=== PATIENT | male | born 1950 | race Caucasian/White ===

== ENCOUNTER → 2018-07-11 11:07 | Outpatient (CLI) | payer MEDICARE, OTHER, SELFPAY ==
[2018-07-11 15:27] LABS: Anion Gap 7 (5-15); BUN 27 mg/dL (7-18); BUN/Creat Ratio 29.7 RATIO (10-20); Calcium,Total 8.8 mg/dL (8.5-10.1); Chloride 107 mmol/L (98-107); Cholesterol 130 mg/dL (200); Creatinine, Serum 0.91 mg/dL (0.70-1.30); EST Glomerular Filtration Rate 88 mL/min (>60); Est Glom Filt Rate - Afr Amer 107 mL/min (>60); Glucose 80 mg/dL (74-106); High Density Lipoprotein 52 mg/dL; PSA,Total - Annual Screen 2.74 ng/mL (0.00-4.00); Sodium Level 141 mmol/L (136-145); Triglycerides 83 mg/dL; Very Low Density Lipoprotein 17 mg/dL (5-40)
== END ==
PROVIDERS: Family Provider Family Medicine; PCP Family Medicine; Referring Provider Family Medicine; Visit Provider Family Medicine
DX: I25.10 Atherosclerotic heart disease of native coronary artery without angina pectoris (principal); E78.00 Pure hypercholesterolemia, unspecified; Z12.5 Encounter for screening for malignant neoplasm of prostate
CPT/HCPCS: 36415; 80048; 80061; 84153; G0103

== ENCOUNTER → 2018-11-27 08:30 | Outpatient (CLI) | payer MEDICARE, SELFPAY ==
[2018-11-27 07:56] VITALS: BMI 40.3
--- NOTE | 2018-11-27 08:55 | RAD_ITS ---
STUDY: X-RAY CHEST REASON FOR EXAM: Male, 68 years old. Shortness of breath x1 month TECHNIQUE: PA and lateral views of the chest. COMPARISON: 02/17/2015 FINDINGS: The lungs are clear and expanded. There is no demonstrated pleural abnormality. Normal size heart. Normal mediastinum and hien. Normal visualized pulmonary arteries. Normal visualized aortic arch and descending thoracic aorta. Normal visualized thoracic spine. Normal visualized ribs, clavicles, and shoulders. There is no demonstrated abnormality of the visualized soft tissue structures of the upper abdomen. RAD/Chest PA and Lateral IMPRESSION: Normal x-ray examination of the chest. Electronically Signed: Bakari Jurado MD at 10:09 EDT , Service support ,
[2018-11-27 09:11] LABS: Anion Gap 8 (5-15); BUN 25 mg/dL (7-18); BUN/Creat Ratio 26.7 RATIO (10-20); Calcium,Total 8.6 mg/dL (8.5-10.1); Chloride 109 mmol/L (98-107); Creatinine, Serum 0.94 mg/dL (0.70-1.30); EST Glomerular Filtration Rate 85 mL/min (>60); Est Glom Filt Rate - Afr Amer 103 mL/min (>60); Glucose 102 mg/dL (74-106); Potassium 4.1 mmol/L (3.5-5.1); Sodium Level 144 mmol/L (136-145)
[2018-11-27 09:30] LABS: BNP,B-Type NATRIURETIC PEPTIDE 121.4 pg/mL (0-100)
== END ==
PROVIDERS: Family Provider Family Medicine; PCP Family Medicine; Visit Provider Nurse Practitioner Acute Care
DX: R06.09 Other forms of dyspnea (principal)
CPT/HCPCS: 36415; 71046; 80048; 83880

== ENCOUNTER → 2018-11-29 07:47 | Outpatient (CLI) | payer MEDICARE, SELFPAY ==
[2018-11-27 07:56] VITALS: BMI 40.3
--- NOTE | 2018-11-30 06:54 | PFTCOMP ---
COMPLETE PULMONARY FUNCTION TEST INTERPRETATION Brief HPI: Patient is a 68 year old male, currently under the care of Katie Jacinto, who presents to [facility] for complete pulmonary function tests secondary to diagnosis of dyspnea on exertion. Respiratory therapist reports good effort and reproducible results. Interpretation: Forced expiration spirometry shows a mild large airways obstructive ventilatory defect with an FEV1 of 100% predicted. There is a significant bronchodilator response in FEV1 by strict ATS criteria. Spirograms are of good quality and plateau slowly, indicating slowly emptying areas of the lungs. The respiratory flow volume loop shows decreased expiratory flow rates at high lung volumes consistent with small airways obstruction. Lung volumes by body plethysmography show a normal total lung capacity at 5.44 L, 90% predicted. All other lung volumes are within normal limits. Diffusion capacity by carbon monoxide is normal at 97% predicted. The airway resistance is normal. No previous pulmonary function tests were available for review. Impression: Fully reversible mild large airways obstructive ventilatory defect, diagnostic of asthma.
== END ==
PROVIDERS: Family Provider Family Medicine; PCP Family Medicine; Referring Provider Nurse Practitioner Acute Care; Visit Provider Nurse Practitioner Acute Care
DX: R06.02 Shortness of breath (principal)
CPT/HCPCS: 94060; 94726; 94729

== ENCOUNTER → 2018-11-30 12:16 | Outpatient (CLI) | payer MEDICARE, SELFPAY ==
[2018-11-27 07:56] VITALS: BMI 40.3
[2018-11-30 12:39] VITALS: PULSE 57; PULSE 64; PULSE 78; PULSE 86; PULSE 92; PULSE 93; PULSE 94; PULSE 99; O2SAT 93; O2SAT 95; O2SAT 97; O2SAT 98; O2SAT 99
--- NOTE | 2018-12-01 10:36 | PCM.PSN.6M ---
PSN 6 Minute Walk Test - 6 Minute Walk Test 6 Minute Walk Test: 6 Minute Walk Test PSN:6-Minute Walk Test Start: 11/30/18 12:39 Freq: Status: Active Protocol: RESP.6MINW Document 11/30/18 12:39 AMENA (Rec: 11/30/18 12:41 AMENA [id number]) 6 Minute Walk Test Date Performed 11/30/18 Time Performed 12:30 Height 5 ft 8 in Weight: 117.934 kg Weight in Pounds 260.[address]: Ar Bronson Assistive device used: None Pre-test Oxygen Delivery Method Room Air Pulse Ox (%) 99 Pulse Rate (60-100 beats/min) 57 L Dyspnea Hannah Scale (0-10) 0 Exertion Hannah Scale (6-20) 6 1st minute Oxygen Delivery Method Room Air Pulse Ox (%) 98 Pulse Rate (60-100 beats/min) 78 2nd minute Oxygen Delivery Method Room Air Pulse Ox (%) 98 Pulse Rate (60-100 beats/min) 86 3rd minute Oxygen Delivery Method Room Air Pulse Ox (%) 98 Pulse Rate (60-100 beats/min) 92 4th minute Oxygen Delivery Method Room Air Pulse Ox (%) 97 Pulse Rate (60-100 beats/min) 93 5th minute Oxygen Delivery Method Room Air Pulse Ox (%) 95 Pulse Rate (60-100 beats/min) 94 6th minute Oxygen Delivery Method Room Air Pulse Ox (%) 93 Pulse Rate (60-100 beats/min) 99 Dyspnea Hannah Scale (0-10) 3 Exertion Hannah Scale (6-20) 13 Post-test Oxygen Delivery Method Room Air Pulse Ox (%) 98 Pulse Rate (60-100 beats/min) 64 Full Laps Walked 22 Partial Lap, Number of Tiles Walked 25 Total Distance Walked (ft) 1323 - Interpretation Interpretation: The patient was able to ambulate 1323 feet over the course of 6 minutes on room air with no assistive devices or breaks. Patient did not experience any desaturation or tachycardia during testing. These findings are consistent with a normal exercise oximetry. - Recommendations Recommendations: No supplemental oxygen is indicated at this time.
== END ==
PROVIDERS: Family Provider Family Medicine; PCP Family Medicine; Referring Provider Nurse Practitioner Acute Care; Visit Provider Nurse Practitioner Acute Care
DX: R06.09 Other forms of dyspnea (principal)
CPT/HCPCS: 94618

== ENCOUNTER → 2019-11-13 09:17 | Outpatient (CLI) | payer MEDICARE, SELFPAY ==
[2018-12-18 09:09] VITALS: BMI 39.6
[2019-11-13 10:05] LABS: Absolute Lymphocyte Count 1.19 X10^3/uL (0.83-4.51); Absolute Neutrophil Count 4.3 X10^3/uL (2.0-7.7); Basophil# 0.04 X10^3/uL; Basophil% 0.6 % (0-1); Eosinophil# 0.42 X10^3/uL; Eosinophils% 6.2 % (0-5); Hematocrit 40.6 % (40-54); Hemoglobin 13.7 g/dL (13.0-16.5); Lymphocyte # 1.19 X10^3/ul (4.0); Lymphocyte % 17.7 % (19-41); Mean Corp Hgb Conc 33.7 g/dL (32-36); Mean Corpuscular Volume 91.9 fL (80-94); Monocyte# 0.74 X10^3/uL; NRBC Flagged by Analyzer 0 % (0-5); Neutrophil # 4.31 X10^3/uL (2.7-7.7); Neutrophil % 64.1 % (47-70); Platelet Count 161 K/mm3 (150-450); RBC Distribution Width SD 43.1 fl (35.1-43.9); Red Blood Count 4.42 M/mm3 (4.6-6.2); White Blood Count 6.7 K/mm3 (4.4-11.0)
[2019-11-13 10:34] LABS: ALB/GLOB Ratio 1.2 RATIO (0.9-2.4); AST(SGOT) 19 U/L (15-37); Alanine Aminotransfer ALT/SGPT 15 U/L (16-61); Albumin, Serum 3.8 g/dL (3.2-5.0); Alkaline Phosphatase 60 U/L (45-117); Anion Gap 6 (5-15); BUN 21 mg/dL (7-18); BUN/Creat Ratio 24.1 RATIO (10-20); Calcium,Total 8.6 mg/dL (8.5-10.1); Chloride 111 mmol/L (98-107); Cholesterol 100 mg/dL (200); Creatinine, Serum 0.87 mg/dL (0.70-1.30); EST Glomerular Filtration Rate 92 mL/min (>60); Est Glom Filt Rate - Afr Amer 111 mL/min (>60); Globulin 3.2 g/dL (2.2-4.2); Glucose 104 mg/dL (74-106); High Density Lipoprotein 47 mg/dL; PSA,Total - Annual Screen 2.53 ng/mL (0.00-4.00); Potassium 4.1 mmol/L (3.5-5.1); Sodium Level 143 mmol/L (136-145); Thyroid Stim Hormone (TSH) 1.04 uIU/mL (0.358-3.74); Triglycerides 78 mg/dL; Very Low Density Lipoprotein 16 mg/dL (5-40)
[2019-11-13 10:54] LABS: Hemoglobin A1c 5.4 % (4.2-6.3)
== END ==
PROVIDERS: PCP Family Medicine; Referring Provider Family Medicine; Visit Provider Family Medicine
DX: Z00.00 Encounter for general adult medical examination without abnormal findings (principal); E78.00 Pure hypercholesterolemia, unspecified; R73.09 Other abnormal glucose; Z12.5 Encounter for screening for malignant neoplasm of prostate
CPT/HCPCS: 36415; 80053; 80061; 83036; 84153; 84443; 85025; G0103

== ENCOUNTER 2020-04-14 06:57 | Day surgery (SDC) | payer MEDICARE, SELFPAY ==
[2019-12-18 06:01] VITALS: BMI 39.6
--- NOTE | 2020-04-14 | COLBX_PTH ---
PATIENT: THIERRY MARTIN LOC: EN U#:[id number] AGE/SX: 69/M ROOM: RE04/14/[address]: Dr. Vasyl Ray MD : 1950 BED: DIS: 04/14/2020 SPEC #: [id number] RECD: 04/14/20 13:03 STATUS: MARY CARMEN MICHAEL #: [id number] RAGHAVENDRA: 04/14/20 00:[address]: Vasyl Ray DEPT: SURGICAL PATHOLOGY RECD BY: Berry Oliva ENTERED: 04/14/20 13:03 SP TYPE: COLON BX OTHR DR: Dr. Anurag Conley MD Tissues: A - Cecum, NOS B - Cecum, NOS C - Cecum, NOS D - COLON BIOPSY Procedures: Surgery Specimen Level IV HEADER OPERATION: Colonoscopy - open access (MAC) PRE-OP DIAGNOSIS: Screening, history colon polyps TISSUE SUBMITTED: A - Cecum polyp (cold snare), B - Cecum polyp biopsy, C - Cecum polyp (cold snare and biopsy), D - Hepatic flexure polyp (cold snare) 7 mm MICROSCOPIC DIAGNOSIS A. Cecum polyp, biopsy: Tubular adenoma. B. Cecum polyp, biopsy: Fragments of tubular adenoma. C. Cecum polyp, biopsy: Fragments of tubular adenoma. D. Hepatic flexure polyp, biopsy: Fragments of tubular adenoma. SJ:margarita 04/15/20 MICROSCOPIC DESCRIPTION Slides are reviewed. GROSS DESCRIPTION A - Received in fixative is one container labeled with the patient's name and designated cecum polyp (cold snare). The specimen consists of a raymundo-pink polyp measuring 0.6 x 0.5 x 0.3 cm. The specimen is totally submitted in one cassette. B - Received in fixative is one container labeled with the patient's name and designated cecum polyp biopsy. The specimen consists of two irregular fragments of light raymundo soft tissue that in aggregate measure 0.5 x 0.2 x 0.1 cm. The specimen is totally submitted in one cassette. C - Received in fixative is one container labeled with the patient's name and designated cecum polyp (cold snare and biopsy). The specimen consists of two irregular fragments of light raymundo soft tissue that in aggregate measure 0.4 x 0.2 x 0.1 cm. The specimen is totally submitted in one cassette. D - Received in fixative is one container labeled with the patient's name and designated hepatic flexure polyp. The specimen consists of two irregular fragments of light raymundo soft tissue that in aggregate measure 0.8 x 0.3 x 0.1 cm. The specimen is totally submitted in one cassette. / CARMITA:margarita 04/14/20 TC:1 CPT: 51612 x4
[2020-04-14 07:17] VITALS: BP 136/98; PULSE 60; RESP 16; TEMP 36.3; O2SAT 98; BMI 41.7
[2020-04-14] MEDS: Lactated Ringers 1,000 ML 100 ML IV (07:37)
--- NOTE | 2020-04-14 08:03 | PCM.HP.STD ---
Problem List (1) Personal history of colonic polyps Status: Acute History of Present Illness Date of Admission: 04/14/20 The patient is a 69 year old M personal history of colon polyps with his most recent colonoscopy September 23, 2013. 6 years ago he had a myocardial infarction and coronary stents. He has been cleared by his extractor loader and unloader to proceed with a colonoscopy. He presents via open access today. Denies bright red blood per rectum or melena. He denies abdominal pain. Past Medical History Past Medical History (Chronic Problems): Chronic Problems (Last Reviewed 11/30/18 @ 13:20 by Katie Jacinto NP-C) Dyspnea on exertion (Chronic) Wheeze (Chronic) CAD (coronary artery disease) (Chronic) Obesity (Chronic) INGRIS (obstructive sleep apnea) (Chronic) BiPAP Medical History: Medical History (Last Reviewed 11/30/18 @ 13:20 by Katie Jacinto NP-C) CAD (coronary artery disease) (Chronic) I25.10 Obesity (Chronic) E66.9 INGRIS (obstructive sleep apnea) (Chronic) G47.33 BiPAP Past heart attack I25.2 HTN (hypertension) I10 Allergies Sulfa (Sulfonamide Antibiotics) Allergy (Verified 04/08/20 16:15) Unknown Home Medications: Ambulatory Orders Medication Instructions Recorded aspirin 81 mg tablet,delayed 81 mg PO QDAY 09/08/17 release atorvastatin 20 mg tablet 20 mg PO QHS 09/08/17 metoprolol tartrate 25 mg tablet 50 mg PO BID 09/08/17 nitroglycerin 0.4 mg sublingual 0.4 mg SUBLINGUAL Q5-15M PRN 09/08/17 tablet albuterol sulfate 90 mcg/actuation 2 puff INHALATION Q6H PRN #18 g 12/18/19 aerosol inhaler Brimonidine Tartrate 0.2% 1 drp EACH EYE BID 04/08/20 [Brimonidine 0.2% 5Ml Bottle] Latanoprost 0.005% [Xalatan 1 drp EACH EYE QHS 04/08/20 Opthalmic] Surgical History: Surgical History (Last Reviewed 11/30/18 @ 13:20 by Katie Jacinto, INSURANCE AGENCY OWNER-C) H/O heart artery stent Z95.5 2013 H/O shoulder surgery Z98.890 1999 Surgical History: rotator cuff repair Psychiatric History: No pertinent psych hx Smoking Status: Never smoker Tobacco Use: Non-smoker Review of Systems Constitutional: Denies: Chills, Fever Cardiovascular: Denies: Chest Pain, Chest Tightness Respiratory: Denies: Cough, Shortness of Breath Gastrointestinal: Denies: Abdominal Pain, Melena Endocrine: Denies: Change in Body Habitus VTE Information - Inpt Only VTE Present on Admission: No Patient Problems: Active and Suspected Problems (Last Reviewed 11/30/18 @ 13:20 by VIRA Lezama) Personal history of colonic polyps (Acute) - Physical Exam Vitals/I&O's: Vital Signs Temp Pulse Resp BP Pulse Ox 97.4 F L 60 16 136/98 H 98 04/14/20 07:17 04/14/20 07:17 04/14/20 07:17 04/14/20 07:17 04/14/20 07:17 Oxygen Delivery Method Room Air Weight: 274 lb 4.081 oz Body Mass Index (BMI) 41.7 General: Alert, Oriented x3, Cooperative, No apparent distress HEENT: Atraumatic Oral: Moist Mucosa Neck: Supple Lungs: Clear to auscultation, Normal air movement Cardiovascular: Regular rate, Regular Rhythm Abdomen: Bowel Sounds Present, Soft, Non Tender Extremities: No Calf Tenderness Psych/Mental Status: Normal Affect Current Medications Lactated Ringer's () 1,000 mls @ 100 mls/hr IV .Q10H MAEVE Last Admin: 04/14/20 07:37 Dose: 100 mls/hr Documented by: Assessment/Plan All Active Problems (Last Reviewed 11/30/18 @ 13:20 by VIRA Lezama) Personal history of colonic polyps (Acute) I plan to proceed with a colonoscopy today with possible biopsy or polyp removal was indicated. He is aware of the technique, benefit, risk, alternatives. He has had an opportunity to ask and have questions answered. He presents via open access. We will proceed as noted. Vasyl Ray M.D., F.A.C.S. Procedure Criteria Procedure Type: Elective COVID Risk Discussion: The surgeon/proceduralist and patient have discussed in detail the risk of exposure to and/or potential harm posed by the COVID-19 virus with having a surgery/procedure at this time versus the risk of delaying the surgery/procedure. It is not possible to know either the risk of delaying the surgery or procedure or chance of getting an infection with perfect accuracy, but a joint decision was made between the patient and the surgeon/proceduralist to proceed at this time with the scheduled surgery/procedure as indicated on the consent form.
[2020-04-14 08:43] VITALS: BP 128/67; BP 136/98; PULSE 58; RESP 18; TEMP 36.2; O2SAT 99
--- NOTE | 2020-04-14 08:47 | OP.COLON_ITS ---
Patient Name: Lei Castro Procedure Date: 04/14/2020 8:03 AM Date of : 1950 Age: 69 Procedure: Colonoscopy Indications: High risk colon cancer surveillance: Personal history of colonic polyps Providers: Vasyl Ray MD Referring MD: Anurag Conley Medicines: See the Anesthesia note for documentation of the administered medications Patient Profile: Last Colonoscopy: September 2013. Complications: No immediate complications. Procedure: Pre-Anesthesia Assessment: - Prior to the procedure, a History and Physical was performed, and patient medications and allergies were reviewed. The patient's tolerance of previous anesthesia was also reviewed. The risks and benefits of the procedure and the sedation options and risks were discussed with the patient. All questions were answered, and informed consent was obtained. Prior Anticoagulants: The patient has taken aspirin. ASA Grade Assessment: III - A patient with severe systemic disease. After reviewing the risks and benefits, the patient was deemed in satisfactory condition to undergo the procedure. After I obtained informed consent, the scope was passed under direct vision. Throughout the procedure, the patient's blood pressure, pulse, and oxygen saturations were monitored continuously. The adult colonoscope was introduced through the anus and advanced to the cecum, identified by appendiceal orifice and ileocecal valve. The colonoscopy was performed without difficulty. The patient tolerated the procedure well. The quality of the bowel preparation was good. The ileocecal valve and the appendiceal orifice were photographed. Scope In: 8:16:06 AM Scope Withdrawal Time 0 hours 18 minutes 56 seconds Scope Out: 8:38:49 AM Total Procedure Duration Time 0 hours 22 minutes 43 seconds Findings: The digital rectal exam findings include non-thrombosed external hemorrhoids, non-thrombosed internal hemorrhoids and internal hemorrhoids that prolapse with straining, but spontaneously regress to the resting position (Grade II). Pertinent negatives include normal prostate (size, shape, and consistency). A 7 mm polyp was found in the cecum. The polyp was sessile. The polyp was removed with a cold snare. Resection and retrieval were complete. A 4 mm polyp was found in the cecum. The polyp was sessile. The polyp was removed with a cold biopsy forceps. Resection and retrieval were complete. A 6 mm polyp was found in the cecum. The polyp was sessile. The polyp was removed with a cold snare. Resection and retrieval were complete. A 7 mm polyp was found in the hepatic flexure. The polyp was sessile. The polyp was removed with a cold snare. Resection and retrieval were complete. Impression: - Non-thrombosed external hemorrhoids, non-thrombosed internal hemorrhoids and internal hemorrhoids that prolapse with straining, but spontaneously regress to the resting position (Grade II) found on digital rectal exam. - One 7 mm polyp in the cecum, removed with a cold snare. Resected and retrieved. - One 4 mm polyp in the cecum, removed with a cold biopsy forceps. Resected and retrieved. - One 6 mm polyp in the cecum, removed with a cold snare. Resected and retrieved. - One 7 mm polyp at the hepatic flexure, removed with a cold snare. Resected and retrieved. Recommendation: - Resume previous diet. - Continue present medications. - Await pathology results. - Repeat colonoscopy in 3 years for surveillance. - Telephone my office for pathology results in 1 week. Procedure Code(s): --- Professional --- 81070, Colonoscopy, flexible; with removal of tumor(s), polyp(s), or other lesion(s) by snare technique 86567, 59, Colonoscopy, flexible; with biopsy, single or multiple Diagnosis Code(s): --- Professional --- Z86.010, Personal history of colonic polyps K64.1, Second degree hemorrhoids K64.4, Residual hemorrhoidal skin tags D12.0, Benign neoplasm of cecum D12.3, Benign neoplasm of transverse colon (hepatic flexure or splenic flexure) CPT copyright 2017 [employer]. All rights reserved. The codes documented in this report are preliminary and upon proof carrier review may be revised to meet current compliance requirements. Vasyl Ray MD 04/14/2020 8:47:08 AM This report has been signed electronically. Number of Addenda: 0 Note Initiated On: 04/14/2020 8:03 AM
--- NOTE | 2020-04-14 08:48 | OP.CCLET_ITS ---
04/14/2020 Anurag Conley [address] [place] [address] Re : Colonoscopy procedure for Lei Castro Dear Dr. Conley This procedure was performed on Tuesday, April 14, 2020. My impressions and recommendations are as follows: Impressions : - Non-thrombosed external hemorrhoids, non-thrombosed internal hemorrhoids and internal hemorrhoids that prolapse with straining, but spontaneously regress to the resting position (Grade II) found on digital rectal exam. - One 7 mm polyp in the cecum, removed with a cold snare. Resected and retrieved. - One 4 mm polyp in the cecum, removed with a cold biopsy forceps. Resected and retrieved. - One 6 mm polyp in the cecum, removed with a cold snare. Resected and retrieved. - One 7 mm polyp at the hepatic flexure, removed with a cold snare. Resected and retrieved. Recommendations : - Resume previous diet. - Continue present medications. - Await pathology results. - Repeat colonoscopy in 3 years for surveillance. - Telephone my office for pathology results in 1 week. My findings are described in the full procedure note, which is enclosed. If I can be of further assistance, please feel free to contact me at Doctor phone number(s): Work: . Sincerely, Vasyl Ray MD 04/14/2020 8:47:08 AM This report has been signed electronically.
[2020-04-14 08:50] VITALS: BP 118/67; BP 136/98; PULSE 58; RESP 16; O2SAT 98
[2020-04-14 08:55] VITALS: BP 129/74; BP 136/98; PULSE 59; RESP 18; O2SAT 97
[2020-04-14 09:00] VITALS: BP 130/70; BP 136/98; PULSE 58; RESP 16; TEMP 36.7; O2SAT 98
[2020-04-14 09:24] VITALS: BP 136/98
== END 2020-04-14 09:24 | disposition home or self-care (01) ==
LOC: EN 06:57 → AC 06:58 → ACINP 13:29
PROVIDERS: Anesthesiology; PCP Family Medicine; Referring Provider Family Medicine; Visit Provider Surgery
PROC: 0DJD8ZZ Inspection of Lower Intestinal Tract, Via Natural or Artificial Opening Endoscopic (ICD-10-PCS; CPT 45378; principal; 2020-04-14 07:55)
DX: Z12.11 Encounter for screening for malignant neoplasm of colon (principal); Z11.59 Encounter for screening for other viral diseases; Z87.19 Personal history of other diseases of the digestive system; K64.1 Second degree hemorrhoids; K64.4 Residual hemorrhoidal skin tags; D12.0 Benign neoplasm of cecum; D12.3 Benign neoplasm of transverse colon; I25.2 Old myocardial infarction; E66.9 Obesity, unspecified; G47.33 Obstructive sleep apnea (adult) (pediatric); I10 Essential (primary) hypertension; I25.10 Atherosclerotic heart disease of native coronary artery without angina pectoris; Z79.82 Long term (current) use of aspirin; Z79.899 Other long term (current) drug therapy
CPT/HCPCS: 45380; 45385; 87635; 88305; 94799; J7120; U0003

== ENCOUNTER → 2020-06-02 08:31 | Outpatient (CLI) | payer MEDICARE, SELFPAY ==
--- NOTE | 2020-06-02 08:38 | RAD_ITS ---
STUDY: X-RAY - ESOPHAGUS (BARIUM SWALLOW) WITH FLUOROSCOPY REASON FOR EXAM: Male, 69 years old. DYSPHAGIA; FOOD STICKS MID-STERNAL AREA X 1 YR. TECHNIQUE: 22 view(s) of the esophagus were obtained following swallowing of barium. FLUOROSCOPY TIME (if supplied): (0:49) minutes/seconds COMPARISON: None. FINDINGS: There is no demonstrated esophageal foreign body. There is no demonstrated stricture or mucosal abnormality. Normal gastroesophageal junction, without a demonstrated hiatal hernia. The patient ingested a 12 mm tablet at bedtime without any difficulties. There is a small diverticulum arising along the medial aspect of the second portion of the duodenum. Normal visualized aortic arch and descending thoracic aorta. Pulmonary nodule seen in the left lower lobe. These most likely are calcified granulomas. There are diffuse degenerative changes of the visualized thoracic spine. RAD/Esophagus Dual Contrast IMPRESSION: No evidence of esophageal reflux. Electronically Signed: Enmanuel Ulloa, at 12:28 EDT , Service support ,
== END ==
PROVIDERS: PCP Family Medicine; Referring Provider Family Medicine; Visit Provider Family Medicine
DX: R13.10 Dysphagia, unspecified (principal)
CPT/HCPCS: 74221

== ENCOUNTER → 2020-07-07 10:27 | Outpatient (CLI) | payer MEDICARE, SELFPAY ==
[2020-06-19 10:02] VITALS: BMI 41.7
--- NOTE | 2020-07-07 10:30 | RAD_ITS ---
HISTORY: hip pain EXAMINATION/TECHNIQUE: XR AP pelvis and bilateral hips total 5 views COMPARISON: None FINDINGS: No dislocation or acute fracture. Remote, healed fractures with cortical bone thickening of the right superior and inferior pubic rami. Bilateral hip joints appear preserved. 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 Left SI joint appears preserved. Degenerative disc disease and degenerative spondylosis of the lower lumbar spine. RAD/Hips B/L min 2 views w/ Pelvis IMPRESSION: 1. No acute fracture or acute disease. Remote fracture right pubic rami. 2. Ankylosis right SI joint. 3. Degenerative disc disease and degenerative spondylosis of the lower lumbar spine. at 2353 Reported and signed by: Ziyad Kulkarni MD Electronically Signed: Ziyad Kulkarni, at 23:52 EDT Tel , Service support ,
--- NOTE | 2020-07-07 10:30 | RAD_ITS ---
HISTORY: knee pain EXAMINATION/TECHNIQUE: XR left knee 4 views with weightbearing COMPARISON: 09/17/2015 FINDINGS: No fracture or acute osseous abnormality. Osteoarthritis with mild narrowing of the tibiofemoral medial compartment. The patellofemoral joint and lateral joint space compartment appear preserved. No bony erosions. Minor spurring of the anterior superior margin of the talus at the quadriceps insertion. No joint effusion. A fabella is present. RAD/Knee 4 or More Views IMPRESSION: 1. No fracture or acute disease. 2. Medial compartment left knee mild osteoarthritis. at 2333 Reported and signed by: Ziyad Kulkarni MD Electronically Signed: Ziyad Kulkarni, at 23:32 EDT Tel , Service support ,
--- NOTE | 2020-07-07 10:30 | RAD_ITS ---
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 No fracture or acute disease. No suspicious bony lesion. Joint spaces are preserved. Minor spurring of the anterior superior margin of the patella at quadriceps insertion. A fabella is present. No joint effusion. RAD/Knee 4 or More Views IMPRESSION: 1. No acute disease or significant arthritis. 2. Minor patellar spurring. at 2328 Reported and signed by: Ziyad Kulkarni MD Electronically Signed: Ziyad Kulkarni, at 23:27 EDT Tel , Service support ,
== END ==
PROVIDERS: PCP Family Medicine; Referring Provider Family Medicine; Visit Provider Family Medicine
DX: M25.559 Pain in unspecified hip (principal); M25.569 Pain in unspecified knee
CPT/HCPCS: 73521; 73564

== ENCOUNTER 2020-07-10 08:19 | Day surgery (SDC) | payer MEDICARE, SELFPAY ==
[2020-06-19 10:02] VITALS: BMI 41.7
[2020-07-10 08:58] VITALS: BP 129/74; PULSE 58; RESP 18; TEMP 36.1; O2SAT 100; BMI 43.2
[2020-07-10] MEDS: Lactated Ringers 1,000 ML 100 ML IV (09:13)
--- NOTE | 2020-07-10 09:16 | HP.PCM_ITS ---
Problem List (1) 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 Status: Acute History and Physical Date of Admission: 07/10/20 Intake Visit Reasons: EGD, DYSPHAGIA Chief Complaint: Shortness of breath on exertion Allergies Sulfa (Sulfonamide Antibiotics) Allergy (Verified 06/19/20 10:02) Unknown Medications aspirin 81 mg tablet,delayed release 81 mg PO QDAY 09/08/17 [History Confirmed 06/19/20] atorvastatin 20 mg tablet 20 mg PO QHS 09/08/17 [History Confirmed 06/19/20] metoprolol tartrate 25 mg tablet 50 mg PO BID 09/08/17 [History Confirmed 06/19/20] nitroglycerin 0.4 mg sublingual tablet 0.4 mg SUBLINGUAL Q5-15M PRN 09/08/17 [History Confirmed 06/19/20] albuterol sulfate 90 mcg/actuation aerosol inhaler 2 puff INHALATION Q6H PRN #18 g 12/18/19 [Rx Confirmed 06/19/20] Brimonidine Tartrate 0.2% [Brimonidine 0.2% 5Ml Bottle] 1 drp EACH EYE BID 04/08/20 [History Confirmed 06/19/20] Latanoprost 0.005% [Xalatan Opthalmic] 1 drp EACH EYE QHS 04/08/20 [History Confirmed 06/19/20] PFSH Surgical History H/O heart artery stent (Resolved) H/O shoulder surgery (Resolved) Family History Father Myocardial infarction, Onset Age: 73 Social History (Updated 06/19/20 @ 10:[address] Vasyl Ray MD) Smoking Status: Never smoker second hand exposure: Yes alcohol intake: current alcohol intake frequency: a few times a month substance use type: does not use HPI HPI HPI: THIERRY MARTIN, is a 69 M who presents to the office today for surgical consultation regarding esophageal dysphasia and intermittent food foreign body obstructions. The patient is referred by his primary care physician Dr Anurag Conley written complement surgical consult recommendations will return to him. The patient states that for over a year he has been having trouble with food intermittently becoming stuck in what he thinks is his mid X esophagus mids ternal area. Chicken and meat are prime offenders. Sometimes he just has to wait and let it go down. Taking a liquids immediately will cause significant discomfort. Sometimes he has to regurgitate. He has never had an upper endoscopy. He has not have to had emergency endoscopy. He was placed on what sounds like omeprazole by Dr Anurag Conley but the patient states that within 3 days he developed severe diarrhea. He has stopped that medication. It is of note that on April 14, 2020 I performed a colonoscopy for him. 4 separate polyps all tubular adenomas were identified and removed. He did not have any difficulty with that endoscopic procedure. He denies reflux or heartburn symptoms. He is not currently on any acid suppression medication. He is on aspirin therapy in addition to his atorvastatin other medications for coronary disease. He had a contrast upper GI study as noted below without obvious finding [facility] [address] [place] [address] Esophagus Dual Contrast MR#: [id number] Name: THIERRY MARTIN Judd #:[id number] : 1950M 69 From: Enmanuel Ulloa MD PCP:Dr. Anurag Conley MD Status:REG CLI Study:Esophagus Dual Contrast Date of Exam:06/02/20 Exam#[id number] Ordering Dr: Anurag Conley MD STUDY: X-RAY - ESOPHAGUS (BARIUM SWALLOW) WITH FLUOROSCOPY REASON FOR EXAM: Male, 69 years old. DYSPHAGIA; FOOD STICKS MID-STERNAL AREA X 1 YR. TECHNIQUE: 22 view(s) of the esophagus were obtained following swallowing of barium. FLUOROSCOPY TIME (if supplied): (0:49) minutes/seconds COMPARISON: None. FINDINGS: There is no demonstrated esophageal foreign body. There is no demonstrated stricture or mucosal abnormality. Normal gastroesophageal junction, without a demonstrated hiatal hernia. The patient ingested a 12 mm tablet at bedtime without any difficulties. There is a small diverticulum arising along the medial aspect of the second portion of the duodenum. Normal visualized aortic arch and descending thoracic aorta. Pulmonary nodule seen in the left lower lobe. These most likely are calcified granulomas. There are diffuse degenerative changes of the visualized thoracic spine. RAD/Esophagus Dual Contrast IMPRESSION: No evidence of esophageal reflux. Electronically Signed: Enmanuel Ulloa, at 12:28 EDT , Service support , HPI HPI HPI: THIERRY MARTIN, is a 69 M who presents to the office today for Exam Const General: cooperative, comfortable, no acute distress Nutritional Appearance: obese morbidly obese Orientation: alert, awake HENMT Head: normal to inspection Neck Neck: normal visual inspection Resp Auscultation: clear to auscultation bilaterally Cardio Rate: regular rate Rhythm: regular rhythm GI Palpation: soft Auscultation: normal bowel sounds Other: Obese, unable to detect internal organs Musc Cervical Spine: normal cervical lordosis Neuro General: alert, awake Extrem General: no calf tenderness Other: 1+ bilateral extremity swelling Psych Affect: normal affect Assessment & Plan Problems 1. Dysphasia R47.02 2. 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 T18.108A Plan By history the patient is describing episodes of esophageal dysphasia and intermittent esophageal food foreign body obstruction. Although the contrast upper GI study with barium tablet was normal I do strongly recommend to him a esophagogastroduodenoscopy with possible biopsy and or dilatation if indicated. I discussed with him technique, benefit, risk and alternatives. He was appropriately placed on acid suppression medication PPI but did not tolerate that because of diarrhea. In the interim I will ask him to take famotidine 20 g orally twice daily. He is aware that I anticipate an upper endoscopy with biopsy and if a Schatzki ring or even eosinophilic esophagitis is identified then potential for hydrostatic dilatation. He is aware of the increased risk of intervention if dilatation is performed. He has had an opportunity to ask and have questions answered. He is additionally aware that if the upper endoscopy is nonrevealing then I would recommend future esophageal manometry for him. He has had an opportunity to ask and have questions answered. We will schedule and proceed at his discretion. I appreciate the ongoing opportunity of assisting with her surgical care. Copy: Dr Anurag Ray, M.D., F.A.C.S. Coding Level of Care Code 01392 Diagnoses Dysphasia R47.02 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 T18.108A I have re-examined the patient. There are no clinical changes since date of exam. Procedure Criteria Procedure Type: Elective COVID Risk Discussion: The surgeon/proceduralist and patient have discussed in detail the risk of exposure to and/or potential harm posed by the COVID-19 virus with having a surgery/procedure at this time versus the risk of delaying the surgery/procedure. It is not possible to know either the risk of delaying the surgery or procedure or chance of getting an infection with perfect accuracy, but a joint decision was made between the patient and the surgeon/proceduralist to proceed at this time with the scheduled surgery/procedure as indicated on the consent form.
--- NOTE | 2020-07-10 09:30 | IMM_PTH ---
PATIENT: THIERRY MARTIN LOC: EN U#:[id number] AGE/SX: 69/M ROOM: RE07/10/[address]: Dr. Vasyl Ray MD : 1950 BED: DIS: 07/10/2020 SPEC #: [id number] RECD: 07/10/20 13:55 STATUS: MARY CARMEN REQ #: [id number] RAGHAVENDRA: 07/10/20 09:[address]: Vasyl Ray DEPT: IMMUNOHISTOCHEMISTRY RECD BY: Raysa Quach ENTERED: 07/10/20 13:55 SP TYPE: IMMUNO OTHR DR: Dr. Anurag Conley MD Tissues: A - Stomach, NOS Procedures: H Pylori (initial) PHYSICIAN & INSTITUTION [place] [address] SPECIMEN INFORMATION: Tissue Source: A - Antral biopsy Clinical Info: Intermittent obstruction of distal esophagus due to foreign body Specimen Number: [id number] CPT code: 32724 METHODOLOGY: Deparaffinized sections of prefer/formalin-fixed tissue or PAP/DQ stained slides are incubated with monoclonal/polyclonal antibodies/oligonucleotide probes. Localization is made via biotin free immunoperoxidase method. Appropriate controls are performed and reacted as expected. Results on target cell population are indicated in the following table: RESULTS: ANTIBODY / CLONE RESULT Block A H Pylori (polyclonal) negative These tests were developed and their performance characteristics determined by [facility]. They may not have been cleared or approved by the U.S. Food and Drug Administration. The FDA has determined that such clearance or approval is not necessary. INTERPRETATION: A. Antral biopsy: Negative for Helicobacter pylori organisms. SJ:margarita 07/13/20
--- NOTE | 2020-07-10 09:30 | EGD_PTH ---
PATIENT: THIERRY MATRIN LOC: EN U#:[id number] AGE/SX: 69/M ROOM: RE07/10/[address]: Dr. Vasyl Ray MD : 1950 BED: DIS: 07/10/2020 SPEC #: [id number] RECD: 07/10/20 11:39 STATUS: MARY CARMEN MICHAEL #: [id number] RAGHAVENDRA: 07/10/20 09:[address]: Vasyl Ray DEPT: SURGICAL PATHOLOGY RECD BY: Bairon Steward ENTERED: 07/10/20 12:25 SP TYPE: EGD BIOPSY OTHR DR: Dr. Anurag Conley MD Tissues: A - Gastric mucous membrane B - Esophagus, NOS Procedures: Special Stain Group II Special Stain Group I Surgery Specimen Level IV GMS Stain (control) Alcian Blue/PAS (control) HEADER OPERATION: EGD PRE-OP DIAGNOSIS: Intermittent obstruction of distal esophagus due to foreign body TISSUE SUBMITTED: A - Antral biopsy for H. pylori and path, B - Distal esophagus biopsies MICROSCOPIC DIAGNOSIS A. Antral biopsy: Mild gastritis. See microscopic description and comment. B. Distal esophagus, biopsy: Fragments of gastroesophageal mucosa with focal ulceration, acute and chronic inflammation. Focal intestinal metaplasia (goblet cell metaplasia) is noted, consistent with Rodriguez's esophagus. Negative for dysplasia. Special stain for fungi is negative for organisms; matched control is appropriate. See comment. SJ:margarita 07/13/20 COMMENT A. The results of immunohistochemistry for Helicobacter pylori will be reported separately ([id number]). B. Alcian blue/PAS stain with matched control is used in the evaluation of the specimen. MICROSCOPIC DESCRIPTION Slides are reviewed. A. The specimen shows fragments of gastric mucosa with chronic inflammatory cell infiltrates in the lamina propria consisting of lymphocytes and plasma cells, consistent with mild chronic gastritis. GROSS DESCRIPTION A - Received in fixative is one container labeled with the patient's name and designated antral biopsy. The specimen consists of one irregular fragment of light raymundo soft tissue that measures 0.5 x 0.2 x 0.1 cm. The specimen is totally submitted in one cassette. B - Received in fixative is one container labeled with the patient's name and designated distal esophagus biopsy. The specimen consists of multiple irregular fragments of light raymundo soft tissue that in aggregate measure 1 x 0.3 x 0.1 cm. The specimen is totally submitted in one cassette. / SJ:rg 07/10/20 TC:2 CPT: 27189 x2, 99352, 39685
[2020-07-10 10:23] VITALS: BP 129/74; BP 142/62; PULSE 68; RESP 18; TEMP 36.9; O2SAT 91
--- NOTE | 2020-07-10 10:25 | OP.EGD_ITS ---
Patient Name: Lei Castro Procedure Date: 07/10/2020 10:06 AM Date of : 1950 Age: 69 Procedure: Upper GI endoscopy Indications: Dysphagia Providers: Vasyl Ray MD Referring MD: Anurag Conley Medicines: See the Anesthesia note for documentation of the administered medications Complications: No immediate complications. Procedure: Pre-Anesthesia Assessment: - Prior to the procedure, a History and Physical was performed, and patient medications and allergies were reviewed. The patient's tolerance of previous anesthesia was also reviewed. The risks and benefits of the procedure and the sedation options and risks were discussed with the patient. All questions were answered, and informed consent was obtained. Prior Anticoagulants: The patient has taken no previous anticoagulant or antiplatelet agents. ASA Grade Assessment: II - A patient with mild systemic disease. After reviewing the risks and benefits, the patient was deemed in satisfactory condition to undergo the procedure. After obtaining informed consent, the endoscope was passed under direct vision. Throughout the procedure, the patient's blood pressure, pulse, and oxygen saturations were monitored continuously. The Endoscope was introduced through the mouth, and advanced to the second part of duodenum. The upper GI endoscopy was accomplished without difficulty. The patient tolerated the procedure well. Scope In: 10:13:04 AM Scope Out: 10:18:13 AM Total Procedure Duration Time 0 hours 5 minutes 9 seconds Findings: LA Grade A (one or more mucosal breaks less than 5 mm, not extending between tops of 2 mucosal folds) esophagitis with no bleeding was found 40 cm from the incisors. Biopsies were taken with a cold forceps for histology. Some swelling at this site, scope passes easily, no distinct ring. Hiatal hernia as a component, possible small diverticulum A small hiatal hernia was present. Localized mild inflammation was found in the gastric antrum. Biopsies were taken with a cold forceps for histology. The examined duodenum was normal. Impression: - LA Grade A reflux esophagitis. Biopsied. - Small hiatal hernia. - Chronic gastritis. Biopsied. - Normal examined duodenum. Recommendation: - Await pathology results. - Discharge patient to home. - Resume previous diet. - Continue present medications. - Telephone my office for pathology results in 1 week. Procedure Code(s): --- Professional --- 96989, Esophagogastroduodenoscopy, flexible, transoral; with biopsy, single or multiple Diagnosis Code(s): --- Professional --- K21.0, Gastro-esophageal reflux disease with esophagitis K44.9, Diaphragmatic hernia without obstruction or gangrene K29.50, Unspecified chronic gastritis without bleeding R13.10, Dysphagia, unspecified CPT copyright 2017 [employer]. All rights reserved. The codes documented in this report are preliminary and upon cake batter mixer review may be revised to meet current compliance requirements. Vasyl Ray MD 07/10/2020 10:25:14 AM This report has been signed electronically. Number of Addenda: 0 Note Initiated On: 07/10/2020 10:06 AM
--- NOTE | 2020-07-10 10:26 | OP.CCLET_ITS ---
07/10/2020 Anurag Conley [address] [place] [address] Re : Upper GI endoscopy procedure for Lei Castro Dear Dr. Conley This procedure was performed on Friday, July 10, 2020. My impressions and recommendations are as follows: Impressions : - LA Grade A reflux esophagitis. Biopsied. - Small hiatal hernia. - Chronic gastritis. Biopsied. - Normal examined duodenum. Recommendations : - Await pathology results. - Discharge patient to home. - Resume previous diet. - Continue present medications. - Telephone my office for pathology results in 1 week. My findings are described in the full procedure note, which is enclosed. If I can be of further assistance, please feel free to contact me at Doctor phone number(s): Work: . Sincerely, Vasyl Ray MD 07/10/2020 10:25:14 AM This report has been signed electronically.
[2020-07-10 10:27] VITALS: BP 115/41; BP 129/74; PULSE 64; RESP 18; O2SAT 94
[2020-07-10 10:35] VITALS: BP 108/49; BP 129/74; PULSE 62; RESP 18; O2SAT 96
[2020-07-10 10:40] VITALS: BP 128/75; BP 129/74; PULSE 60; RESP 18; TEMP 36.4; O2SAT 96
[2020-07-10 10:54] VITALS: BP 129/74
== END 2020-07-10 11:02 | disposition home or self-care (01) ==
LOC: EN 08:20 → AC 08:21
PROVIDERS: Anesthesiology; PCP Family Medicine; Referring Provider Family Medicine; Visit Provider Surgery
PROC: 0DJ08ZZ Inspection of Upper Intestinal Tract, Via Natural or Artificial Opening Endoscopic (ICD-10-PCS; CPT 43235; principal; 2020-07-10 09:25)
DX: K21.00 Gastro-esophageal reflux disease with esophagitis, without bleeding (principal); K44.9 Diaphragmatic hernia without obstruction or gangrene; R47.02 Dysphasia; Z20.828 Contact with and (suspected) exposure to other viral communicable diseases; R13.10 Dysphagia, unspecified; K29.50 Unspecified chronic gastritis without bleeding; I10 Essential (primary) hypertension; I25.2 Old myocardial infarction; G47.30 Sleep apnea, unspecified; Z79.899 Other long term (current) drug therapy; Z79.82 Long term (current) use of aspirin; Z86.010 Personal history of colon polyps; J45.909 Unspecified asthma, uncomplicated
CPT/HCPCS: 43239; 87635; 88305; 88312; 88313; 88342; C9803; J7120; J2405; U0003

== ENCOUNTER → 2020-08-05 09:52 | Outpatient (CLI) | payer MEDICARE, SELFPAY ==
[2020-07-10 08:58] VITALS: BMI 43.2
[2020-08-05 12:30] LABS: Absolute Neutrophil Count 4.5 X10^3/uL (2.0-7.7); Basophil# 0.06 X10^3/uL; Basophil% 0.8 % (0-1); Eosinophil# 0.47 X10^3/uL; Eosinophils% 6.5 % (0-5); Hematocrit 42.8 % (40-54); Hemoglobin 14.3 g/dL (13.0-16.5); Lymphocyte % 18.1 % (19-41); Mean Corp Hgb Conc 33.4 g/dL (32-36); Mean Corpuscular Hgb 31.4 pg (27.0-32.0); Mean Corpuscular Volume 94.1 fL (80-94); Mean Platelet Vol. 11.3 fl (6.2-12.0); Monocyte# 0.81 X10^3/uL; Monocyte% 11.3 % (0-10); NRBC Flagged by Analyzer 0 % (0-5); Neutrophil % 62.6 % (47-70); Platelet Count 169 K/mm3 (150-450); RBC Distribution Width CV 12.7 % (11.6-14.6); RBC Distribution Width SD 44.7 fl (35.1-43.9); Red Blood Count 4.55 M/mm3 (4.6-6.2); White Blood Count 7.2 K/mm3 (4.4-11.0)
[2020-08-05 12:51] LABS: ALB/GLOB Ratio 1.2 RATIO (0.9-2.4); AST(SGOT) 16 U/L (15-37); Alanine Aminotransfer ALT/SGPT 16 U/L (16-61); Albumin, Serum 3.7 g/dL (3.2-5.0); Alkaline Phosphatase 65 U/L (45-117); Anion Gap 3 (5-15); BUN 22 mg/dL (7-18); BUN/Creat Ratio 23.5 RATIO (10-20); Calcium,Total 8.5 mg/dL (8.5-10.1); Chloride 112 mmol/L (98-107); Cholesterol 117 mg/dL (200); Creatinine, Serum 0.94 mg/dL (0.70-1.30); EST Glomerular Filtration Rate 85 mL/min (>60); Est Glom Filt Rate - Afr Amer 102 mL/min (>60); Globulin 3.2 g/dL (2.2-4.2); Glucose 104 mg/dL (74-106); High Density Lipoprotein 54 mg/dL; Potassium 4.2 mmol/L (3.5-5.1); Protein, Total 6.9 g/dL (6.4-8.2); Sodium Level 142 mmol/L (136-145); Triglycerides 63 mg/dL; Very Low Density Lipoprotein 13 mg/dL (5-40)
[2020-08-07 11:28] LABS: Hemoglobin A1c 5.4 % (3.8-5.6)
== END ==
PROVIDERS: PCP Family Medicine; Referring Provider Family Medicine; Visit Provider Family Medicine
DX: I25.10 Atherosclerotic heart disease of native coronary artery without angina pectoris (principal); R73.09 Other abnormal glucose; E78.00 Pure hypercholesterolemia, unspecified
CPT/HCPCS: 36415; 80053; 80061; 83036; 85025

== ENCOUNTER → 2020-08-18 10:43 | Outpatient (CLI) | payer MEDICARE, SELFPAY ==
--- NOTE | 2020-08-18 10:46 | ECHOCS_ITS ---
Reason For Study: Dyspnea on Exertion Procedure This was a 2D Doppler, Color Flow transthoracic echocardiogram. Technically difficult study due to patient body habitus. Contrast injection performed. The study was technically difficult. Contrast injection was performed. Exam performed in department. Left Ventricle Normal LV size. Segmental dysfunction with preserved ejection fraction (see wall motion). The estimated ejection fraction is 60 %. There is evidence of diastolic dysfunction. Posterior-Basal: Hypokinetic. Infero-Basal: Hypokinetic. Mid-Posterior: Hypokinetic. Right Ventricle Normal RV size. Normal systolic function. Atria The left atrium is mildly enlarged. The right atrium is mildly enlarged. No doppler evidence for ASD. Mitral Valve There is no mitral annular calcification. Normal mitral valve. Mild (1+) mitral valve insufficiency. Tricuspid Valve Normal tricuspid valve. Mild tricuspid valve insufficiency. Right ventricular systolic pressure estimated to be 43 mmHg. Aortic Valve Trisinus/trileaflet aortic valve. Normal aortic valve. Pulmonic Valve The pulmonic valve is not well visualized. Mild (1+) pulmonic valve insufficiency. Great Vessels Normal sized aortic root. Pericardium/Pleural No pericardial effusion. Medication 22 gauge I.V. with prn adaptor inserted into left arm. Diluted definity 4ml given slow IV push to enhance endocardial definition. MMode/2D Measurements & Calculations LVIDd: 4.7 cm IVSd: 1.2 cm Ao root diam: 3.7 cm LVIDs: 3.4 cm LVPWd: 0.57 cm LA dimension: 4.1 cm FS: 27.1 % LAV(MOD-bp): 79.0 ml LA A4 area: 24.6 cm2 RA A4 area: 23.0 cm2 LAV(MOD-bp) Indexed: 34.0 ml/m2 LAV(MOD-sp2): 71.8 ml LAV(MOD-sp4): 75.5 ml Time Measurements MV dec time: 0.21 sec Doppler Measurements & Calculations MV E max mu: 97.0 cm/sec Lat Peak E' Mu: 10.2 cm/sec Med Peak E' Mu: 7.0 cm/sec MV A max mu: 116.3 cm/sec E/E' lat: 9.5 E/E' med: 13.9 MV E/A: 0.83 MV V2 max: 118.5 cm/sec MV P1/2t max mu: 100.2 cm/sec Ao V2 max: 132.7 cm/sec MV max P.6 mmHg MV P1/2t: 102.7 msec Ao max P.0 mmHg MV V2 mean: 55.8 cm/sec MV dec slope: 285.6 cm/sec2 MV mean P.5 mmHg MV V2 VTI: 36.6 cm MVA(P1/2t): 2.1 cm2 LV V1 max: 118.9 cm/sec PA V2 max: 105.0 cm/sec TR max mu: 314.9 cm/sec LV V1 max P.7 mmHg TR max P.7 mmHg Interpretation Summary The study was technically difficult. Contrast injection was performed. Segmental dysfunction with preserved ejection fraction (see wall motion). The estimated ejection fraction is 60 %. The left atrium is mildly enlarged. The right atrium is mildly enlarged. Mild (1+) mitral valve insufficiency. Mild tricuspid valve insufficiency. Mild (1+) pulmonic valve insufficiency. Right ventricular systolic pressure estimated to be 43 mmHg. There is evidence of diastolic dysfunction. Ordering Physician: Anurag Conley Referring Physician: Anurag Conley Performed By: Isai Jamison RCS
== END ==
PROVIDERS: PCP Family Medicine; Referring Provider Family Medicine; Visit Provider Family Medicine
DX: R06.00 Dyspnea, unspecified (principal)
CPT/HCPCS: 93306; Q9957; A4216; C8929

== ENCOUNTER → 2020-09-07 09:15 | Outpatient (CLI) | payer MEDICARE, SELFPAY ==
--- NOTE | 2020-09-07 12:01 | PFT ---
INTRODUCTION: The patient is a 69-year-old male that presents for pulmonary function studies secondary to a diagnosis of dyspnea on exertion. Respiratory therapy reports good patient effort. Bronchodilators were used during testing. INTERPRETATION: Forced expiration spirometry demonstrates no evidence of a large airways obstructive ventilatory defect. There was no significant response to aerosolized bronchodilators. Spirograms are of good quality and plateau normally. Body plethysmography was performed and reveals lung volumes to be within normal limits. Diffusing capacity by single breath CO is also within normal limits. IMPRESSION: Grossly normal pulmonary function studies with little interval change since PFTs were last completed in November 2018.
== END ==
PROVIDERS: PCP Family Medicine; Referring Provider Family Medicine; Visit Provider Family Medicine
DX: R06.00 Dyspnea, unspecified (principal)
CPT/HCPCS: 94060; 94726; 94729

== ENCOUNTER → 2020-11-03 06:49 | Outpatient (CLI) | payer MEDICARE, SELFPAY ==
[2020-09-17 15:52] VITALS: BMI 42.4
--- NOTE | 2020-11-03 08:41 | STRESSREP ---
Stress Test Report Date: 11-03-2020 Procedure: Pharmacologic stress nuclear imaging study Indications: Shortness of breath/dyspnea on exertion; CAD; PCI Consent: Per the patient Procedure: The patient underwent pharmacologic (Regadenoson 0.4mg ) evaluation with a peak heart rate of 86 beats per minute (57%predicted maximal heart rate) and a peak blood pressure of 190/98 mmHg. The baseline ECG demonstrated normal sinus rhythm. The peak pharmacologic ECG demonstrated no obvious ECG changes. There were no cardiac dysrhythmias pretest, during pharmacologic infusion, or recovery. There was no complaint of chest discomfort during pharmacologic infusion or recovery. The examination was discontinued secondary to completion of protocol. Impression: 1. Pharmacologic (Regadenoson) evaluation 2. Peak pharmacologic ECG with no obvious ECG changes. 3. There were no cardiac dysrhythmias pretest, during pharmacologic infusion, or recovery. 4. Nuclear images pending Myocardial perfusion imaging study: Technique: The patient was injected with 14.5 millicuries of technetium 99m Cardiolite and subsequently rest SPECT Cardiolite nuclear imaging was obtained in the horizontal long, vertical long, and short axis views. The patient underwent pharmacologic (Regadenoson) evaluation with a peak heart rate of 86 beats per minute (57% percent predicted maximal heart rate) and a peak blood pressure of 190/98 mmHg. The patient was injected with 44.4 millicuries of technetium 99m Cardiolite and subsequently stress SPECT Cardiolite nuclear imaging was obtained in the horizontal long, vertical long, and short axis views. A gated Cardiolite study at peak stress was obtained. Interpretation: Rest and stress SPECT Cardiolite nuclear imaging status post realignment, normalization, and attenuation correction demonstrate an area of diminished absence of myocardial perfusion/tracer uptake in portions of the basal to mid lateral segments as well as a small area of soft diminished tracer uptake in portions of the septal apical segments without significant change between rest and stress. There are similar type findings on the resting and stress polar map images.. There is end systolic thickening and brightening. The gated Cardiolite study demonstrates myocardial thickening and inward wall motion. The reported LVEF is 51%. Impression: 1. Rest and stress SPECT her nuclear imaging demonstrate myocardial perfusion changes potentially compatible with an area of previous myocardial injury/infarction involving portions of the basal towards mid lateral segments as well as an element of soft tissue attenuation/artifact with no myocardial perfusion changes considered diagnostic for associated stress-induced myocardial ischemia. 2. The gated Cardiolite study reports an LVEF of 51%. This note was generated with [employer] Rock[employer] software. It may contain incorrect words, spelling, and punctuation that were not noted in checking the note before signing.
== END ==
PROVIDERS: PCP Family Medicine; Referring Provider Internal Medicine Cardiovascular Disease; Visit Provider Internal Medicine Cardiovascular Disease
DX: Z95.5 Presence of coronary angioplasty implant and graft (principal)
CPT/HCPCS: 78452; 93017; A9500; A4216; J2785

== ENCOUNTER 2020-11-19 13:47 | Outpatient (RCR) | payer MEDICARE, SELFPAY ==
[2020-09-17 15:52] VITALS: BMI 42.4
[2020-11-19] MEDS: COVID-19 VACC, MRNA(PFIZER)/PF 30 MCG/0.3 ML SYRINGE IM (09:17)
[2020-12-10] MEDS: COVID-19 VACC, MRNA(PFIZER)/PF 30 MCG/0.3 ML SYRINGE IM (09:09)
== END 2021-02-16 23:59 ==
LOC: IMMUN 13:47
PROVIDERS: PCP Family Medicine; Visit Provider Family Medicine
DX: Z23 Encounter for immunization (principal)
CPT/HCPCS: 0001A; 0002A; 91300

== ENCOUNTER → 2021-02-03 09:32 | Outpatient (CLI) | payer MEDICARE, SELFPAY ==
[2020-09-17 15:52] VITALS: BMI 42.4
[2021-02-03 12:04] LABS: Absolute Lymphocyte Count 1.13 X10^3/uL (0.83-4.51); Absolute Neutrophil Count 5.4 X10^3/uL (2.0-7.7); Basophil# 0.04 X10^3/uL; Basophil% 0.5 % (0-1); Eosinophil# 0.33 X10^3/uL; Eosinophils% 4.3 % (0-5); Hematocrit 41.5 % (40-54); Hemoglobin 14.5 g/dL (13.0-16.5); Lymphocyte # 1.13 X10^3/ul (0.83-4.51); Lymphocyte % 14.8 % (19-41); Mean Corp Hgb Conc 34.9 g/dL (32-36); Mean Corpuscular Hgb 32.1 pg (27.0-32.0); Mean Corpuscular Volume 91.8 fL (80-94); Mean Platelet Vol. 11.9 fl (6.2-12.0); Monocyte# 0.63 X10^3/uL; Monocyte% 8.3 % (0-10); NRBC Flagged by Analyzer 0 % (0-5); Neutrophil # 5.44 X10^3/uL (2.7-7.7); Neutrophil % 71.6 % (47-70); Platelet Count 156 K/mm3 (150-450); RBC Distribution Width CV 13.1 % (11.6-14.6); RBC Distribution Width SD 44.3 fl (35.1-43.9); Red Blood Count 4.52 M/mm3 (4.6-6.2); White Blood Count 7.6 K/mm3 (4.4-11.0)
[2021-02-03 12:27] LABS: ALB/GLOB Ratio 1.1 RATIO (0.9-2.4); AST(SGOT) 19 U/L (15-37); Alanine Aminotransfer ALT/SGPT 13 U/L (16-61); Albumin, Serum 3.7 g/dL (3.2-5.0); Alkaline Phosphatase 71 U/L (45-117); Anion Gap 1 (5-15); BUN 17 mg/dL (7-18); BUN/Creat Ratio 20.8 RATIO (10-20); Calcium,Total 9.1 mg/dL (8.5-10.1); Chloride 110 mmol/L (98-107); Cholesterol 120 mg/dL (200); Creatinine, Serum 0.82 mg/dL (0.70-1.30); EST Glomerular Filtration Rate 99 mL/min (>60); Est Glom Filt Rate - Afr Amer 119 mL/min (>60); Globulin 3.3 g/dL (2.2-4.2); Glucose 106 mg/dL (74-106); High Density Lipoprotein 55 mg/dL; Potassium 3.9 mmol/L (3.5-5.1); Sodium Level 140 mmol/L (136-145); Triglycerides 89 mg/dL; Very Low Density Lipoprotein 18 mg/dL (5-40)
[2021-02-04 16:54] LABS: Hemoglobin A1c 5.2 % (3.8-5.6)
== END ==
PROVIDERS: PCP Family Medicine; Referring Provider Family Medicine; Visit Provider Family Medicine
DX: I25.10 Atherosclerotic heart disease of native coronary artery without angina pectoris (principal); R73.03 Prediabetes
CPT/HCPCS: 36415; 80053; 80061; 83036; 85025

== ENCOUNTER → 2021-03-27 09:30 | Outpatient (CLI) | payer MEDICARE, SELFPAY ==
[2021-03-17 14:44] VITALS: BMI 40.1
[2021-03-27 10:58] LABS: Albumin, Serum 3.9 g/dL (3.2-5.0)
== END ==
PROVIDERS: PCP Family Medicine; Referring Provider Specialist; Visit Provider Specialist
DX: Z01.812 Encounter for preprocedural laboratory examination (principal)
CPT/HCPCS: 36415; 82040

== ENCOUNTER → 2021-05-25 11:16 | Outpatient (CLI) | payer MEDICARE, SELFPAY ==
[2021-05-25 12:52] LABS: PSA,Total - Annual Screen 3.12 ng/mL (0.00-4.00)
== END ==
PROVIDERS: PCP Family Medicine; Referring Provider Family Medicine; Visit Provider Family Medicine
DX: Z12.5 Encounter for screening for malignant neoplasm of prostate (principal)
CPT/HCPCS: 36415; 84153; G0103

== ENCOUNTER 2021-11-22 11:55 | Outpatient (CLI) | payer MEDICARE, SELFPAY ==
[2021-11-22 15:42] LABS: Absolute Lymphocyte Count 1.61 X10^3/uL (0.83-4.51); Absolute Neutrophil Count 4.7 X10^3/uL (2.0-7.7); Basophil# 0.09 X10^3/uL; Basophil% 1.2 % (0-1); Eosinophil# 0.19 X10^3/uL; Eosinophils% 2.6 % (0-5); Hematocrit 42.9 % (40-54); Hemoglobin 14.4 g/dL (13.0-16.5); Lymphocyte # 1.61 X10^3/ul (0.83-4.51); Lymphocyte % 22.1 % (19-41); Mean Corp Hgb Conc 33.6 g/dL (32-36); Mean Corpuscular Hgb 32.3 pg (27.0-32.0); Mean Corpuscular Volume 96.2 fL (80-94); Mean Platelet Vol. 10.8 fl (6.2-12.0); Monocyte# 0.68 X10^3/uL; Monocyte% 9.3 % (0-10); NRBC Flagged by Analyzer 0 % (0-5); Neutrophil # 4.68 X10^3/uL (2.7-7.7); Neutrophil % 64.1 % (47-70); Platelet Count 231 K/mm3 (150-450); RBC Distribution Width CV 13.2 % (11.6-14.6); Red Blood Count 4.46 M/mm3 (4.6-6.2); White Blood Count 7.3 K/mm3 (4.4-11.0)
[2021-11-22 16:18] LABS: ALB/GLOB Ratio 1.1 RATIO (0.9-2.4); AST(SGOT) 22 U/L (15-37); Alanine Aminotransfer ALT/SGPT 19 U/L (16-61); Albumin, Serum 3.9 g/dL (3.2-5.0); Alkaline Phosphatase 67 U/L (45-117); Anion Gap 4 (5-15); BUN 20 mg/dL (7-18); BUN/Creat Ratio 24.7 RATIO (10-20); Calcium,Total 8.8 mg/dL (8.5-10.1); Chloride 107 mmol/L (98-107); Cholesterol 119 mg/dL (200); Creatinine, Serum 0.81 mg/dL (0.70-1.30); EST Glomerular Filtration Rate 100 mL/min (>60); Est Glom Filt Rate - Afr Amer 121 mL/min (>60); Globulin 3.6 g/dL (2.2-4.2); Glucose 91 mg/dL (74-106); High Density Lipoprotein 47 mg/dL; Potassium 4.4 mmol/L (3.5-5.1); Protein, Total 7.5 g/dL (6.4-8.2); Sodium Level 139 mmol/L (136-145); Triglycerides 108 mg/dL; Very Low Density Lipoprotein 22 mg/dL (5-40)
== END 2021-11-22 23:59 | disposition home or self-care (01) ==
LOC: MFPLAB 11:57
PROVIDERS: PCP Family Medicine; Visit Provider Family Medicine
DX: I25.10 Atherosclerotic heart disease of native coronary artery without angina pectoris (principal)
CPT/HCPCS: 36415; 80053; 80061; 85025

== ENCOUNTER 2021-11-25 12:52 | Outpatient (CLI) | payer MEDICARE, SELFPAY ==
--- NOTE | 2021-11-25 12:57 | US_ITS ---
STUDY: RENAL ULTRASOUND - COMPLETE REASON FOR EXAM: Male, 71 years old. HYPERTENSION TECHNIQUE: Ultrasound evaluation of the kidneys was performed with real-time and static amador-scale imaging. COMPARISON: None. FINDINGS: RIGHT KIDNEY: Normal location of the right kidney, which is normal in size. The right kidney measures 13.3 x 5.3 x 5.8 cm. There is a normal cortex of the right kidney. The renal cortex measures 1.9 cm. There is no right renal mass or cyst. There are no right renal calculi. There is no right hydronephrosis. DISTAL RIGHT URETER: There is non-visualization of the distal right ureter. There is no demonstrated right ureterovesical junction calculus. There is a visualized right ureteral jet. LEFT KIDNEY: Normal location of the left kidney, which is normal in size. The left kidney measures 12.4 x 4.8 x 6.1 cm. There is a normal cortex of the left kidney. The renal cortex measures 1.8 cm. Multiple simple cysts, largest measures 1.5 cm, there is a nonobstructing 1.3 cm stone. There is no left hydronephrosis. DISTAL LEFT URETER: There is non-visualization of the distal left ureter. There is no demonstrated left ureterovesical junction calculus. There is a visualized left ureteral jet. AORTA: There is no elongation or tortuosity of the abdominal aorta. I.V.C.: The IVC is patent. BLADDER: The bladder is incompletely distended US/Kidney and Bladder IMPRESSION: No obstructive uropathy or suspicious solid renal lesion Simple left renal cysts, no specific follow-up Nonobstructing left nephrolithiasis Electronically Signed: Bakari Jurado MD at 13:39 EDT ,
== END 2021-11-25 23:59 | disposition home or self-care (01) ==
LOC: US 12:53
PROVIDERS: PCP Family Medicine; Referring Provider Family Medicine; Visit Provider Family Medicine
DX: I10 Essential (primary) hypertension (principal)
CPT/HCPCS: 76770

== ENCOUNTER → 2022-02-15 | Outpatient (CLI) | payer MEDICARE, SELFPAY ==
--- NOTE | 2022-02-15 11:21 | US_ITS ---
STUDY: ULTRASOUND - URINARY BLADDER REASON FOR EXAM: Male, 71 years old. INCOMPLETE BLADDER EMPTYING TECHNIQUE: Ultrasound evaluation of the urinary bladder was performed with real-time and static encarnacion-scale imaging. COMPARISON: None. FINDINGS: There is no right UVJ calculus. There is a visualized right ureteral jet. There is no left UVJ calculus. There is a visualized left ureteral jet. The distended volume of the urinary bladder is 314 ml. The empty volume of the urinary bladder is 23 ml. The bladder wall is within normal limits. The bladder wall measures 4 mm. There is no demonstrated bladder wall mass lesion. There are no demonstrated bladder calculi. US/Post Void Residual Bladder IMPRESSION: Small post void residual. Electronically Signed: Enmanuel Ulloa MD at 15:36 EDT ,
== END | disposition home or self-care (01) ==
PROVIDERS: PCP Family Medicine; Referring Provider Family Medicine; Visit Provider Family Medicine
DX: R33.9 Retention of urine, unspecified (principal)
CPT/HCPCS: 51798

== ENCOUNTER → 2022-05-31 | Outpatient (CLI) | payer MEDICARE, SELFPAY ==
[2022-05-31 17:45] LABS: Absolute Lymphocyte Count 1.46 X10^3/uL (0.83-4.51); Basophil# 0.05 X10^3/uL; Basophil% 0.8 % (0-1); Eosinophil# 0.28 X10^3/uL; Eosinophils% 4.4 % (0-5); Hematocrit 40.1 % (40-54); Hemoglobin 13.7 g/dL (13.0-16.5); Lymphocyte # 1.46 X10^3/ul (0.83-4.51); Lymphocyte % 22.7 % (19-41); Mean Corp Hgb Conc 34.2 g/dL (32-36); Mean Corpuscular Hgb 31.9 pg (27.0-32.0); Mean Corpuscular Volume 93.3 fL (80-94); Mean Platelet Vol. 11.4 fl (6.2-12.0); Monocyte# 0.66 X10^3/uL; Monocyte% 10.3 % (0-10); NRBC Flagged by Analyzer 0 % (0-5); Neutrophil # 3.95 X10^3/uL (2.7-7.7); Neutrophil % 61.5 % (47-70); Platelet Count 175 K/mm3 (150-450); RBC Distribution Width CV 13.1 % (11.6-14.6); RBC Distribution Width SD 44.7 fl (35.1-43.9); White Blood Count 6.4 K/mm3 (4.4-11.0)
[2022-05-31 18:31] LABS: ALB/GLOB Ratio 1.1 RATIO (0.9-2.4); AST(SGOT) 19 U/L (15-37); Alanine Aminotransfer ALT/SGPT 13 U/L (16-61); Albumin, Serum 3.6 g/dL (3.2-5.0); Alkaline Phosphatase 67 U/L (45-117); Anion Gap 7 (5-15); BUN 18 mg/dL (7-18); BUN/Creat Ratio 21.2 RATIO (10-20); Chloride 110 mmol/L (98-107); Cholesterol 101 mg/dL (200); Creatinine, Serum 0.85 mg/dL (0.70-1.30); EST Glomerular Filtration Rate 94 mL/min (>60); Est Glom Filt Rate - Afr Amer 114 mL/min (>60); Globulin 3.4 g/dL (2.2-4.2); Glucose 116 mg/dL (74-106); High Density Lipoprotein 43 mg/dL; Potassium 4.1 mmol/L (3.5-5.1); Sodium Level 143 mmol/L (136-145); Triglycerides 115 mg/dL; Very Low Density Lipoprotein 23 mg/dL (5-40)
[2022-06-01 14:45] LABS: Hemoglobin A1c 5.4 % (3.8-5.6)
== END | disposition home or self-care (01) ==
LOC: MFPLAB 14:13
PROVIDERS: PCP Family Medicine; Referring Provider Family Medicine; Visit Provider Family Medicine
DX: R73.09 Other abnormal glucose (principal); I25.10 Atherosclerotic heart disease of native coronary artery without angina pectoris
CPT/HCPCS: 36415; 80053; 80061; 83036; 85025

== ENCOUNTER → 2022-09-27 | Outpatient (CLI) | payer MEDICARE, SELFPAY ==
[2022-09-27 15:30] LABS: Absolute Lymphocyte Count 1.32 X10^3/uL (0.83-4.51); Absolute Neutrophil Count 5.1 X10^3/uL (2.0-7.7); Basophil# 0.06 X10^3/uL; Basophil% 0.8 % (0-1); Eosinophil# 0.29 X10^3/uL; Eosinophils% 3.8 % (0-5); Hematocrit 41.1 % (40-54); Hemoglobin 14.3 g/dL (13.0-16.5); Lymphocyte # 1.32 X10^3/ul (0.83-4.51); Lymphocyte % 17.2 % (19-41); Mean Corp Hgb Conc 34.8 g/dL (32-36); Mean Corpuscular Hgb 31.8 pg (27.0-32.0); Mean Corpuscular Volume 91.5 fL (80-94); Mean Platelet Vol. 11.4 fl (6.2-12.0); Monocyte# 0.84 X10^3/uL; NRBC Flagged by Analyzer 0 % (0-5); Neutrophil # 5.14 X10^3/uL (2.7-7.7); Neutrophil % 66.9 % (47-70); Platelet Count 180 K/mm3 (150-450); RBC Distribution Width CV 13.2 % (11.6-14.6); RBC Distribution Width SD 45.2 fl (35.1-43.9); Red Blood Count 4.49 M/mm3 (4.6-6.2); White Blood Count 7.7 K/mm3 (4.4-11.0)
[2022-09-27 16:08] LABS: ALB/GLOB Ratio 1.3 RATIO (0.9-2.4); AST(SGOT) 20 U/L (15-37); Alanine Aminotransfer ALT/SGPT 15 U/L (16-61); Albumin, Serum 3.9 g/dL (3.2-5.0); Alkaline Phosphatase 67 U/L (45-117); Anion Gap 5 (5-15); BUN 21 mg/dL (7-18); BUN/Creat Ratio 22.3 RATIO (10-20); Calcium,Total 8.9 mg/dL (8.5-10.1); Chloride 112 mmol/L (98-107); Cholesterol 106 mg/dL (200); Creatinine, Serum 0.94 mg/dL (0.70-1.30); EST Glomerular Filtration Rate 84 mL/min (>60); Est Glom Filt Rate - Afr Amer 101 mL/min (>60); Glucose 96 mg/dL (74-106); High Density Lipoprotein 45 mg/dL; Potassium 4.1 mmol/L (3.5-5.1); Protein, Total 6.9 g/dL (6.4-8.2); Sodium Level 142 mmol/L (136-145); Triglycerides 92 mg/dL; Very Low Density Lipoprotein 18 mg/dL (5-40)
== END | disposition home or self-care (01) ==
LOC: MFPLAB 13:52
PROVIDERS: PCP Family Medicine; Visit Provider Family Medicine
DX: I25.10 Atherosclerotic heart disease of native coronary artery without angina pectoris (principal)
CPT/HCPCS: 36415; 80053; 80061; 85025

== ENCOUNTER → 2022-12-27 | Outpatient (CLI) | payer MEDICARE, SELFPAY ==
--- NOTE | 2022-12-27 17:13 | RAD_ITS ---
STUDY: X-RAY - BILATERAL RIBS REASON FOR EXAM: Male, 72 years old. Bilateral rib pain for 3 months. TECHNIQUE: 8 view(s) of the ribs. COMPARISON: Chest, November 27, 2018. FINDINGS: Normal visualized ribs without a demonstrated fracture. The visualized lungs are well expanded. Again seen are calcified granulomata in the retrocardiac left lower lobe. No acute infiltrate or mass. Normal heart, mediastinum and pulmonary hien. RAD/Ribs Bilat 3V No CXR IMPRESSION: Normal x-ray examination of the bilateral ribs. Electronically Signed: Wade Killian DO at 22:56 EDT ,
== END | disposition home or self-care (01) ==
LOC: MTRAD 17:11
PROVIDERS: PCP Family Medicine; Referring Provider Family Medicine; Visit Provider Family Medicine
DX: R07.81 Pleurodynia (principal)
CPT/HCPCS: 71110

== ENCOUNTER → 2022-12-28 | Outpatient (CLI) | payer MEDICARE, SELFPAY ==
--- NOTE | 2022-12-28 09:31 | CT_ITS ---
STUDY: CT ABDOMEN AND PELVIS WITH AND WITHOUT CONTRAST REASON FOR EXAM: Male, 72 years old. HEMATURIA RADIATION DOSAGE (If Supplied By Facility): CTDIvol = ( 28.64 ) mGy, DLP = ( 4429.20 ) mGycm TECHNIQUE: Transaxial images were obtained from the dome of the diaphragm to the symphysis pubis without oral contrast. IV 100mL Isovue-300 was administered. Sagittal and coronal images were reconstructed. Individualized dose optimization techniques were used for this CT. COMPARISON: None. FINDINGS: Calcified granuloma in the medial left lower lobe. Minimal increased markings in the posterior medial segment of the right lower lobe suggestive of either linear atelectasis and/or scarring. The visualized portions of the heart are within normal limits. There is decreased attenuation of the liver consistent with steatosis. Normal gallbladder and extrahepatic biliary system. There are multiple benign calcified granulomata of the spleen. There is diffuse atrophy of the pancreas. Normal bilateral adrenal glands. Subcentimeters cysts are seen in both kidneys. The largest cyst in the medial upper pole of the left kidney measures 1.4 cm. There is a small hiatal hernia. There is a 2 cm diverticulum in the second portion of the duodenum. Normal small intestine. Normal colon. The appendix is visualized and appears normal. There is scattered atherosclerotic calcification of the abdominal aorta, without a demonstrated aneurysm. Normal inferior vena cava. Mild degree of increased markings in the retroperitoneal fat in the lower left abdomen. This is a nonspecific finding. The bladder is contracted. Diffuse bladder wall thickening. There is enlargement of the prostate gland. The prostate measures 4.4 cm x 4.8 cm. Normal abdominal wall. There are diffuse degenerative changes of the visualized lumbar spine. CT/CT Abd/Pelvis W/WO Contrast IMPRESSION: Contracted urinary bladder with diffuse irregular bladder wall thickening. Mild increased markings in the retroperitoneal fat in the left lower abdomen and upper pelvis. This is a nonspecific finding and may be related to the diffuse bilateral wall thickening. Multiple small bilateral renal cysts slightly more prominent on the left side. Splenic granulomas. Fatty infiltration of the liver. Electronically Signed: Enmanuel Ulloa MD at 10:26 EDT ,
[2022-12-28 10:06] LABS: CREATININE FINGERSTICK < 0.9 mg/dL (0.70-1.30); EGFR FINGERSTICK > 60.0000 mL/min (>60)
[2022-12-28 10:22] LABS: Absolute Lymphocyte Count 1.44 X10^3/uL (0.83-4.51); Absolute Neutrophil Count 7.2 X10^3/uL (2.0-7.7); Basophil# 0.07 X10^3/uL; Basophil% 0.7 % (0-1); Hematocrit 42.1 % (40-54); Hemoglobin 14.4 g/dL (13.0-16.5); Lymphocyte # 1.44 X10^3/ul (0.83-4.51); Lymphocyte % 14.3 % (19-41); Mean Corp Hgb Conc 34.2 g/dL (32-36); Mean Corpuscular Hgb 31.8 pg (27.0-32.0); Mean Corpuscular Volume 92.9 fL (80-94); Mean Platelet Vol. 11.7 fl (6.2-12.0); Monocyte# 0.99 X10^3/uL; Monocyte% 9.8 % (0-10); NRBC Flagged by Analyzer 0 % (0-5); Neutrophil # 7.21 X10^3/uL (2.7-7.7); Neutrophil % 71.6 % (47-70); Platelet Count 161 K/mm3 (150-450); RBC Distribution Width CV 13.6 % (11.6-14.6); RBC Distribution Width SD 46.4 fl (35.1-43.9); Red Blood Count 4.53 M/mm3 (4.6-6.2); White Blood Count 10.1 K/mm3 (4.4-11.0)
[2022-12-28 10:27] LABS: Anion Gap 4 (5-15); BUN 20 mg/dL (7-18); BUN/Creat Ratio 21.8 RATIO (10-20); Calcium,Total 9.1 mg/dL (8.5-10.1); Chloride 110 mmol/L (98-107); Creatinine, Serum 0.92 mg/dL (0.70-1.30); EST Glomerular Filtration Rate 86 mL/min (>60); Est Glom Filt Rate - Afr Amer 104 mL/min (>60); Glucose 107 mg/dL (74-106); Sodium Level 140 mmol/L (136-145)
[2022-12-28 11:14] LABS: Hemoglobin A1c 5.5 % (3.8-5.6)
== END | disposition home or self-care (01) ==
PROVIDERS: PCP Family Medicine; Visit Provider Family Medicine
DX: R73.09 Other abnormal glucose (principal); R31.9 Hematuria, unspecified
CPT/HCPCS: 74178; 87077; 87086; 87088; 87186; Q9967

== ENCOUNTER → 2023-01-05 | Outpatient (CLI) | payer MEDICARE, SELFPAY ==
--- NOTE | 2023-01-05 08:21 | US_ITS ---
STUDY: ABDOMINAL ULTRASOUND - RIGHT UPPER QUADRANT REASON FOR VISIT: Male, 72 years old RUQ pain TECHNIQUE: Ultrasound evaluation of the right upper quadrant was performed with real-time and static encarnacion-scale imaging. TECHNICAL QUALITY: Limited. Examination limited by bowel gas. COMPARISON: Comparison is made to prior CT scan of the abdomen and pelvis dated December 28, 2022. FINDINGS: Liver: The liver measures 15.1 cm. There is increased echogenicity consistent with fatty infiltration. The bile ducts are within normal limits. There is hepatic color flow. The direction of portal flow is hepatopetal. There is no demonstrated mass lesion. Gallbladder: Normal distended gallbladder. The gallbladder wall is mildly thickened and measures 3.4 mm. There is a negative sonographic Alfaro''s sign. There is no pericholecystic fluid. There are no gallstones. Common Bile Duct (C.B.D.): The common bile duct measures 3.6 mm. Pancreas: There is nonvisualization of the pancreas due to overlying bowel gas. Right Kidney: Normal size of the right kidney. The right kidney measures 12.1 cm x 4.9 cm x 5.2 cm. Normal renal cortex. The right cortex measures 1.6 cm. There is no demonstrated renal mass or cyst. There is no right hydronephrosis. US/Abdomen Limited IMPRESSION: Fatty infiltration of the liver. Electronically Signed: Enmanuel Ulloa MD at 15:34 EDT ,
== END | disposition home or self-care (01) ==
PROVIDERS: PCP Family Medicine; Referring Provider Family Medicine; Visit Provider Family Medicine
DX: R10.11 Right upper quadrant pain (principal)
CPT/HCPCS: 76705

== ENCOUNTER → 2023-01-31 | Outpatient (CLI) | payer MEDICARE, SELFPAY ==
--- NOTE | 2023-01-31 09:44 | NM_ITS ---
CLINICAL: 72-year-old male with history of right upper quadrant abdominal pain. RADIONUCLIDE HEPATOBILIARY SCINTIGRAPHY COMPARISON: Abdominal ultrasound report 01/05/2023 FINDINGS: Following the intravenous administration of 5.2 mCi of 99m Tc Mebrofenin, hepatobiliary images reveal: 1. Relatively prompt and homogeneous radiopharmaceutical concentration is noted by a normal sized liver. No parenchymal defects are identified. 2. Gallbladder activity is identified at 15 minutes post radiopharmaceutical administration. 3. Small intestinal tract is observed at 30 minutes following tracer injection. 4. Washout of the radiopharmaceutical by the hepatic parenchyma appears qualitatively normal. 5. There is scintigraphic evidence of pre-CCK duodenal gastric reflux initiating on the 45 minute acquisition.. Cholecystokinin (0.02 ug/kg) was administered intravenously over a 3-minute period. The post CCK gallbladder ejection fraction calculated at 19 minutes following Cholecystokinin administration was noted to be 88 % (normal greater than 35%). During 30 minutes of post CCK imaging, there is scintigraphic evidence of refilling of the gallbladder. There is scintigraphic evidence of continued post CCK duodenal gastric reflux. WV/Hepatobilliary Img w/Pharm Int IMPRESSION: 1. A gallbladder ejection fraction calculated to be greater than 35% following the administration of Cholecystokinin makes the probability of functional hepatobiliary disease (gallbladder dyskinesia) and/or organic hepatobiliary disease (chronic acalculous cholecystitis and/or cystic duct syndrome) to be low. (Paulina Rodriguez et al, Journal of Nuclear Medicine 32:1695, 1990). 2. There is scintigraphic evidence of pre-post CCK duodenal-gastric reflux. (Ericka et al, Nucl Med Henrietta Lala Press pg. 35, 1980). 3. A normal gallbladder ejection fraction with refilling of the gallbladder following CCK administration may represent the presence of Sphincter of Oddi dysfunction. Correlation with Sphincter of Oddi manometry may be of benefit. (Roderick, J Nucl Med 38:1824, 1997). Electronically Signed: Lei Crawford, at 22:16 EDT ,
== END | disposition home or self-care (01) ==
PROVIDERS: PCP Family Medicine; Referring Provider Family Medicine; Visit Provider Family Medicine
DX: K82.8 Other specified diseases of gallbladder (principal)
CPT/HCPCS: 78227; A9537; J2805

== ENCOUNTER → 2023-03-22 | Outpatient (CLI) | payer MEDICARE, SELFPAY ==
[2023-03-22 18:04] LABS: PSA,Total - Annual Screen 4.24 ng/mL (0.00-4.00)
== END | disposition home or self-care (01) ==
LOC: MFPLAB 14:57
PROVIDERS: PCP Family Medicine; Visit Provider Family Medicine
DX: Z12.5 Encounter for screening for malignant neoplasm of prostate (principal); Z23 Encounter for immunization
CPT/HCPCS: 36415; 84153; G0103

== ENCOUNTER 2023-06-20 07:52 | Day surgery (SDC) | payer MEDICARE, SELFPAY ==
[2023-06-20] VITALS (7 sets, daily range): BP systolic 101–132; BP diastolic 58–77; PULSE 55–66; RESP 16; TEMP 36.5–37.1; O2SAT 92–98; BMI 39.2
[2023-06-20] MEDS: Lactated Ringers 1,000 ML 15 ML IV (08:17)
--- NOTE | 2023-06-20 08:40 | HP.PCM_ITS ---
HPI - General HPI Narrative THIERRY MARTIN, is a 72 M who presents for surveillance colonoscopy. Patient has last colonoscopy 3 years ago. 4 polyps were removed. He was recommended to repeat in 3 years. He denies any abdominal pain or blood in the stool. He is not on blood thinners. 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 INGRIS (obstructive sleep apnea) Personal history of colonic polyps Preoperative cardiovascular examination Presence of stent in coronary artery (~2012) Pure hypercholesterolemia Shortness of breath on exertion Sleep apnea Wears glasses Wears hearing aid Wears partial dentures Wheeze Home Medications aspirin 81 mg tablet,delayed release 81 mg PO QDAY 09/08/17 [History Last Taken Unknown] nitroglycerin 0.4 mg sublingual tablet (Nitrostat) 0.4 mg sublingual Q5-15M PRN chest pain 09/08/17 [History Last Taken Unknown] albuterol sulfate 90 mcg/actuation aerosol inhaler (ProAir HFA) 2 puff inhalation Q6H PRN shortness of breath or wheezing #18 grams 12/18/19 [Rx Last Taken Unknown] atorvastatin 20 mg tablet 20 mg PO QHS #90 tabs 07/20/22 [Rx Last Taken Unknown] lisinopril 10 mg tablet 10 mg PO BID #180 tabs 07/20/22 [Rx Last Taken Unknown] metoprolol tartrate 50 mg tablet 25 mg PO BID 07/20/22 [History Last Taken Unknown] amlodipine 10 mg tablet 10 mg PO DAILY 06/14/23 [History Last Taken Unknown] tamsulosin 0.4 mg capsule 0.4 mg PO Q24H 06/14/23 [History Last Taken Unknown] Allergy/AdvReac Type Severity Reaction Status Date / Time Sulfa (Sulfonamide Allergy Unknown Verified 06/14/23 11:25 Antibiotics) Family History Father Myocardial infarction, Onset Age: 73 CAD (coronary artery disease) Surgical History (Updated 06/14/23 @ 11:35 by Ashley Raya) H/O shoulder surgery History of cardiac catheterization History of colonoscopy with polypectomy History of knee replacement procedure of right knee Hx of bilateral cataract extraction Presence of coronary angioplasty implant and graft Social History Smoking Status: Never smoker second hand exposure: Yes alcohol intake: current alcohol intake frequency: a few times a month substance use type: does not use caffeine: Yes Type: carbonated beverages Past Medical/Surgical History Planned Operation Planned Operative Procedure/s: CSCOPE S.O.S: No Previous Hospitalizations/Surgeries HX Hospitalizations: No HX of Surgeries: ROTATOR CUFF SURGERY hx crushed pelvis as teen heart stents colonoscopy colonoscopy/polypectomy Any Problems With Anesthesia: No You/Your Family Experience Fever (Hyperthermia) With Anes: No Cholinesterase deficiency: No Cardiovascular Hx Chest Pain within Last 2 months: No Hx of Irregular Heartbeat and/or Afib: No (Dr Sparks/ [facility]) Hx Heart Attack: Yes (2013) Hx Congestive Heart Failure: No Hx Rheumatic Fever: No Hx Hypertension: Yes (CONTROLLED WITH MED) Hx Internal Defibrillator: No Hx Pacemaker: No Hx Cardiac Catheterization: Yes (2013/) What facility was last heart cath performed: unknown Date of last Heart Cath: unknown Hx Cardiac Surgery/Stents/Etc.: Yes (2013 stent insertion) Hx Stress Test: Yes (2013 [facility]) Hx Pain in Legs when Walking/Leg Cramps: No Respiratory Chronic Cough: No HX of Shortness of Breath: Yes (states sob with 2 flights stairs) Hoarseness: No Hx Chronic Obstructive Pulmonary Disease (COPD): No Hx Asthma: Yes (inhaler as needed) Hx Emphysema: No Hx Sleep Apnea: Yes CPAP: Yes BIPAP: No Hx Respiratory Tract Infection/Cold (presently): No Result (for STOP score): Positive Hx Smoking: No Smoking Status: Never smoker Gastrointestinal Hx Gastroesophageal Reflux: Yes Controlled With Meds: Yes (pepcid) Hx Gastrointestinal Disorders: Yes (polyp) Hx Gastrointestinal Bleed: No Hx Ulcer: No Hx Hiatal Hernia: No Difficulty Chewing/Swallowing: Yes (food sticks in throat) Special diet followed at home: No Hx Unplanned Weight Loss of 20#: No HX Unplanned Weight Gain of 20#: No Neurological Hx Seizures: No HX Syncope/Blackout Spells/Unconsciousness: No Hx Transient Ischemic Attacks (TIA): No Hx Multiple Sclerosis: No Hx Parkinson's Disease: No Hx Head/Neck Injury: No Hx Headaches: No Hx Back Injury/Pain: No Recent Onset of Speech Difficulty: No Restless Legs: No Does patient have nerve stimulator: No Blood Disorder Hx Leukemia: No Bleeding Tendencies: No (aspirin.) Hx Deep Vein Thrombosis: No Hx High Cholesterol: Yes (on med) Blood Transmitted Disease: No Hx Hepatitis: No Hx Cirrhosis: No Hx Anemia: No Hx Blood Disorders: No Genitourinary Hx Renal Disease: No Hx Dialysis: No Musculoskeletal Hx Arthritis: No Hx Rheumatoid Arthritis: No Hx Gout: No Recent Onset of an Orthopedic Problem: No Endocrine Hx Diabetes: No Insulin: No Thyroid Disease: No Hx Steroid Therapy: No Psycho/Social Hx Substance Use: No Hx Alcohol Use: No Hx Anxiety: No Hx Depression: No Mental Illness: No Hx Dementia: No Miscellaneous Hx Cancer: No Recent Exposure to Contagious Disease: No Hx of C-Diff: No Any Loose Teeth: No (false tooth) Allergies Sulfa (Sulfonamide Antibiotics) Allergy (Verified 06/14/23 11:25) Unknown Childhood Discharge Is Pt Admitted From a Care Home, or a Penitentiary: No After D/C, Where Do you Plan to Go: Return Home Vital Signs Vital Signs Vital Signs: 06/20/23 08:24 06/20/23 08:24 Temperature 98.8 F Temperature Source Temporal Pulse Rate 55 L Respiratory Rate 16 Respiratory Pattern Normal Blood Pressure 132/74 H Blood Pressure Mean 93 Blood Pressure Source Monitor Blood Pressure Position Semi-Fowlers Blood Pressure Location Left Arm Pulse Ox 98 Oxygen Delivery Method Room Air Weight Weight: 257 lb 15.053 oz Body Mass Index (BMI) 39.2 Physical Exam Const alert and oriented x3 HEENT normocephalic Eyes PERRL Resp normal respiratory effort and normal air movement Cardio regular rate and regular rhythm GI soft to palpation, non-tender and non-distended Extremity normal to inspection Assessment & Plan Assessment/Plan (1) Personal history of colonic polyps: PLAN: I explained endoscopy in detail to the patient. I explained the risks including but not limited to stroke or heart attack with anesthesia, perforation of the GI tract, bleeding, infection. I explained that any of these could necessitate further emergency surgery. The patient understands and all questions were answered sufficiently. The patient wishes to proceed with shell acosta. Michael Pride MD Pager: [facility] [address] [place] [address] [address] [place] [address] Office: Surgery Risks - Colonoscopy Risks Include but are not Limited To: Risks include but are not limited to: Bleeding, perforation requiring further surgery, inability to complete colonoscopy requiring barium enema.
--- NOTE | 2023-06-20 09:25 | OP.CCLET_ITS ---
06/20/2023 Anurag Conley [address] [place] [address] Re : Colonoscopy procedure for Lei Castro Dear Dr. Conley This procedure was performed on Tuesday, June 20, 2023. My impressions and recommendations are as follows: Impressions : - The entire examined colon is normal on direct and retroflexion views. - No specimens collected. Recommendations : - Discharge patient to home. - Resume previous diet. - Continue present medications. - Repeat colonoscopy is not recommended due to current age (66 years or older) for screening purposes. My findings are described in the full procedure note, which is enclosed. If I can be of further assistance, please feel free to contact me at Doctor phone number(s): , Work: . Sincerely, Michael Pride MD 06/20/2023 9:25:03 AM This report has been signed electronically.
--- NOTE | 2023-06-20 09:25 | OP.COLON_ITS ---
Patient Name: Lei Castro Procedure Date: 06/20/2023 7:55 AM Date of : 1950 Age: 72 Procedure: Colonoscopy Indications: High risk colon cancer surveillance: Personal history of colonic polyps Providers: Michael Pride MD Referring MD: Anurag Conley Medicines: Monitored Anesthesia Care Patient Profile: This is a 72 year old male. Refer to note in patient chart for documentation of history and physical. Last Colonoscopy: 3 years ago. Complications: No immediate complications. Procedure: Pre-Anesthesia Assessment: - Prior to the procedure, a History and Physical was performed, and patient medications and allergies were reviewed. The patient's tolerance of previous anesthesia was also reviewed. The risks and benefits of the procedure and the sedation options and risks were discussed with the patient. All questions were answered, and informed consent was obtained. Prior Anticoagulants: The patient has taken no anticoagulant or antiplatelet agents. After reviewing the risks and benefits, the patient was deemed in satisfactory condition to undergo the procedure. After I obtained informed consent, the scope was passed under direct vision. Throughout the procedure, the patient's blood pressure, pulse, and oxygen saturations were monitored continuously. The was introduced through the anus and advanced to the cecum, identified by appendiceal orifice and ileocecal valve. The colonoscopy was performed without difficulty. The patient tolerated the procedure well. The quality of the bowel preparation was good. The ileocecal valve, appendiceal orifice, and rectum were photographed. Scope In: 8:58:28 AM Scope Withdrawal Time 0 hours 5 minutes 49 seconds Scope Out: 9:11:13 AM Total Procedure Duration Time 0 hours 12 minutes 45 seconds Findings: The entire examined colon appeared normal on direct and retroflexion views. Impression: - The entire examined colon is normal on direct and retroflexion views. - No specimens collected. Recommendation: - Discharge patient to home. - Resume previous diet. - Continue present medications. - Repeat colonoscopy is not recommended due to current age (66 years or older) for screening purposes. Procedure Code(s): --- Professional --- 27061, Colonoscopy, flexible; diagnostic, including collection of specimen(s) by brushing or washing, when performed (separate procedure) Diagnosis Code(s): --- Professional --- Z86.010, Personal history of colonic polyps CPT copyright 2021 [employer]. All rights reserved. The codes documented in this report are preliminary and upon substation operator helper review may be revised to meet current compliance requirements. Michael Pride MD 06/20/2023 9:25:03 AM This report has been signed electronically. Number of Addenda: 0 Note Initiated On: 06/20/2023 7:55 AM
== END 2023-06-20 09:58 | disposition home or self-care (01) ==
LOC: EN 07:53 → AC 07:54
PROVIDERS: PCP Family Medicine; Referring Provider Family Medicine; Visit Provider Surgery
PROC: 0DJD8ZZ Inspection of Lower Intestinal Tract, Via Natural or Artificial Opening Endoscopic (ICD-10-PCS; CPT 45378; principal; 2023-06-20 08:55)
DX: Z12.11 Encounter for screening for malignant neoplasm of colon (principal); I25.10 Atherosclerotic heart disease of native coronary artery without angina pectoris; I10 Essential (primary) hypertension; E78.00 Pure hypercholesterolemia, unspecified; I25.2 Old myocardial infarction; G47.33 Obstructive sleep apnea (adult) (pediatric); Z86.010 Personal history of colon polyps; Z79.899 Other long term (current) drug therapy; Z79.82 Long term (current) use of aspirin; Z95.5 Presence of coronary angioplasty implant and graft
CPT/HCPCS: G0105; J7120; J2405

== ENCOUNTER → 2023-06-26 | Outpatient (CLI) | payer MEDICARE, SELFPAY ==
[2023-06-26 12:59] LABS: PSA,Total - Annual Screen 3.21 ng/mL (0.00-4.00)
== END | disposition home or self-care (01) ==
LOC: MFPLAB 09:48
PROVIDERS: PCP Family Medicine; Visit Provider Urology
DX: Z12.5 Encounter for screening for malignant neoplasm of prostate (principal)
CPT/HCPCS: 36415; 84153; G0103

== ENCOUNTER 2023-07-07 08:47 | Day surgery (SDC) | payer MEDICARE, SELFPAY ==
[2023-07-07 09:20] VITALS: BP 118/65; PULSE 54; RESP 12; TEMP 36.4; O2SAT 100; BMI 40.1
[2023-07-07] MEDS: Lactated Ringers 1,000 ML 15 ML IV (09:28)
--- NOTE | 2023-07-07 09:36 | HP.PCM_ITS ---
History and Physical Date of Admission: 07/07/23 Intake Vital Signs 06/20/2308:24 06/28/2314:18 Height 5 ft 8 in 5 ft 8 in Weight: 263 lb BMI 39.9 BP 101/63 Blood Pressure Location Rt brachial Position Sitting Respiration 17 Pulse 51 L Pulse Source Monitor Temp 97.1 F L Temp Source Temporal Pulse Oximetry (%) 99 Oxygen Delivery Method room air Intake Visit Reasons: RECALL LETTER - EGD Chief Complaint: EGD Consult/Dysphagia Is patient in pain?: No Allergies Sulfa (Sulfonamide Antibiotics) Allergy (Verified 06/28/23 14:19) Unknown Medications aspirin 81 mg tablet,delayed release 81 mg PO QDAY 09/08/17 [History Confirmed 06/28/23] nitroglycerin 0.4 mg sublingual tablet (Nitrostat) 0.4 mg sublingual Q5-15M PRN chest pain 09/08/17 [History Confirmed 06/28/23] albuterol sulfate 90 mcg/actuation aerosol inhaler (ProAir HFA) 2 puff inhalation Q6H PRN shortness of breath or wheezing #18 grams 12/18/19 [Rx Confirmed 06/28/23] atorvastatin 20 mg tablet 20 mg PO QHS #90 tabs 07/20/22 [Rx Confirmed 06/28/23] metoprolol tartrate 50 mg tablet 25 mg PO BID 07/20/22 [History Confirmed ] amlodipine 10 mg tablet 10 mg PO DAILY 06/14/23 [History Confirmed 06/28/23] tamsulosin 0.4 mg capsule 0.4 mg PO Q24H 06/14/23 [History Confirmed 06/28/23] lisinopril 20 mg tablet 20 mg PO BID 06/28/23 [History Confirmed 06/28/23] PFSH Medical History (Updated 06/28/23 @ 14:[address] 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 INGRIS (obstructive sleep apnea) Personal history of colonic polyps Preoperative cardiovascular examination Presence of stent in coronary artery (~2012) Pure hypercholesterolemia Shortness of breath on exertion Sleep apnea Wears glasses Wears hearing aid Wears partial dentures Wheeze Surgical History H/O shoulder surgery History of cardiac catheterization History of colonoscopy with polypectomy History of knee replacement procedure of right knee Hx of bilateral cataract extraction Presence of coronary angioplasty implant and graft Family History Father Myocardial infarction, Onset Age: 73 CAD (coronary artery disease) Social History Smoking Status: Never smoker second hand exposure: Yes alcohol intake: current alcohol intake frequency: a few times a month substance use type: does not use caffeine: Yes Type: carbonated beverages HPI HPI HPI: Patient is a 72-year-old male here for dysphagia. He notes for the last month or so he has been having difficulty swallowing and he has had food get stuck twice. He says that this is feeling like it is in the middle of his esophagus. 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 ROS General General: Yes weight change; No appetite, fatigue, colon cancer, breast cancer or weakness HEENT HEENT: Yes difficulty swallowing; No eye injury, eye surgery, swollen glands or hoarseness Endo Endocrine: No thyroid disease, diabetes mellitus, thyroid cancer, Hair loss, heat intolerance or cold intolerance Skin Skin: No rash or changing moles Musc Musculoskeletal: No back problems, arthritis, rheumatoid arthritis, gout or joint pain Cardio Cardiovascular: Yes heart attack and heart stent; No murmur, pacemaker, heart disease, atrial fibrillation, high blood pressure, palpitations, shortness of breat with exertion or chest pain Psych Psychiatric: No depression, anxiety or hearing voices Resp Respiratory: Yes shortness of breath, Yes sleep apnea, No cough, No COPD, No asthma, No emphysema and No wheezing Gastro Gastrointestinal: No abdominal pain, No nausea or vomiting, No diarrhea, No constipation, No blood in stool, No acid reflux, No hemorrhoids, No ulcers, No gallbladder problem and No black,tarry stools Ridge Hematologic: No blood thinners, No blood disorders, No bleeding, No anemia and No blood clots Neuro Neurologic: No system reviewed and no additional complaints, except as documented, No as per HPI, No abnormal gait, No abnormal hearing, No abnormal movements, No abnormal speech, No behavioral changes, No burning sensations, No confusion, No convulsions, No disequilibrium, No dizziness, No localized weakness, No frequent falls, No headache(s), No lack of coordination, No loss of vision, No memory loss, No numbness, No other visual disturbances, No radicular pain, No restless legs, No sensory deficit, No syncope, No tingling, No tremor(s), No weakness and No other Exam Const General: cooperative Orientation: alert and oriented x3 HENMT Head: normal to inspection Neck Neck: normal visual inspection and full ROM Chest Chest palpation & inspection: normal inspection of the chest Resp Effort & Inspection: normal respiratory effort Auscultation: clear to auscultation bilaterally Cardio Rate: regular rate Rhythm: regular rhythm GI Inspection: non-distended Palpation: soft and nontender Skin General: no rashes or lesions noted Neuro General: patient alert and patient oriented x3 Extrem General: full ROM Psych Appearance: grossly normal Mental Status: mental status grossly normal Assessment and Plan Assessment and Plan (1) Dysphagia: Status: Acute Qualifiers: Dysphagia type: esophageal phase Qualified Code(s): R13.19 - Other dysphagia Plan: The patient has a history of dysphagia for the last month. I recommended EGD with dilation. Patient also has a history of Rodriguez's esophagus. I explained that I would perform an EGD with possible dilation or biopsy if there appeared to be malignancy. Patient will hold his aspirin for 5 days prior to the procedure. I explained endoscopy in detail to the patient. I explained the risks including but not limited to stroke or heart attack with anesthesia, perforation of the GI tract, bleeding, infection. I explained that any of these could necessitate further emergency surgery. The patient understands and all questions were answered sufficiently. The patient wishes to proceed with procedure. Michael Pride MD Pager: [facility] [address] [place] [address], [address] [place] [address] Office: I have examined the patient and the H&P has been reviewed. There are no clinical changes since date of exam.
--- NOTE | 2023-07-07 10:00 | EGD_PTH ---
PATIENT: THIERRY MARTIN LOC: EN U#:[id number] AGE/SX: 72/M ROOM: RE07/07/[address]: Dr. Michael Pride MD : 1950 BED: DIS: 07/07/2023 SPEC #: [id number] RECD: 07/07/23 18:31 STATUS: MARY CARMEN MICHAEL #: [id number] RAGHAVENDRA: 07/07/23 10:[address]: Michael Pride DEPT: SURGICAL PATHOLOGY RECD BY: Daisy Cobb ENTERED: 07/10/23 07:57 SP TYPE: EGD BIOPSY OTHR DR: Dr. Anurag Conley MD Tissues: Esophageal mucous membrane Procedures: Surgery Specimen Level IV HEADER OPERATION: EGD with biopsy PRE-OP DIAGNOSIS: Dysphagia TISSUE SUBMITTED: Mid esophagus biopsy for eosinophilic esophagitis MICROSCOPIC DIAGNOSIS Mid esophagus, biopsy: Fragments of squamous epithelium with congestion and mild chronic inflammation. See comment. SJ:margarita 07/11/2023 COMMENT Increased number of eosinophils consistent with eosinophilic esophagitis are not seen. Correlation with clinical, endoscopic findings and appropriate follow up are necessary. MICROSCOPIC DESCRIPTION Slides are reviewed. GROSS DESCRIPTION Received in fixative is one container labeled with the patient's name and designated mid esophagus biopsy. The specimen consists of multiple irregular fragments of light raymundo soft tissue that in aggregate measure 0.5 x 0.2 x 0.1 cm. The specimen is totally submitted in one cassette. / CARMITA:margarita 07/10/2023 TC:3 CPT: 95764
[2023-07-07 10:14] VITALS: BP 118/65; BP 94/60; PULSE 64; RESP 18; TEMP 36.5; O2SAT 94
--- NOTE | 2023-07-07 10:16 | OP.CCLET_ITS ---
07/07/2023 Anurag Conley [address] [place] [address] Re : Upper GI endoscopy procedure for Lei Castro Dear Dr. Conley This procedure was performed on Friday, July 07, 2023. My impressions and recommendations are as follows: Impressions : - Normal esophagus. - Normal stomach. - Normal examined duodenum. - Biopsies were taken with a cold forceps for evaluation of eosinophilic esophagitis. Recommendations : - Discharge patient to home. - Resume previous diet. - Continue present medications. - Resume aspirin at prior dose today. - Use Prilosec (omeprazole) 40 mg PO daily for 4 weeks. My findings are described in the full procedure note, which is enclosed. If I can be of further assistance, please feel free to contact me at Doctor phone number(s): , Work: . Sincerely, Michael Pride MD 07/07/2023 10:15:14 AM This report has been signed electronically.
--- NOTE | 2023-07-07 10:16 | OP.EGD_ITS ---
Patient Name: Lei Castro Procedure Date: 07/07/2023 9:57 AM Date of : 1950 Age: 72 Procedure: Upper GI endoscopy Indications: Dysphagia Providers: Michael Pride MD Medicines: Monitored Anesthesia Care Patient Profile: This is a 72 year old male. Refer to note in patient chart for documentation of history and physical. Complications: No immediate complications. Estimated blood loss: Minimal. Procedure: Pre-Anesthesia Assessment: - Prior to the procedure, a History and Physical was performed, and patient medications and allergies were reviewed. The patient's tolerance of previous anesthesia was also reviewed. The risks and benefits of the procedure and the sedation options and risks were discussed with the patient. All questions were answered, and informed consent was obtained. Prior Anticoagulants: The patient has taken no anticoagulant or antiplatelet agents except for aspirin. After reviewing the risks and benefits, the patient was deemed in satisfactory condition to undergo the procedure. After obtaining informed consent, the endoscope was passed under direct vision. Throughout the procedure, the patient's blood pressure, pulse, and oxygen saturations were monitored continuously. The Endoscope was introduced through the mouth, and advanced to the fourth part of duodenum. The upper GI endoscopy was accomplished without difficulty. The patient tolerated the procedure well. Scope In: 10:02:10 AM Scope Out: 10:05:21 AM Total Procedure Duration Time 0 hours 3 minutes 11 seconds Findings: The esophagus was normal. The stomach was normal. The examined duodenum was normal. Biopsies were obtained from the proximal and distal esophagus with cold forceps for histology of suspected eosinophilic esophagitis. Impression: - Normal esophagus. - Normal stomach. - Normal examined duodenum. - Biopsies were taken with a cold forceps for evaluation of eosinophilic esophagitis. Recommendation: - Discharge patient to home. - Resume previous diet. - Continue present medications. - Resume aspirin at prior dose today. - Use Prilosec (omeprazole) 40 mg PO daily for 4 weeks. Procedure Code(s): --- Professional --- 12189, Esophagogastroduodenoscopy, flexible, transoral; with biopsy, single or multiple Diagnosis Code(s): --- Professional --- R13.10, Dysphagia, unspecified CPT copyright 2021 [employer]. All rights reserved. The codes documented in this report are preliminary and upon auto service representative review may be revised to meet current compliance requirements. Michael Pride MD 07/07/2023 10:15:14 AM This report has been signed electronically. Number of Addenda: 0 Note Initiated On: 07/07/2023 9:57 AM
[2023-07-07 10:20] VITALS: BP 118/65; BP 98/62; PULSE 63; RESP 16; O2SAT 96
[2023-07-07 10:30] VITALS: BP 108/65; BP 118/65; PULSE 63; RESP 16; TEMP 37.4; O2SAT 99
[2023-07-07 10:58] VITALS: BP 118/65
== END 2023-07-07 11:01 | disposition home or self-care (01) ==
LOC: EN 08:47 → AC 08:48
PROVIDERS: PCP Family Medicine; Referring Provider Family Medicine; Visit Provider Surgery
PROC: 0DJ08ZZ Inspection of Upper Intestinal Tract, Via Natural or Artificial Opening Endoscopic (ICD-10-PCS; CPT 43235; principal; 2023-07-07 09:55)
DX: K20.90 Esophagitis, unspecified without bleeding (principal); R13.19 Other dysphagia; I10 Essential (primary) hypertension; I25.10 Atherosclerotic heart disease of native coronary artery without angina pectoris; E78.00 Pure hypercholesterolemia, unspecified; E66.9 Obesity, unspecified; G47.33 Obstructive sleep apnea (adult) (pediatric); I25.2 Old myocardial infarction; Z68.39 Body mass index [BMI] 39.0-39.9, adult; Z79.82 Long term (current) use of aspirin; Z79.899 Other long term (current) drug therapy; Z95.5 Presence of coronary angioplasty implant and graft
CPT/HCPCS: 43239; 88305; J7120; J2405

== ENCOUNTER → 2023-09-20 | Outpatient (CLI) | payer MEDICARE, SELFPAY ==
[2023-09-20 15:36] LABS: Absolute Lymphocyte Count 1.15 X10^3/uL (0.83-4.51); Absolute Neutrophil Count 4.5 X10^3/uL (2.0-7.7); Basophil# 0.06 X10^3/uL; Basophil% 0.9 % (0-1); Hematocrit 39.6 % (40-54); Lymphocyte # 1.15 X10^3/ul (0.83-4.51); Lymphocyte % 17.2 % (19-41); Mean Corp Hgb Conc 35.4 g/dL (32-36); Mean Corpuscular Hgb 32.6 pg (27.0-32.0); Mean Corpuscular Volume 92.3 fL (80-94); Mean Platelet Vol. 11.3 fl (6.2-12.0); Monocyte# 0.75 X10^3/uL; Monocyte% 11.2 % (0-10); NRBC Flagged by Analyzer 0 % (0-5); Neutrophil # 4.51 X10^3/uL (2.7-7.7); Neutrophil % 67.3 % (47-70); Platelet Count 159 K/mm3 (150-450); RBC Distribution Width CV 13.1 % (11.6-14.6); RBC Distribution Width SD 44.4 fl (35.1-43.9); Red Blood Count 4.29 M/mm3 (4.6-6.2); White Blood Count 6.7 K/mm3 (4.4-11.0)
[2023-09-20 16:13] LABS: ALB/GLOB Ratio 1.2 RATIO (0.9-2.4); AST(SGOT) 19 U/L (15-37); Alanine Aminotransfer ALT/SGPT 17 U/L (16-61); Albumin, Serum 3.7 g/dL (3.2-5.0); Alkaline Phosphatase 52 U/L (45-117); Anion Gap 5 (5-15); BUN 24 mg/dL (7-18); Calcium,Total 9.1 mg/dL (8.5-10.1); Chloride 113 mmol/L (98-107); Cholesterol 121 mg/dL (200); EST Glomerular Filtration Rate 63 mL/min (>60); Est Glom Filt Rate - Afr Amer 76 mL/min (>60); Globulin 3.2 g/dL (2.2-4.2); Glucose 88 mg/dL (74-106); High Density Lipoprotein 48 mg/dL; Potassium 3.9 mmol/L (3.5-5.1); Protein, Total 6.9 g/dL (6.4-8.2); Sodium Level 143 mmol/L (136-145); Triglycerides 87 mg/dL; Very Low Density Lipoprotein 17 mg/dL (5-40)
== END | disposition home or self-care (01) ==
LOC: MFPLAB 14:03
PROVIDERS: PCP Family Medicine; Visit Provider Family Medicine
DX: I25.10 Atherosclerotic heart disease of native coronary artery without angina pectoris (principal); N39.41 Urge incontinence
CPT/HCPCS: 36415; 80053; 80061; 85025

== ENCOUNTER → 2024-03-27 | Outpatient (CLI) | payer MEDICARE, SELFPAY ==
[2024-03-27 11:17] LABS: Bacteria 0 SEEN /hpf (None Seen); Mucous, Urine 0 SEEN /hpf (<or=2+); Red Blood Cells-Urine 0 SEEN /hpf (0-5)
[2024-03-27 15:05] LABS: Color, Urine Yellow (Yellow); Glucose, Dipstick Normal (Normal); Ketone-Dipstick Negative (Negative); Leukocyte Esterase-Dipstick 25 /ul (Negative); Nitrite-Dipstick Negative (Negative); Occult Blood-Urine Negative /ul (Negative); Protein-Dipstick Negative (Negative); Specific Gravity, Urine 1.015 (1.002-1.030); Urine Bilirubin Dipstick Negative (Negative); Urine Clarity Clear (Clear); Urine Urobilinogen Normal (Normal)
[2024-03-27 15:12] LABS: Squamous Epithelial Cells - UA 0-5 SEEN /hpf (0-5); White Blood Cells 0-5 SEEN /hpf (0-5)
[2024-03-27 16:54] LABS: ALB/GLOB Ratio 1.1 RATIO (0.9-2.4); AST(SGOT) 32 U/L (15-37); Alanine Aminotransfer ALT/SGPT 22 U/L (16-61); Albumin, Serum 3.7 g/dL (3.2-5.0); Alkaline Phosphatase 62 U/L (45-117); Anion Gap 6 (5-15); BUN 18 mg/dL (7-18); BUN/Creat Ratio 18.4 RATIO (10-20); Calcium,Total 9.2 mg/dL (8.5-10.1); Chloride 110 mmol/L (98-107); Cholesterol 114 mg/dL (200); Creatinine, Serum 0.98 mg/dL (0.70-1.30); EST Glomerular Filtration Rate 80 mL/min (>60); Est Glom Filt Rate - Afr Amer 96 mL/min (>60); Globulin 3.3 g/dL (2.2-4.2); Glucose 86 mg/dL (74-106); High Density Lipoprotein 52 mg/dL; Magnesium 2.4 mg/dL (1.6-2.6); Potassium 4.2 mmol/L (3.5-5.1); Sodium Level 142 mmol/L (136-145); Thyroid Stim Hormone (TSH) 1.27 uIU/mL (0.358-3.74); Triglycerides 93 mg/dL; Very Low Density Lipoprotein 19 mg/dL (5-40)
== END | disposition home or self-care (01) ==
LOC: MFPLAB 11:15
PROVIDERS: PCP Family Medicine; Visit Provider Family Medicine
DX: I10 Essential (primary) hypertension (principal)
CPT/HCPCS: 36415; 80053; 80061; 81001; 83735; 84443

== ENCOUNTER → 2024-07-16 | Outpatient (CLI) | payer MEDICARE, SELFPAY ==
[2024-07-16 12:25] LABS: PSA,Total- Diagnostic 2.93 ng/mL (0.0-4.0)
== END | disposition home or self-care (01) ==
LOC: MFPLAB 09:50
PROVIDERS: PCP Family Medicine; Visit Provider Urology
DX: R97.20 Elevated prostate specific antigen [PSA] (principal)
CPT/HCPCS: 36415; 84153

== ENCOUNTER → 2024-08-28 | Outpatient (CLI) | payer MEDICARE, SELFPAY ==
[2024-08-28 12:17] LABS: Bacteria 0 SEEN /hpf (None Seen)
[2024-08-28 15:39] LABS: Absolute Lymphocyte Count 1.43 X10^3/uL (0.83-4.51); Absolute Neutrophil Count 4.1 X10^3/uL (2.0-7.7); Basophil# 0.06 X10^3/uL; Basophil% 0.9 % (0-1); Eosinophil# 0.23 X10^3/uL; Eosinophils% 3.5 % (0-5); Hematocrit 39.3 % (40-54); Hemoglobin 13.6 g/dL (13.0-16.5); Lymphocyte # 1.43 X10^3/ul (0.83-4.51); Lymphocyte % 21.7 % (19-41); Mean Corp Hgb Conc 34.6 g/dL (32-36); Mean Corpuscular Hgb 32.7 pg (27.0-32.0); Mean Corpuscular Volume 94.5 fL (80-94); Mean Platelet Vol. 11.3 fl (6.2-12.0); Monocyte# 0.72 X10^3/uL; Monocyte% 10.9 % (0-10); NRBC Flagged by Analyzer 0 % (0-5); Neutrophil # 4.12 X10^3/uL (2.7-7.7); Neutrophil % 62.5 % (47-70); Platelet Count 170 K/mm3 (150-450); RBC Distribution Width CV 13.3 % (11.6-14.6); RBC Distribution Width SD 45.9 fl (35.1-43.9); Red Blood Count 4.16 M/mm3 (4.6-6.2); White Blood Count 6.6 K/mm3 (4.4-11.0)
[2024-08-28 15:59] LABS: ALB/GLOB Ratio 1.3 RATIO (0.9-2.4); AST(SGOT) 17 U/L (15-37); Alanine Aminotransfer ALT/SGPT 18 U/L (16-61); Albumin, Serum 3.9 g/dL (3.2-5.0); Alkaline Phosphatase 53 U/L (45-117); Anion Gap 2 (5-15); BUN 25 mg/dL (7-18); Calcium,Total 9.1 mg/dL (8.5-10.1); Chloride 114 mmol/L (98-107); Cholesterol 104 mg/dL (200); Creatinine, Serum 0.96 mg/dL (0.70-1.30); EST Glomerular Filtration Rate 81 mL/min (>60); Est Glom Filt Rate - Afr Amer 98 mL/min (>60); Glucose 94 mg/dL (74-106); High Density Lipoprotein 50 mg/dL; Protein, Total 6.9 g/dL (6.4-8.2); Sodium Level 142 mmol/L (136-145); Triglycerides 118 mg/dL; Very Low Density Lipoprotein 24 mg/dL (5-40)
[2024-08-28 16:03] LABS: Color, Urine Yellow (Yellow); Glucose, Dipstick Normal (Normal); Ketone-Dipstick Negative (Negative); Leukocyte Esterase-Dipstick 25 /ul (Negative); Nitrite-Dipstick Negative (Negative); Occult Blood-Urine Negative /ul (Negative); Protein-Dipstick 15 mg/dl (Negative); Urine Clarity Clear (Clear); Urine Urobilinogen 1 mg/dl (Normal)
[2024-08-28 16:06] LABS: Urine Bilirubin Dipstick 1 mg/dL (Negative)
[2024-08-28 20:32] LABS: Mucous, Urine 3+ /hpf (<or=2+); Squamous Epithelial Cells - UA 0-5 SEEN /hpf (0-5)
[2024-08-28 20:33] LABS: Red Blood Cells-Urine 0-5 SEEN /hpf (0-5); White Blood Cells 0-5 SEEN /hpf (0-5)
== END | disposition home or self-care (01) ==
LOC: MFPLAB 12:14
PROVIDERS: PCP Family Medicine; Referring Provider Family Medicine; Visit Provider Family Medicine
DX: I10 Essential (primary) hypertension (principal)
CPT/HCPCS: 36415; 80053; 80061; 81001; 85025

== ENCOUNTER → 2025-04-01 | Outpatient (CLI) | payer MEDICARE, SELFPAY ==
[2025-04-01 12:23] LABS: Hematocrit 42.7 % (40-54); Hemoglobin 15.0 g/dL (13.0-16.5); Immature Granulocytes Count 0.110 X10^3/uL (0.0-0.0); Mean Corp Hgb Conc 35.1 g/dL (32-36); Mean Corpuscular Volume 92.0 fL (80-94); Mean Platelet Vol. 11.4 fl (6.2-12.0); NRBC Flagged by Analyzer 0 % (0-5); Platelet Count 176 K/mm3 (150-450); RBC Distribution Width CV 13.0 % (11.6-14.6); RBC Distribution Width SD 44.1 fl (35.1-43.9); Red Blood Count 4.64 M/mm3 (4.6-6.2); White Blood Count 9.1 K/mm3 (4.4-11.0)
[2025-04-01 13:35] LABS: AST(SGOT) 30 U/L (<=37); Alanine Aminotransfer ALT/SGPT 45 U/L (<=46); Albumin, Serum 4.2 g/dL (3.4-4.8); Alkaline Phosphatase 64 U/L (40-129); Anion Gap 11 (5-15); BUN 17 mg/dL (4-19); BUN/Creat Ratio 18.2 RATIO (10-20); Calcium,Total 9.3 mg/dL (7.6-11.0); Carbon Dioxide 22.3 mmol/L (21.0-32.0); Chloride 107 mmol/L (98-108); Cholesterol 106 mg/dL (<=200); Globulin 2.7 g/dL (2.2-4.2); Glucose 99 mg/dL (70-99); Low Density Lipoprotein Calc. 30 mg/dL; PSA,Total - Annual Screen 2.70 ng/mL (0.02-4.00); Potassium 3.8 mmol/L (3.3-5.1); Triglycerides 129 mg/dL; Very Low Density Lipoprotein 26 mg/dL (5-40); cholesterol:hdl ratio screen 2.12
--- OUTSIDE RECORDS SUMMARY | 2025-04-01 19:20 | XMS RPT_ITS | CCD ---
Author Organization [facility] Care Team Providers Care Alum Operator Name Role Phone ARMIDA ALEJANDRO MD Primary Care Physician [phone] Armida Alejandro Primary Care Provider [phone] Dr. Armida Alejandro Referring Provider Dr. Ar Bronson Attending Provider Dr. Armida Alejandro Primary Care Provider [phone] Dr. Armida Alejandro Referring Provider BEE Mayer Attending Provider Dr. Armida Alejandro Primary Care Provider [phone] Dr. Armida Alejandro Referring Provider BEE Mayer Attending Provider Dr. Armida Alejandro Primary Care Provider [phone] Dr. Armida Alejandro Referring Provider [phone] Michael Pride Attending Provider Dr. Michael Pride Other Provider [phone] Armida Alejandro Attending Unavailable Armida Alejandro Referring Unavailable Armida Alejandro Primary Care Unavailable Taco Hanson Attending Unavailable Armida Alejandro Primary Care Unavailable Armida Alejandro Primary Care Unavailable Armida Alejandro Attending Unavailable Armida Alejandro Primary Care Unavailable Armida Alejandro Referring Unavailable Natalee Mayer Attending Unavail able Allergies Allergy Classification Reported Allergen(s) Allergy Type Date of Onset Reaction(s) Facility (2 sources) Sulfonamides (Antibiotic); Translations: [sulfa drugs] Drug allergy UNKNOWN [facility] Comment on above: WAS TOLD HE HAD AN A LLERGY A CHILD (8 sources) Sulfonamides (Antibiotic) Allergy to substance 2 Unknown (1 source) Sulfonamides (Antibiotic) Drug allergy (disorder) 4 Repository Medications Current Medications Medication Drug Class(es) Dates Sig (Normalized) Sig (Original) [id number] 200 actuat albuterol 0.09 mg/actuat metered dose inhaler (18 sources) beta2-Adrenergic Agonist Start: 03-19-2021 take 2 puff(s) by inhalation every six hours ProAir HFA MDI (90 mcg/inh) inhalation aerosol 2 puff(s), Inhalation, q6hr, 0 Refill(s) Start Date: 03/19/21 Status: Ordered Start: 12-18-2019 take 1 puff(s) by in halation every six hours Albuterol Sulfate (Proair Hfa) 90 mcg/actuation HFA aerosol inhaler Active 2 PUFF INHALATION EVERY 6 HOURS December 18, 2019 7:05am Start: 11-30-2018 End: 12-18-2019 take 1 puff(s) by inhalation every six hours Albuterol Sulfate (Proair Hfa) 90 mcg/actuation HFA aerosol inhaler Discontinued 2 PUFF INHALATION EVERY 6 HOURS November 29, 2018 11:00pm December 18, 2019 7:05am amLODIPine 10 mg oral tablet (11 sources) Dihydropyridine Calcium Channel Julius Start: 06-14-2023 take 10 mg by mouth once daily Amlodipine Active 10 MG PO DAILY June 13, 2023 11:00pm Start: 03-22-2022 End: 07-20-2022 take 10 mg by mouth once daily Amlodipine Discontinued 10 MG PO DAILY March 21, 2022 11:00pm July 20, 2022 1:39pm Start: 02-04-2022 amLODIPine 10 mg oral tablet Dose : 10 mg = 1 tab(s), Oral, qDay, # 30 tab(s), 0 Refill(s) Start Date: 02/04/22 Status: Ordered aspirin 81 mg delayed release oral tablet (10 sources) Platelet Aggregation Inhibitor, Nonsteroidal Anti-inflammatory Drug Start: 2017 take 81 mg by mouth once daily Aspirin Active 81 MG PO daily 2017 12:00am Start: 10-07-2013 aspirin 81 mg oral tablet (chewable) Dose : 81 mg = 1 tab(s), Oral, qDayM, 0 Refill(s) Start Date: 10/07/13 Status: Ordered lisinopril 20 mg oral tablet (20 sources) Angiotensin Converting Enzyme Inhibitor Start: 06-28-2023 End: 07-17-2023 take 20 mg by mouth twice daily Lisinopril Active 20 MG PO TWICE A DAY 180 July 17, 2023 11:31am Start: 07-20-2022 End: 06-28-2023 take 10 mg by mouth twice daily Lisinopril Discontinued 10 MG PO TWICE A DAY 180 July 20, 2022 2:00pm June 28, 2023 1:20pm Start: 07-20-2022 End: 07-20-2022 take 10 mg by mouth twice daily Lisinopril Discontinued 10 MG PO TWICE A DAY July 20, 2022 1:59pm July 20, 2022 2:01pm Start: 07-20-2022 End: 07-20-2022 take 10 mg by mouth once daily Lisinopril Discontinued 10 MG PO DAILY July 20, 2022 1:38pm July 20, 2022 1:59pm Start: 09-21-2021 End: 07-20-2022 take 20 mg by mouth once daily Lisinopril Discontinued 20 MG PO DAILY September 21, 2021 1:40pm July 20, 2022 1:39pm Start: 03-17-2021 End: 09-21-2021 take 20 mg by mouth once daily Lisinopril Discontinued 20 MG PO DAILY March 17, 2021 2:29pm September 21, 2021 1:40pm Start: 09-17-2020 End: 03-17-2021 take 10 mg by mouth once daily Lisinopril Discontinued 10 MG PO DAILY 90 September 17, 2020 4:36pm March 17, 2021 2:29pm Start: 09-17-2020 End: 09-17-2020 take 10 mg by mouth once daily Lisinopril Discontinued 10 MG PO DAILY September 17, 2020 4:36pm September 17, 2020 4:37pm Start: 09-17-2020 End: 09-17-2020 take 5 mg by mouth once daily Lisinopril Discontinued 5 MG PO DAILY September 17, 2020 12:00am September 17, 2020 4:36pm metoprolol tartrate 50 mg oral tablet (20 sources) beta-Adrenergic Julius Start: 07-20-2022 take 25 mg by mouth twice daily Metoprolol Tartrate Active 25 MG PO TWICE A DAY July 20, 2022 1:38pm Start: 09-17-2020 End: 07-20-2022 take 50 mg by mouth twice daily Metoprolol Tartrate Discontinued 50 MG PO TWICE A DAY September 17, 2020 12:00am July 20, 2022 1:39pm Start: 2017 End: 09-17-2020 take 50 mg by mouth twice daily Metoprolol Tartrate Discontinued 50 MG PO TWICE A DAY 2017 12:00am September 17, 2020 3:53pm nitroglycerin 0.4 mg sublingual tablet (10 sources) Nitrate Vasodilator Start: 03-19-2021 nitroglyce rin 0.4 mg sublingual tablet See Instructions, 1 tab(s) Sublingual, 0 Refill(s) Start Date: 03/19/21 Status: Ordered Start: 2017 Nitroglycerin (Nitrostat) 0.4 mg tablet, sublingual Active 0.4 MG SL every 5 to 15 minutes 2017 12:00am omeprazole 40 mg delayed release oral capsule (2 sources) Proton Pump Inhibitor Start: 07-07-2023 End: 09-25-2023 take 1 capsule by mouth once daily Omeprazole Active 0 .ROUTE .COMPLEX 90 September 25, 2023 11:18am take 1 capsule by mouth once daily tamsulosin hydrochloride 0.4 mg oral capsule (1 source) alpha-Adrenergic Julius Start: 06-14-2023 take 0.4 mg by mouth every twenty-four hours Tamsulosin Active 0.4 MG PO Q24H June 13, 2023 11:00pm Vitamin D3 (2 sources) Start: 02-04-2022 Vitamin D3 Dos e : 1,000 unit(s) = 1 tab(s), Oral, Daily, 0 Refill(s) Start Date: 02/04/22 Status: Ordered Completed/Discontinued Medications Medication Drug Class(es) Dates Sig (Normalized) Sig (Original) atorvastatin 20 mg oral tablet (20 sources) HMG-CoA Reductase Inhibitor Start: 2017 End: 09-05-2023 take 20 mg by mouth at bedtime Atorvastatin Discontinued 20 MG PO AT BEDTIME 90 September 20, 2021 2:09pm July 20, 2022 2:01pm brimonidine tartrate 2 mg/ml ophthalmic solution (8 sources) alpha-Adrenergic Agonist Start: 04-08-2020 End: 01-26-2022 Brimonidine Discontinued 1 DRP EACH EYE TWICE A DAY April 07, 2020 11:00pm January 26, 2022 1:34pm famotidine 20 mg oral tablet (10 sources) Histamine-2 Receptor Antagonist Start: 07-03-2020 End: 02-27-2023 take 20 mg by mouth twice daily Famotidine Discontinued 20 MG PO TWICE A DAY July 02, 2020 11:00pm February 27, 2023 2:44pm latanoprost 0.05 mg/ml ophthalmic solution (10 sources) Prostaglandin Analog Start: 04-08-2020 End: 05-22-2023 Latanoprost Discontinued 1 DRP EACH EYE AT BEDTIME April 07, 2020 11:00pm May 22, 2023 3:21pm Start: 01-10-2020 take 1 dose into the eye(s) once daily at bedtime latanoprost 0.005% ophthalmic solution Dose = 1 drop(s), Eyes, both, qHS, # 2.5 mL, 0 Refill(s) Start Date: 01/10/20 Status: Ordered meloxicam 7.5 mg oral tablet (16 sources) Nonsteroidal Anti-inflammatory Drug Start: 11-30-2021 End: 01-26-2022 take 7.5 mg by mouth once daily Meloxicam Discontinued 7.5 MG PO DAILY November 29, 2021 11:00pm January 26, 2022 1:34pm Start: 09-17-2020 End: 07-20-2022 take 1 tablet by mouth once daily Meloxicam (Mobic) 15 mg tablet Discontinued 15 MG PO DAILY September 17, 2020 12:00am July 20, 2022 1:39pm 24 hr oxybutynin chloride 10 mg extended release oral tablet (8 sources) Cholinergic Muscarinic Antagonist Start: 03-22-2022 End: 07-20-2022 take 10 mg by mouth once daily Oxybutynin Chloride Discontinued 10 MG PO DAILY March 21, 2022 11:00pm July 20, 2022 1:39pm Problems Problem Classification Problem Date Documented Da te Episodic/Chronic Acute myocardial infarction (2 sources) Myocardial infarction 07-27-2016 Chronic Coronary atherosclerosis and other heart disease (20 sources) Coronary arteriosclerosis; Translations: [History of non-ST segment elevation myocardial infarction] 07-28-2016 Chronic Coronary atherosclerosis and other heart disease (10 sources) Stented coronary artery; Translations: [Presence of coronary angioplasty implant and graft] 09-17-2020 Episodic Disorders of lipid metabolism (12 sources) Hypercholesterolemi a; Translations: [Pure hypercholesterolemi a] 07-27-2016 Chronic Essential hypertension (13 sources) Hypertensive disorder; Translations: [Essential hypertension] Onset: 10-03-2024 07-28-2016 Chronic Other and unspecified benign neoplasm (8 sources) History of polyp of colon; Translations: [Personal history of colonic polyps] 07-10-2020 Episodic Other and unspecified benign neoplasm (1 source) Personal history of colonic polyps; Translations: [Personal history of colonic polyps] 06-20-2023 Episodic Other gastrointestinal disorders (1 source) Dysphagia; Translations: [Dysphagia, unspecified] 06-28-2023 Episodic Other gastrointestinal disorders (2 sources) Dysphagia, unspecified; Translations: [Dysphagia, unspecified] 06-28-2023 Episodic Other injuries and conditions due to external causes (8 sources) Obstruction of esophagus; Translations: [Unspecified foreign body in esophagus causing other injury, initial encounter] 06-19-2020 Episodic Other lower respiratory disease (2 sources) Dyspnea 07-27-2016 Episodic Other lower respiratory disease (8 sources) Dyspnea on exertion; Translations: [Other forms of dyspnea] 06-19-2020 Episodic Other lower respiratory disease (8 sources) Wheezing; Translations: [Wheezing] 06-19-2020 Episodic Other nervous system disorders (8 sources) Dysphasia; Translations: [Dysphasia] 06-19-2020 Episodic Other nutritional; endocrine; and metabolic disorders (8 sources) Obesity; Translations: [Obesity, unspecified] 09-18-2017 Chronic Other screening for suspected conditions (not mental disorders or infectious disease) (2 sources) Patient encounter status; Translations: [Encounter for screening for malignant neoplasm of colon] Onset: 08-05-2024 05-22-2023 Episodic Residual codes; unclassified (8 sources) Obstructive sleep apnea syndrome; Translations: [Obstructive sleep apnea (adult) (pediatric)] 09-18-2017 Chronic Residual codes; unclassified (1 source) Obstructive sleep apnea (adult) (pediatric); Translations: [Obstructive sleep apnea (adult)(pediatric)] Chronic Results Test Name Value Interpretation Reference Range Facility CBC W/Diff, Automatedon 08-11 Absolute Lymph 1.43 X10 3/uL Normal 0.83-4.51 Comment on above: Order Comment: Order Date: 03/27/24 Order Info: [id number] - CBCD Performed By: #### L 100.0100, L500.4100, L500.4050 #### Laboratory [address] [place], [address] Absolute Neut 4.1 X10 3/uL Normal 2.0-7.7 Comment on above: Order Comment: Order Date: 03/27/24 Order Info: [id number] - CBCD Performed By: #### L 100.0100, L500.4100, L500.4050 #### Laboratory [address] [place], [address] Basophils/100 WBC (Bld) 0.9 % Normal 0-1 Comment on above: Order Comment: Order Date: 03/27/24 Order Info: 0184-1 - CBCD Performed By: #### L 100.0100, L500.4100, L500.4050 #### Laboratory [address] [place], [address] Eosinophils/100 WBC (Bld) 3.5 % Normal 0-5 Comment on above: Order Comment: Order Date: 03/27/24 Order Info: [id number] - CBCD Performed By: #### L 100.0100, L500.4100, L500.4050 #### Laboratory [address] [place], [address] Erythrocyte distribution width (RBC) [Ratio] 13.3 % Normal 11.6-14.6 Comment on above: Order Comment: Order Date: 03/27/24 Order Info: 0184-1 - CBCD Performed By: #### L 100.0100, L500.4100, L500.4050 #### [facility] [address] [place], [address] Hematocrit (Bld) [Volume fraction] 39.3 % Low 40-54 Comment on above: Order Comment: Order Date: 03/27/24 Order Info: [id number]- - CBCD Performed By: #### L 100.0100, L500.4100, L500.4050 #### [facility] [address] [place], [address] Hemoglobin (Bld) [Mass/Vol] 13.6 g/dL Normal 13.0-16.5 Comment on above: Order Comment: Order Date: 03/27/24 Order Info: 0184-1 - CBCD Performed By: #### L 100.0100, L500.4100, L500.4050 #### Laboratory [address] [place], [address] IG% 0.500 Normal 0.0-0.9 Comment on above: Order Comment: Order Date: 03/27/24 Order Info: 0184-1 - CBCD Result Comment: IG% - Immature Granulocytes (promyelocytes, myelocytes and metamyelocytes) > 1% indicates that a LEFT SHIFT is Present. Performed By: #### L 100.0100, L500.4100, L500.4050 #### [facility] [address] [place], [address] Lymphocytes/100 WBC (Bld) 21.7 % Normal 19-41 Comment on above: Order Comment: Order Date: 03/27/24 Order Info: 0184-1 - CBCD Performed By: #### L 100.0100, L500.4100, L500.4050 #### [facility] [address] [place], [address] MCH (RBC) [Entitic mass] 32.7 pg High 27.0-32.0 Comment on above: Order Comment: Order Date: 03/27/24 Order Info: 0184-1 - CBCD Performed By: #### L 100.0100, L500.4100, L500.4050 #### [facility] [address] [place], [address] MCHC (RBC) [Mass/Vol] 34.6 g/dL Normal 32-36 [facility] Comment on above: Order Comment: Order Date: 03/27/24 Order Info: 0184-1 - CBCD Performed By: #### L 100.0100, L500.4100, L500.4050 #### Laboratory [address] [place], [address] MCV (RBC) [Entitic vol] 94.5 fL High 80-94 Comment on above: Order Comment: Order Date: 03/27/24 Order Info: 0184-1 - CBCD Performed By: #### L 100.0100, L500.4100, L500.4050 #### [facility] [address] [place], [address] Monocytes/100 WBC (Bld) 10.9 % High 0-10 Comment on above: Order Comment: Order Date: 03/27/24 Order Info: 0184-1 - CBCD Performed By: #### L 100.0100, L500.4100, L500.4050 #### [facility] [address] [place], [address] Neutrophils/100 WBC (Bld) 62.5 % Normal 47-70 Comment on above: Order Comment: Order Date: 03/27/24 Order Info: 0184-1 - CBCD Performed By: #### L 100.0100, L500.4100, L500.4050 #### [facility] [address] [place], [address] Nucleated RBC (Bld) [#/Vol] 0 10*3/uL Normal 0-5 Comment on above: Order Comment: Order Date: 03/27/24 Order Info: 0184-1 - CBCD Performed By: #### L 100.0100, L500.4100, L500.4050 #### [facility] [address] [place], [address] Platelet mean volume (Bld) [Entitic vol] 11.3 fL Normal 6.2-12.0 Comment on above: Order Comment: Order Date: 03/27/24 Order Info: [id number] - CBCD Performed By: #### L 100.0100, L500.4100, L500.4050 #### [facility] [address] [place], [address] Platelets (Bld) [#/Vol] 170 10*3/uL Normal 150-450 Comment on above: Order Comment: Order Date: 03/27/24 Order Info: 0184-1 - CBCD Performed By: #### L 100.0100, L500.4100, L500.4050 #### [facility] [address] [place], [address] RBC (Bld) [#/Vol] 4.16 10*6/uL Low 4.6-6.2 [facility] Comment on above: Order Comment: Order Date: 03/27/24 Order Info: 0184-1 - CBCD Performed By: #### L 100.0100, L500.4100, L500.4050 #### [facility] [address] [place], [address] RDW SD 45.9 fl High 35.1-43.9 Comment on above: Order Comment: Order Date: 03/27/24 Order Info: 0184-1 - CBCD Performed By: #### L 100.0100, L500.4100, L500.4050 #### [facility] [address] [place], [address] WBC (Bld) [#/Vol] 6.6 10*3/uL Normal 4.4-11.0 [facility] Comment on above: Order Comment: Order Date: 03/27/24 Order Info: 0184-1 - CBCD Performed By: #### L 100.0100, L500.4100, L500.4050 #### [facility] [address] [place], [address] Comprehensive Metabolic Prof [facility] 08-28-2024 Albumin [Mass/Vol] 3.9 g/dL Normal 3.2-5.0 [facility] Comment on above: Order Comment: Order Date: 03/27/24 Order Info: 0786-1 - CMP Order Info: [id number] - LIPID Performed By: #### L 100.0100, L500.4100, L500.4050 #### [facility] [address] [place], [address] Albumin/Globulin [Mass ratio] 1.3 {ratio} Normal 0.9-2.4 Comment on above: Order Comment: Order Date: 03/27/24 Order Info: [id number] - CMP Order Info: [id number] - LIPID Performed By: #### L 100.0100, L500.4100, L500.4050 #### [facility] [address] [place], [address] ALK P 53 U/L Normal 45-117 Comment on above: Order Comment: Order Date: 03/27/24 Order Info: 0786-1 - CMP Order Info: [id number] - LIPID Performed By: #### L 100.0100, L500.4100, L500.4050 #### [facility] [address] [place], [address] ALT [Catalytic activity/Vol] 18 U/L Normal 16-61 Comment on above: Order Comment: Order Date: 03/27/24 Order Info: 0786-1 - CMP Order Info: [id number] - LIPID Performed By: #### L 100.0100, L500.4100, L500.4050 #### [facility] [address] [place], [address] AST [Catalytic activity/Vol] 17 U/L Normal 15-37 Comment on above: Order Comment: Order Date: 03/27/24 Order Info: 07- - CMP Order Info: [id number] - LIPID Performed By: #### L 100.0100, L500.4100, L500.4050 #### [facility] [address] [place], [address] Bilirubin [Mass/Vol] 0.60 mg/dL Normal 0.20-1.00 [facility] Comment on above: Order Comment: Order Date: 03/27/24 Order Info: 0786- - CMP Order Info: [id number] - LIPID Result Comment: For patients on eltrombopag therapy, use of Dimension [place] TBIL is not recommended. Performed By: #### L 100.0100, L500.4100, L500.4050 #### [facility] [address] [place], [address] BUN/CRE 26.0 RATIO High 10-20 Comment on above: Order Comment: Order Date: 03/27/24 Order Info: 0786-1 - CMP Order Info: [id number] - LIPID Performed By: #### L 100.0100, L500.4100, L500.4050 #### [facility] [address] [place], [address] CA,Total 9.1 mg/dL Normal 8.5-10.1 Comment on above: Order Comment: Order Date: 03/27/24 Order Info: 0786-1 - CMP Order Info: [id number] - LIPID Performed By: #### L 100.0100, L500.4100, L500.4050 #### [facility] [address] [place], [address] Chloride [Moles/Vol] 114 mmol/L High 98-107 [facility] Comment on above: Order Comment: Order Date: 03/27/24 Order Info: [id number] - CMP Order Info: [id number] - LIPID Performed By: #### L 100.0100, L500.4100, L500.4050 #### [facility] [address] [place], [address] CO2 [Moles/Vol] 26.0 mmol/L Normal 21.0-32.0 Comment on above: Order Comment: Order Date: 03/27/24 Order Info: [id number] - CMP Order Info: [id number] - LIPID Performed By: #### L 100.0100, L500.4100, L500.4050 #### [facility] [address] [place], [address] Creatinine [Mass/Vol] 0.96 mg/dL Normal 0.70-1.30 [facility] Comment on above: Order Comment: Order Date: 03/27/24 Order Info: 07- - CMP Order Info: [id number] - LIPID Result Comment: The validity of the calculated GFR GFRAA in patients over 70 years has not been determined. Clinical correlation is essential. Performed By: #### L 100.0100, L500.4100, L500.4050 #### [facility] [address] [place], [address] EST GFR - AA 98 mL/min Normal >60 Comment on above: Order Comment: Order Date: 03/27/24 Order Info: 07 - CMP Order Info: [id number] - LIPID Result Comment: Afri can Italian GFR Calc Performed By: #### L 100.0100, L500.4100, L500.4050 #### [facility] [address] [place], [address] GAP 2 Low 5-15 Comment on above: Order Comment: Order Date: 03/27/24 Order Info: [id number] - CMP Order Info: [id number] - LIPID Performed By: #### L 100.0100, L500.4100, L500.4050 #### [facility] [address] [place], [address] GFR/1.73 sq M.predicted among non-blacks MDRD (S/P/Bld) [Vol rate/Area] 81 mL/min/{1.73_m2} Normal >60 Comment on above: Order Comment: Order Date: 03/27/24 Order Info: 0786 - CMP Order Info: [id number] - LIPID Result Comment: Non- GFR Calc Performed By: #### L 100.0100, L500.4100, L500.4050 #### [facility] [address] [place], [address] Globulin (S) [Mass/Vol] 3.0 g/dL Normal 2.2-4.2 Comment on above: Order Comment: Order Date: 03/27/24 Order Info: 0786- - CMP Order Info: [id number] - LIPID Performed By: #### L 100.0100, L500.4100, L500.4050 #### [facility] [address] [place], [address] Glucose [Mass/Vol] 94 mg/dL Normal 74-106 [facility] Comment on above: Order Comment: Order Date: 03/27/24 Order Info: [id number] - CMP Order Info: [id number] - LIPID Performed By: #### L 100.0100, L500.4100, L500.4050 #### [facility] [address] [place], [address] Potassium [Moles/Vol] 4.0 mmol/L Normal 3.5-5.1 [facility] Comment on above: Order Comment: Order Date: 03/27/24 Order Info: [id number] - CMP Order Info: [id number] - LIPID Performed By: #### L 100.0100, L500.4100, L500.4050 #### [facility] [address] [place], [address] Sodium [Moles/Vol] 142 mmol/L Normal 136-145 [facility] Comment on above: Order Comment: Order Date: 03/27/24 Order Info: [id number] - CMP Order Info: [id number] - LIPID Performed By: #### L 100.0100, L500.4100, L500.4050 #### [facility] [address] [place], [address] T PROT 6.9 g/dL Normal 6.4-8.2 Comment on above: Order Comment: Order Date: 03/27/24 Order Info: [id number] - CMP Order Info: [id number] - LIPID Performed By: #### L 100.0100, L500.4100, L500.4050 #### [facility] [address] [place], [address] Urea nitrogen [Mass/Vol] 25 mg/dL High 7-18 Comment on above: Order Comment: Order Date: 03/27/24 Order Info: 0786-1 - CMP Order Info: [id number] - LIPID Performed By: #### L 100.0100, L500.4100, L500.4050 #### [facility] [address] [place], [address] Lipid Profileon 08-28-2024 Cholesterol [Mass/Vol] 104 mg/dL Normal 200 Comment on above: Order Comment: Order Date: 03/27/24 Order Info: 07 - CMP Order Info: [id number] - LIPID Result Comment: <200 mg/dL Desirable 200-240 mg/dL Borderline >240 mg/dL High Risk Performed By: #### L 100.0100, L500.4100, L500.4050 #### [facility] [address] [place], [address] Cholesterol in HDL [Mass/Vol] 50 mg/dL Normal Comment on above: Order Comment: Order Date: 03/27/24 Order Info: 07 - CMP Order Info: [id number] - LIPID Result Comment: The drugs N-Acetylcysteine and Metamizole may falsely depress this assay. Reference Range HDL <40 mg/dL Low HDL Cholesterol HDL >or= 60 mg/dL High HDL Cholesterol Performed By: #### L 100.0100, L500.4100, L500.4050 #### [facility] [address] [place], [address] Cholesterol in LDL [Mass/Vol] 30 mg/dL Normal 0-130 Comment on above: Order Comment: Order Date: 03/27/24 Order Info: [id number] - CMP Order Info: [id number] - LIPID Performed By: #### L 100.0100, L500.4100, L500.4050 #### [facility] [address] [place], [address] Cholesterol in VLDL [Mass/Vol] 24 mg/dL Normal 5-40 Comment on above: Order Comment: Order Date: 03/27/24 Order Info: 0786- - CMP Order Info: [id number] - LIPID Performed By: #### L 100.0100, L500.4100, L500.4050 #### [facility] [address] [place], [address] Triglyceride [Mass/Vol] 118 mg/dL Normal Comment on above: Order Comment: Order Date: 03/27/24 Order Info: 0786-1 - CMP Order Info: [id number] - LIPID Result Comment: The drugs N-Acetylcysteine and Metamizole may falsely depress this assay. Serum Triglycerides Reference Interval Normal <150 mg/dL Borderline high 150 - 199 mg/dL High 200 - 499 mg/dL Very High > or = 500 mg/dL Performed By: #### L 100.0100, L500.4100, L500.4050 #### [facility] [address] [place], [address] Urinalysis, Completeon 08-28 RBC 0-5 SEEN Normal 0-5 Comment on above: Order Comment: CLEAN CATCH Performed By: #### L 400.0001 #### [facility] [address] [place], [address] WBC 0-5 SEEN Normal 0-5 Comment on above: Order Comment: CLEAN CATCH Performed By: #### L 400.0001 #### [facility] [address] [place], [address] EPI,SQUAMOUS 0-5 SEEN Normal 0-5 Comment on above: Order Comment: CLEAN CATCH Performed By: #### L 400.0001 #### [facility] [address] [place], [address] Mucus Ql (Urine sed) 3+ /hpf Normal [facility] Comment on above: Order Comment: CLEAN CATCH Performed By: #### L 400.0001 #### [facility] [address] [place], [address] BACTERIA 0 SEEN Normal None Seen Comment on above: Order Comment: CLEAN CATCH Performed By: #### L 400.0001 #### [facility] [address] [place], [address] PSA,Total- Diagnosticon 11-0 PSA, DIAGNOSTIC 2.93 ng/mL Normal 0.0-4.0 Comment on above: Result Comment: This test was performed using the TPSA assay method for the [employer] chemistry system. Values obtained with different assay methods cannot be used interchangably. When changing PSA assays in the course of monitoring a patient, additional sequential testing should be carried out to confirm baseline values. Performed By: #### L 501.9940 #### Laboratory [address] [place], [address] Comprehensive Metabolic Prof ilon 03-27-2024 Albumin [Mass/Vol] 3.7 g/dL Normal 3.2-5.0 [facility] Comment on above: Order Comment: Order Date: 03/27/24 Order Info: 0786-1 - CMP Order Info: [id number] - LIPID Order Info: [id number] - MG Order Info: 3013 - TSH Performed By: #### L 501.9520, L500.4100, L501.5200, L500.4050 #### Laboratory [address] [place], [place], [address] Albumin/Globulin [Mass ratio] 1.1 {ratio} Normal 0.9-2.4 Comment on above: Order Comment: Order Date: 03/27/24 Order Info: 0786-1 - CMP Order Info: [id number] - LIPID Order Info: [id number] - MG Order Info: 3015-3 - TSH Performed By: #### L 501.9520, L500.4100, L501.5200, L500.4050 #### Laboratory [address] [place], [address] ALK P 62 U/L Normal 45-117 Comment on above: Order Comment: Order Date: 03/27/24 Order Info: 0786-1 - CMP Order Info: [id number] - LIPID Order Info: [id number] - MG Order Info: 3015-3 - TSH Performed By: #### L 501.9520, L500.4100, L501.5200, L500.4050 #### Laboratory [address] [place], [address] ALT [Catalytic activity/Vol] 22 U/L Normal 16-61 Comment on above: Order Comment: Order Date: 03/27/24 Order Info: 0786-1 - CMP Order Info: [id number] - LIPID Order Info: [id number] - MG Order Info: 3016-3 - TSH Performed By: #### L 501.9520, L500.4100, L501.5200, L500.4050 #### Laboratory [address] [place], [address] AST [Catalytic activity/Vol] 32 U/L Normal 15-37 Comment on above: Order Comment: Order Date: 03/27/24 Order Info: 0786-1 - CMP Order Info: [id number] - LIPID Order Info: [id number] - MG Order Info: 3016-3 - TSH Performed By: #### L 501.9520, L500.4100, L501.5200, L500.4050 #### Laboratory [address] [place], [address] Bilirubin [Mass/Vol] 0.50 mg/dL Normal 0.20-1.00 [facility] Comment on above: Order Comment: Order Date: 03/27/24 Order Info: 0786-1 - CMP Order Info: [id number] - LIPID Order Info: [id number] - MG Order Info: 3016-3 - TSH Result Comment: For patients on eltrombopag therapy, use of Dimension [place] TBIL is not recommended. Performed By: #### L 501.9520, L500.4100, L501.5200, L500.4050 #### Laboratory [address] [place], [address] BUN/CRE 18.4 RATIO Normal 10-20 Comment on above: Order Comment: Order Date: 03/27/24 Order Info: 0786-1 - CMP Order Info: [id number] - LIPID Order Info: [id number] - MG Order Info: 3015-3 - TSH Performed By: #### L 501.9520, L500.4100, L501.5200, L500.4050 #### Laboratory [address] [place], [address] CA,Total 9.2 mg/dL Normal 8.5-10.1 Comment on above: Order Comment: Order Date: 03/27/24 Order Info: [id number] - CMP Order Info: - LIPID Order Info: [id number] - MG Order Info: 3 - TSH Performed By: #### L 501.9520, L500.4100, L501.5200, L500.4050 #### Laboratory [address] [place], [address] Chloride [Moles/Vol] 110 mmol/L High 98-107 [facility] Comment on above: Order Comment: Order Date: 03/27/24 Order Info: [id number] - CMP Order Info: - LIPID Order Info: [id number] - MG Order Info: 3 - TSH Performed By: #### L 501.9520, L500.4100, L501.5200, L500.4050 #### Laboratory [address] [place], [address] CO2 [Moles/Vol] 26.0 mmol/L Normal 21.0-32.0 Comment on above: Order Comment: Order Date: 03/27/24 Order Info: 785-09 - CMP Order Info: [id number] - LIPID Order Info: [id number] - MG Order Info: 3015-3 - TSH Performed By: #### L 501.9520, L500.4100, L501.5200, L500.4050 #### Laboratory [address] [place], [address] Creatinine [Mass/Vol] 0.98 mg/dL Normal 0.70-1.30 [facility] Comment on above: Order Comment: Order Date: 03/27/24 Order Info: 785-1 - CMP Order Info: [id number] - LIPID Order Info: [id number] - MG Order Info: 3016-3 - TSH Result Comment: The validity of the calculated GFR GFRAA in patients over 70 years has not been determined. Clinical correlation is essential. Performed By: #### L 501.9520, L500.4100, L501.5200, L500.4050 #### Laboratory [address] [place], [address] EST GFR - AA 96 mL/min Normal >60 Comment on above: Order Comment: Order Date: 03/27/24 Order Info: 785- - CMP Order Info: [id number] - LIPID Order Info: [id number] - MG Order Info: 3016-3 - TSH Result Comment: Afri can Italian GFR Calc Performed By: #### L 501.9520, L500.4100, L501.5200, L500.4050 #### Laboratory [address] [place], [address] GAP 6 Normal 5-15 Comment on above: Order Comment: Order Date: 03/27/24 Order Info: 785-1 - CMP Order Info: [id number] - LIPID Order Info: [id number] - MG Order Info: 301-3 - TSH Performed By: #### L 501.9520, L500.4100, L501.5200, L500.4050 #### Laboratory [address] [place], [address] GFR/1.73 sq M.predicted among non-blacks MDRD (S/P/Bld) [Vol rate/Area] 80 mL/min/{1.73_m2} Normal >60 Comment on above: Order Comment: Order Date: 03/27/24 Order Info: 785-1 - CMP Order Info: [id number] - LIPID Order Info: [id number] - MG Order Info: 3015-3 - TSH Result Comment: Non- GFR Calc Performed By: #### L 501.9520, L500.4100, L501.5200, L500.4050 #### Laboratory [address] [place], [address] Globulin (S) [Mass/Vol] 3.3 g/dL Normal 2.2-4.2 Comment on above: Order Comment: Order Date: 03/27/24 Order Info: 785-1 - CMP Order Info: [id number] - LIPID Order Info: [id number] - MG Order Info: 3 - TSH Performed By: #### L 501.9520, L500.4100, L501.5200, L500.4050 #### Laboratory [address] [place], [address] Glucose [Mass/Vol] 86 mg/dL Normal 74-106 [facility] Comment on above: Order Comment: Order Date: 03/27/24 Order Info: 785-09 - CMP Order Info: [id number] - LIPID Order Info: [id number] - MG Order Info: 3015-11 - TSH Performed By: #### L 501.9520, L500.4100, L501.5200, L500.4050 #### Laboratory [address] [place], [address] Potassium [Moles/Vol] 4.2 mmol/L Normal 3.5-5.1 [facility] Comment on above: Order Comment: Order Date: 03/27/24 Order Info: 07-1 - CMP Order Info: [id number] - LIPID Order Info: [id number] - MG Order Info: 3 - TSH Performed By: #### L 501.9520, L500.4100, L501.5200, L500.4050 #### Laboratory [address] [place], [address] Sodium [Moles/Vol] 142 mmol/L Normal 136-145 [facility] Comment on above: Order Comment: Order Date: 03/27/24 Order Info: 785-1 - CMP Order Info: - LIPID Order Info: [id number] - MG Order Info: 301-3 - TSH Performed By: #### L 501.9520, L500.4100, L501.5200, L500.4050 #### Laboratory [address] [place], [address] T PROT 7.0 g/dL Normal 6.4-8.2 Comment on above: Order Comment: Order Date: 03/27/24 Order Info: [id number] - CMP Order Info: - LIPID Order Info: [id number] - MG Order Info: 3 - TSH Performed By: #### L 501.9520, L500.4100, L501.5200, L500.4050 #### Laboratory [address] [place], [address] Urea nitrogen [Mass/Vol] 18 mg/dL Normal 7-18 Comment on above: Order Comment: Order Date: 03/27/24 Order Info: 785-09 - CMP Order Info: [id number] - LIPID Order Info: [id number] - MG Order Info: 3015-3 - TSH Performed By: #### L 501.9520, L500.4100, L501.5200, L500.4050 #### Laboratory [address] [place], [address] Lipid Profileon 03-27-2024 Cholesterol [Mass/Vol] 114 mg/dL Normal 200 Comment on above: Order Comment: Order Date: 03/27/24 Order Info: 785-09 - CMP Order Info: [id number] - LIPID Order Info: [id number] - MG Order Info: 3016-3 - TSH Result Comment: <200 mg/dL Desirable 200-240 mg/dL Borderline >240 mg/dL High Risk Performed By: #### L 501.9520, L500.4100, L501.5200, L500.4050 #### Laboratory [address] [place], [address] Cholesterol in HDL [Mass/Vol] 52 mg/dL Normal Comment on above: Order Comment: Order Date: 03/27/24 Order Info: 785-1 - CMP Order Info: [id number] - LIPID Order Info: [id number] - MG Order Info: 3016-3 - TSH Result Comment: The drugs N-Acetylcysteine and Metamizole may falsely depress this assay. Reference Range HDL <40 mg/dL Low HDL Cholesterol HDL >or= 60 mg/dL High HDL Cholesterol Performed By: #### L 501.9520, L500.4100, L501.5200, L500.4050 #### Laboratory [address] [place], [address] Cholesterol in LDL [Mass/Vol] 43 mg/dL Normal 0-130 Comment on above: Order Comment: Order Date: 03/27/24 Order Info: 785-09 - CMP Order Info: [id number] - LIPID Order Info: [id number] - MG Order Info: 3016-3 - TSH Performed By: #### L 501.9520, L500.4100, L501.5200, L500.4050 #### Laboratory [address] [place], [address] Cholesterol in VLDL [Mass/Vol] 19 mg/dL Normal 5-40 Comment on above: Order Comment: Order Date: 03/27/24 Order Info: 785- - CMP Order Info: [id number] - LIPID Order Info: [id number] - MG Order Info: 3016-3 - TSH Performed By: #### L 501.9520, L500.4100, L501.5200, L500.4050 #### Laboratory [address] [place], [address] Triglyceride [Mass/Vol] 93 mg/dL Normal Comment on above: Order Comment: Order Date: 03/27/24 Order Info: [id number] - CMP Order Info: [id number] - LIPID Order Info: [id number] - MG Order Info: 3016-3 - TSH Result Comment: The drugs N-Acetylcysteine and Metamizole may falsely depress this assay. Serum Triglycerides Reference Interval Normal <150 mg/dL Borderline high 150 - 199 mg/dL High 200 - 499 mg/dL Very High > or = 500 mg/dL Performed By: #### L 501.9520, L500.4100, L501.5200, L500.4050 #### Laboratory [address] [place], [address] Magnesiumon 03-27-2024 Magnesium [Mass/Vol] 2.4 mg/dL Normal 1.6-2.6 [facility] Comment on above: Order Comment: Order Date: 03/27/24 Order Info: 0786- - CMP Order Info: [id number] - LIPID Order Info: [id number] - MG Order Info: 3016-3 - TSH Performed By: #### L 501.9520, L500.4100, L501.5200, L500.4050 #### Laboratory [address] [place], [address] Thyroid Stim Hormone (TSH)on 03-27-2024 TSH 1.27 uIU/mL Normal 0.358-3.74 Comment on above: Order Comment: CLEAN CATCH Performed By: #### L 400.0001 #### Laboratory [address] [place], [address] Urinalysis, Completeon 03-27 EPI,SQUAMOUS 0-5 SEEN Normal 0-5 Comment on above: Order Comment: CLEAN CATCH Performed By: #### L 400.0001 #### Laboratory [address] [place], [address] WBC 0-5 SEEN Normal 0-5 Comment on above: Order Comment: CLEAN CATCH Performed By: #### L 400.0001 #### Laboratory [address] [place], [address] BACTERIA 0 SEEN Normal None Seen Comment on above: Order Comment: CLEAN CATCH Performed By: #### L 400.0001 #### Laboratory [address] [place], [address] Mucus Ql (Urine sed) 0 SEEN Normal [facility] Comment on above: Order Comment: CLEAN CATCH Performed By: #### L 400.0001 #### Laboratory [address] [place], [address] RBC 0 SEEN Normal 0-5 Comment on above: Order Comment: CLEAN CATCH Performed By: #### L 400.0001 #### Laboratory [address] [place], [address] Cardiology Visit Reporton Cardiology Visit Report [facility] [address] [place] [address] OFFICE VISIT Date of Service: 10/11/23 MR#: [id number] Acct: [id number] Name: LEI MARTIN Rep #: [id number] : 1950 Provider: BEE Friedman Age/Sex: 73/M Location: [facility] [place] Status: Signed HPI HPI History of Present Illness Details: Lei Martin is a 73-year-old white male who presents for outpatient cardiovascular follow up for a history of CAD, non-ST segment elevation MO, status post LCx PTCA/stent, superimposed upon hyperlipidemia and hypertension. He does have INGRIS and does use his CPAP. Echocardiogram in 2019 demonstrated an ejection fraction of 60%. RVSP 43 mmHg. Pharmacologic nuclear stress test in Oct 2020 was negative for ischemia. From a cardiac standpoint, patient is doing well. He does not have any chest discomfort/heaviness/ti ghtness. His exercise tolerance is stable for his age. He does not have any worsening symptoms of shortness of breath. He feels that this is better than his last office visit. He denies any PND. He does not have any orthopnea. He does not have any symptoms of congestive heart failure. He does not have any palpitations that he is aware of. He does not have any lightheadedness or dizziness. He does not have any near-syncope or syncope. He does not have any lower extremity edema. He does not have any symptoms of claudication. 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 Is patient in pain?: No Allergies Sulfa (Sulfonamide Antibiotics) Allergy (Verified 10/11/23 11:15) Unknown Medications aspirin 81 mg tablet,delayed release 81 mg PO QDAY 09/08/17 [History Confirmed 10/11/23] nitroglycerin 0.4 mg sublingual tablet (Nitrostat) 0.4 mg sublingual Q5-15M PRN chest pain 09/08/17 [History Confirmed 10/11/23] albuterol sulfate 90 mcg/actuation aerosol inhaler (ProAir HFA) 2 puff inhalation Q6H PRN shortness of breath or wheezing #18 grams 12/18/19 [Rx Confirmed 10/11/23] metoprolol tartrate 50 mg tablet 25 mg PO BID 07/20/22 [History Confirmed 10/11/23] amlodipine 10 mg tablet 10 mg PO DAILY 06/14/23 [History Confirmed 10/11/23] tamsulosin 0.4 mg capsule 0.4 mg PO Q24H 06/14/23 [History Confirmed 10/11/23] lisinopril 20 mg tablet 20 mg PO BID #180 tabs 07/17/23 [Rx Confirmed 10/11/23] atorvastatin 20 mg tablet 20 mg PO QHS #90 tabs 09/05/23 [Rx Confirmed 10/11/23] omeprazole 40 mg capsule,delayed release See Rx Instructions .Route .COMPLEX #90 caps 09/25/23 [Rx Confirmed 10/11/23] PFSH Medical History Atherosclerotic heart disease of [place] coronary artery without angina pectoris Cardiology follow-up encounter CPAP (continuous positive airway pressure) dependence Dysphagia Dysphasia Dyspnea on exertion Essential hypertension High cholesterol History of echocardiogram History of left heart catheterization (LHC) ( 07/28/16) History of non-ST elevation myocardial infarction (NSTEMI) History of stress test Loss of hearing Non-smoker Obesity 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 INGRIS (obstructive sleep apnea) Personal history of colonic polyps Preoperative cardiovascular examination Presence of stent in coronary artery ( 2012) Pure hypercholesterolemia Shortness of breath on exertion Sleep apnea Wears glasses Wears hearing aid Wears partial dentures Wheeze Surgical History H/O shoulder surgery History of cardiac catheterization History of colonoscopy with polypectomy History of knee replacement procedure of right knee Hx of bilateral cataract extraction Presence of coronary angioplasty implant and graft Family History Father Myocardial infarction, Onset Age: 73 CAD (coronary artery disease) Social History Smoking Status: Never smoker second hand exposure: Yes alcohol intake: current alcohol intake frequency: a few times a month substance use type: does not use caffeine: Yes Type: carbonated beverages ROS Const Const: Negative for fatigue, weakness, fever(s) or headache(s) Eyes Eyes: Negative for blind spots, loss of peripheral vision or transient loss of vision ENT ENT: Negative for headache(s), dizziness, tinnitus, Nosebleed/epistaxis or balance problems Cardio Chest Pain: No Palpitations: No Edema: None Muscle aches with walking: None Resp Respiratory: Negative for SOB with activity, SOB at res (more content not included)... Normal Absolute lymphocyte countOrd ered By: Armida Alejandro on 09-20-2023 Lymphocytes Auto (Unsp spec) [#/Vol] 1.15 10*3/uL 0.83-4.51 Basophil percentageOrdered B y: Armida Alejandro on 09-20-2023 Basophils/100 WBC (Bld) 0.9 % 0-1 Bilirubin [Mass/Vol] 0.60 mg/dL 0.20-1.00 [facility] Comment on above: For patients on eltr ombopag therapy, use of Dimension [place] TBIL is not recommended. Chloride [Moles/Vol] 113 mmol/L 98-107 [facility] Cholesterol [Mass/Vol] 121 mg/dL <200 Comment on above: <200 mg/dL Desirable 200-240 mg/dL Borderline >240 mg/dL High Risk Eosinophils/100 WBC (Bld) 3.0 % 0-5 Glucose [Mass/Vol] 88 mg/dL 74-106 [facility] Neutrophils (Bld) [#/Vol] 4.5 10*3/uL 2.0-7.7 Neutrophils/100 WBC (Bld) 67.3 % 47-70 Potassium [Moles/Vol] 3.9 mmol/L 3.5-5.1 [facility] Protein [Mass/Vol] 6.9 g/dL 6.4-8.2 [facility] Sodium [Moles/Vol] 143 mmol/L 136-145 [facility] Triglyceride [Mass/Vol] 87 mg/dL <199 Comment on above: The drugs N-Acetylcy steine and Metamizole may falsely depress this assay.Serum Triglycerides Reference Interval Normal <150 mg/dL Borderline high 150 - 199 mg/dL High 200 - 499 mg/dL Very High > or = 500 mg/dL WBC (Bld) [#/Vol] 6.7 10*3/uL 4.4-11.0 [facility] Blood erythrocytes count (nu mber/volume)Ordered By: Armida Alejandro on 09-20-2023 RBC (Bld) [#/Vol] 4.29 10*6/uL 4.6-6.2 [facility] Blood hemoglobin measurement (mass/volume)Ordered By: Armida Alejandro on 09-20-2023 Hemoglobin (Bld) [Mass/Vol] 14.0 g/dL 13.0-16.5 Blood lymphocytes/100 leukoc ytesOrdered By: Armida Alejandro on 09-20-2023 Lymphocytes/100 WBC (Bld) 17.2 % 19-41 Blood monocytes/100 leukocyt esOrdered By: Armida Alejandro on 09-20-2023 Monocytes/100 WBC (Bld) 11.2 % 0-10 Blood platelet mean volumeOr dered By: Armida Alejandro on 09-20-2023 Platelet mean volume (Bld) [Entitic vol] 11.3 fL 6.2-12.0 Determination of erythrocyte mean corpuscular volume (MCV)Ordered By: Armida Alejandro on 09-20-2023 MCV (RBC) [Entitic vol] 92.3 fL 80-94 Hematocrit Auto (Bld) [Volum e fraction]Ordered By: Armida Alejandro on 09-20-2023 Hematocrit (Bld) [Volume fraction] 39.6 % 40-54 Laboratory - Chemistry and C hemistry - challengeOrdered By: Armida Alejandro on 09-20-2023 ALP [Catalytic activity/Vol] 52 U/L 45-117 ALT [Catalytic activity/Vol] 17 U/L 16-61 CO2 [Moles/Vol] 25.0 mmol/L 21.0-32.0 Globulin (S) [Mass/Vol] 3.2 g/dL 2.2-4.2 Urea nitrogen/Creatinine [Mass ratio] 20.0 mg/mg 10-20 Laboratory - Hematology and Cell countsOrdered By: Armida Alejandro on 09-20-2023 Erythrocyte distribution width (RBC) [Entitic vol] 44.4 fL 35.1-43.9 Erythrocyte distribution width (RBC) [Ratio] 13.1 % 11.6-14.6 Immature granulocytes/100 WBC (Bld) 0.400 % 0.0-0.9 Comment on above: IG% - Immature Granu locytes (promyelocytes, myelocytes and metamyelocytes) > 1% indicates that a LEFT SHIFT is Present. MCH (RBC) [Entitic mass] 32.6 pg 27.0-32.0 Nucleated RBC/100 WBC (Bld) [Ratio] 0 % 0-5 MCHC Auto (RBC) [Mass/Vol]Or dered By: Armida Alejandro on 09-20-2023 MCHC (RBC) [Mass/Vol] 35.4 g/dL 32-36 [facility] No Panel InformationOrdered By: Armida Alejandro on 09-20-2023 Estimated GFR (MDRD) Amer 76 mL/min >60 Comment on above: GFR Calc Estimated GFR (MDRD) Non-Af Amer 63 mL/min >60 Comment on above: Non- GFR Calc Platelets bldOrdered By: Amos Alejandro on 09-20-2023 Platelets (Bld) [#/Vol] 159 10*3/uL 150-450 Serum or plasma albumin vijaya urement (mass/volume)Ordered By: Armida Alejandro on 09-20-2023 Albumin [Mass/Vol] 3.7 g/dL 3.2-5.0 [facility] Serum or plasma albumin/glob ulin mass ratioOrdered By: Armida Alejandro on 09-20-2023 Albumin/Globulin [Mass ratio] 1.2 {ratio} 0.9-2.4 Serum or plasma calcium vijaya urement (mass/volume)Ordered By: Armida Alejandro on 09-20-2023 Calcium [Mass/Vol] 9.1 mg/dL 8.5-10.1 [facility] Serum or plasma cholesterol in HDL measurement (mass/volume)Ordered By: Armida Alejandro on 09-20-2023 Cholesterol in HDL [Mass/Vol] 48 mg/dL >40 Comment on above: The drugs N-Acetylcy steine and Metamizole may falsely depress this assay. Reference Range HDL <40 mg/dL Low HDL Cholesterol HDL >or= 60 mg/dL High HDL Cholesterol Serum or plasma cholesterol in VLDL measurement (mass/volume)Ordered By: Armida Alejandro on 09-20-2023 Cholesterol in VLDL [Mass/Vol] 17 mg/dL 5-40 Serum or plasma creatinine m easurement (mass/volume)Ordered By: Armida Alejandro on 09-20-2023 Creatinine [Mass/Vol] 1.20 mg/dL 0.70-1.30 [facility] Comment on above: The validity of the calculated GFR & GFRAA in patients over 70 years has not been determined. Clinical correlation is essential. Serum or plasma low density lipoprotein (LDL) cholesterol measurement (mass/volume)Ordered By: Armida Alejandro on 09-20-2023 Cholesterol in LDL [Mass/Vol] 56 mg/dL 0-130 Serum or plasma urea nitroge n measurement (mass/volume)Ordered By: Armida Alejandro on 09-20-2023 Urea nitrogen [Mass/Vol] 24 mg/dL 7-18 Thin prep Papanicolaou smear with manual screeningOrdered By: Armida Alejandro on 09-20-2023 Thin prep Papanicolaou smear with manual screening 19 U/L 15-37 Thin prep Papanicolaou smear with manual screening 5 5-15 No Panel InformationOrdered By: Taco Hanson on 06-26-2023 Prostate Specific Antigen Screen 3.21 ng/mL 0.00-4.00 Comment on above: This test was perfor med using the TPSA assay method for the[employer] chemistry system. Values obtained with differentassay methods cannot be used interchangably.When changing PSA assays in the course of monitoring apatient, additional sequential testing should be carriedout to confirm baseline values. No Panel InformationOrdered By: Armida Alejandro on 03-22-2023 Prostate Specific Antigen Screen 4.24 ng/mL 0.00-4.00 Comment on above: This test was perfor med using the TPSA assay method for the[employer] chemistry system. Values obtained with differentassay methods cannot be used interchangably.When changing PSA assays in the course of monitoring apatient, additional sequential testing should be carriedout to confirm baseline values. Culture, urineOrdered By: Dr Jayro Alejandro on 12-30-2022 Bacteria identified Cx Nom (U) Enterococcus faecalis Absolute lymphocyte countOrd ered By: Dr. Alejandro on 12-28-2022 Lymphocytes Auto (Unsp spec) [#/Vol] 1.44 10*3/uL 0.83-4.51 Basophil percentageOrdered B y: Dr. Alejandro on 12-28-2022 Basophil percentage < 0.9 mg/dL 0.70-1.30 [facility] Basophils/100 WBC (Bld) 0.7 % 0-1 Chloride [Moles/Vol] 110 mmol/L 98-107 [facility] Eosinophils/100 WBC (Bld) 3.0 % 0-5 Glucose [Mass/Vol] 107 mg/dL 74-106 [facility] Comment on above: Fasting Glucose resu lt from 100 to 125 mg/dL suggests IMPAIRED HOMEOSTASIS per A.D.A. criteria. Neutrophils (Bld) [#/Vol] 7.2 10*3/uL 2.0-7.7 Neutrophils/100 WBC (Bld) 71.6 % 47-70 Potassium [Moles/Vol] 4.0 mmol/L 3.5-5.1 [facility] Sodium [Moles/Vol] 140 mmol/L 136-145 [facility] WBC (Bld) [#/Vol] 10.1 10*3/uL 4.4-11.0 [facility] Blood erythrocytes count (nu mber/volume)Ordered By: Dr. Alejandro on 12-28-2022 RBC (Bld) [#/Vol] 4.53 10*6/uL 4.6-6.2 [facility] Blood hemoglobin measurement (mass/volume)Ordered By: Dr. Alejandro on 12-28-2022 Hemoglobin (Bld) [Mass/Vol] 14.4 g/dL 13.0-16.5 Blood lymphocytes/100 leukoc ytesOrdered By: Dr. Alejandro on 12-28-2022 Lymphocytes/100 WBC (Bld) 14.3 % 19-41 Blood monocytes/100 leukocyt esOrdered By: Dr. Alejandro on 12-28-2022 Monocytes/100 WBC (Bld) 9.8 % 0-10 Blood platelet mean volumeOr dered By: Dr. Alejandro on 12-28-2022 Platelet mean volume (Bld) [Entitic vol] 11.7 fL 6.2-12.0 Determination of erythrocyte mean corpuscular volume (MCV)Ordered By: Dr. Alejandro on 12-28-2022 MCV (RBC) [Entitic vol] 92.9 fL 80-94 Hematocrit Auto (Bld) [Volum e fraction]Ordered By: Dr. Alejandro on 12-28-2022 Hematocrit (Bld) [Volume fraction] 42.1 % 40-54 Laboratory - Chemistry and C hemistry - challengeOrdered By: Dr. Alejandro on 12-28-2022 CO2 [Moles/Vol] 26.0 mmol/L 21.0-32.0 Urea nitrogen/Creatinine [Mass ratio] 21.8 mg/mg 10-20 Laboratory - Hematology and Cell countsOrdered By: Dr. Alejandro on 12-28-2022 Erythrocyte distribution width (RBC) [Entitic vol] 46.4 fL 35.1-43.9 Erythrocyte distribution width (RBC) [Ratio] 13.6 % 11.6-14.6 Immature granulocytes/100 WBC (Bld) 0.600 % 0.0-0.9 Comment on above: IG% - Immature Granu locytes (promyelocytes, myelocytes and metamyelocytes) > 1% indicates that a LEFT SHIFT is Present. MCH (RBC) [Entitic mass] 31.8 pg 27.0-32.0 Nucleated RBC/100 WBC (Bld) [Ratio] 0 % 0-5 MCHC Auto (RBC) [Mass/Vol]Or dered By: Dr. Alejandro on 12-28-2022 MCHC (RBC) [Mass/Vol] 34.2 g/dL 32-36 [facility] [facility] No Panel InformationOrdered By: Dr. Alejandro on 12-28-2022 Bedside Estimated GFR (eGFR) > 60.0000 mL/min >60 Estimated GFR (MDRD) Amer 104 mL/min >60 Comment on above: GFR Calc Estimated GFR (MDRD) Non-Af Amer 86 mL/min >60 Comment on above: Non- GFR Calc Platelets bldOrdered By: Dr. Alejandro on 12-28-2022 Platelets (Bld) [#/Vol] 161 10*3/uL 150-450 Serum or plasma calcium vijaya urement (mass/volume)Ordered By: Dr. Alejandro on 12-28-2022 Calcium [Mass/Vol] 9.1 mg/dL 8.5-10.1 [facility] Serum or plasma creatinine m easurement (mass/volume)Ordered By: Dr. Alejandro on 12-28-2022 Creatinine [Mass/Vol] 0.92 mg/dL 0.70-1.30 [facility] Comment on above: The validity of the calculated GFR & GFRAA in patients over 70 years has not been determined. Clinical correlation is essential. Serum or plasma urea nitroge n measurement (mass/volume)Ordered By: Dr. Alejandro on 12-28-2022 Urea nitrogen [Mass/Vol] 20 mg/dL 7-18 Thin prep Papanicolaou smear with manual screeningOrdered By: Dr. Alejandro on 12-28-2022 Thin prep Papanicolaou smear with manual screening 4 5-15 Culture, urineOrdered By: Amy Alejandro on 12-27-2022 Bacteria identified Cx Nom (U) Enterococcus faecalis Absolute lymphocyte countOrd ered By: Dr. Alejandro on 09-27-2022 Lymphocytes Auto (Unsp spec) [#/Vol] 1.32 10*3/uL 0.83-4.51 Basophil percentageOrdered B y: Dr. Alejandro on 09-27-2022 Basophils/100 WBC (Bld) 0.8 % 0-1 Bilirubin [Mass/Vol] 0.60 mg/dL 0.20-1.00 [facility] Comment on above: For patients on eltr ombopag therapy, use of Dimension [place] TBIL is not recommended. Chloride [Moles/Vol] 112 mmol/L 98-107 [facility] Cholesterol [Mass/Vol] 106 mg/dL <200 Comment on above: <200 mg/dL Desirable 200-240 mg/dL Borderline >240 mg/dL High Risk Eosinophils/100 WBC (Bld) 3.8 % 0-5 Glucose [Mass/Vol] 96 mg/dL 74-106 [facility] Neutrophils (Bld) [#/Vol] 5.1 10*3/uL 2.0-7.7 Neutrophils/100 WBC (Bld) 66.9 % 47-70 Potassium [Moles/Vol] 4.1 mmol/L 3.5-5.1 [facility] Protein [Mass/Vol] 6.9 g/dL 6.4-8.2 [facility] Sodium [Moles/Vol] 142 mmol/L 136-145 [facility] Triglyceride [Mass/Vol] 92 mg/dL <199 Comment on above: The drugs N-Acetylcy steine and Metamizole may falsely depress this assay.Serum Triglycerides Reference Interval Normal <150 mg/dL Borderline high 150 - 199 mg/dL High 200 - 499 mg/dL Very High > or = 500 mg/dL WBC (Bld) [#/Vol] 7.7 10*3/uL 4.4-11.0 [facility] Blood erythrocytes count (nu mber/volume)Ordered By: Dr. Alejandro on 09-27-2022 RBC (Bld) [#/Vol] 4.49 10*6/uL 4.6-6.2 [facility] Blood hemoglobin measurement (mass/volume)Ordered By: Dr. Alejandro on 09-27-2022 Hemoglobin (Bld) [Mass/Vol] 14.3 g/dL 13.0-16.5 Blood lymphocytes/100 leukoc ytesOrdered By: Dr. Alejandro on 09-27-2022 Lymphocytes/100 WBC (Bld) 17.2 % 19-41 Blood monocytes/100 leukocyt esOrdered By: Dr. Alejandro on 09-27-2022 Monocytes/100 WBC (Bld) 11.0 % 0-10 Blood platelet mean volumeOr dered By: Dr. Alejandro on 09-27-2022 Platelet mean volume (Bld) [Entitic vol] 11.4 fL 6.2-12.0 Determination of erythrocyte mean corpuscular volume (MCV)Ordered By: Dr. Alejandro on 09-27-2022 MCV (RBC) [Entitic vol] 91.5 fL 80-94 Hematocrit Auto (Bld) [Volum e fraction]Ordered By: Dr. Alejandro on 09-27-2022 Hematocrit (Bld) [Volume fraction] 41.1 % 40-54 Laboratory - Chemistry and C hemistry - challengeOrdered By: Dr. Alejandro on 09-27-2022 ALP [Catalytic activity/Vol] 67 U/L 45-117 ALT [Catalytic activity/Vol] 15 U/L 16-61 CO2 [Moles/Vol] 25.0 mmol/L 21.0-32.0 Globulin (S) [Mass/Vol] 3.0 g/dL 2.2-4.2 Urea nitrogen/Creatinine [Mass ratio] 22.3 mg/mg 10-20 Laboratory - Hematology and Cell countsOrdered By: Dr. Alejandro on 09-27-2022 Erythrocyte distribution width (RBC) [Entitic vol] 45.2 fL 35.1-43.9 Erythrocyte distribution width (RBC) [Ratio] 13.2 % 11.6-14.6 Immature granulocytes/100 WBC (Bld) 0.300 % 0.0-0.9 Comment on above: IG% - Immature Granu locytes (promyelocytes, myelocytes and metamyelocytes) > 1% indicates that a LEFT SHIFT is Present. MCH (RBC) [Entitic mass] 31.8 pg 27.0-32.0 Nucleated RBC/100 WBC (Bld) [Ratio] 0 % 0-5 MCHC Auto (RBC) [Mass/Vol]Or dered By: Dr. Alejandro on 09-27-2022 MCHC (RBC) [Mass/Vol] 34.8 g/dL 32-36 [facility] No Panel InformationOrdered By: Dr. Alejandro on 09-27-2022 Estimated GFR (MDRD) Amer 101 mL/min >60 Comment on above: GFR Calc Estimated GFR (MDRD) Non-Af Amer 84 mL/min >60 Comment on above: Non- GFR Calc Platelets bldOrdered By: Dr. Alejandro on 09-27-2022 Platelets (Bld) [#/Vol] 180 10*3/uL 150-450 Serum or plasma albumin vijaya urement (mass/volume)Ordered By: Dr. Alejandro on 09-27-2022 Albumin [Mass/Vol] 3.9 g/dL 3.2-5.0 [facility] Serum or plasma albumin/glob ulin mass ratioOrdered By: Dr. Alejandro on 09-27-2022 Albumin/Globulin [Mass ratio] 1.3 {ratio} 0.9-2.4 Serum or plasma calcium vijaya urement (mass/volume)Ordered By: Dr. Alejandro on 09-27-2022 Calcium [Mass/Vol] 8.9 mg/dL 8.5-10.1 [facility] Serum or plasma cholesterol in HDL measurement (mass/volume)Ordered By: Dr. Alejandro on 09-27-2022 Cholesterol in HDL [Mass/Vol] 45 mg/dL >40 Comment on above: The drugs N-Acetylcy steine and Metamizole may falsely depress this assay. Reference Range HDL <40 mg/dL Low HDL Cholesterol HDL >or= 60 mg/dL High HDL Cholesterol Serum or plasma cholesterol in VLDL measurement (mass/volume)Ordered By: Dr. Alejandro on 09-27-2022 Cholesterol in VLDL [Mass/Vol] 18 mg/dL 5-40 Serum or plasma creatinine m easurement (mass/volume)Ordered By: Dr. Alejandro on 09-27-2022 Creatinine [Mass/Vol] 0.94 mg/dL 0.70-1.30 [facility] Comment on above: The validity of the calculated GFR & GFRAA in patients over 70 years has not been determined. Clinical correlation is essential. Serum or plasma low density lipoprotein (LDL) cholesterol measurement (mass/volume)Ordered By: Dr. Alejandro on 09-27-2022 Cholesterol in LDL [Mass/Vol] 43 mg/dL 0-130 Serum or plasma urea nitroge n measurement (mass/volume)Ordered By: Dr. Alejandro on 09-27-2022 Urea nitrogen [Mass/Vol] 21 mg/dL 7-18 Thin prep Papanicolaou smear with manual screeningOrdered By: Dr. Alejandro on 09-27-2022 Thin prep Papanicolaou smear with manual screening 20 U/L 15-37 Thin prep Papanicolaou smear with manual screening 5 5-15 Absolute lymphocyte counton 05-31-2022 Lymphocytes Auto (Unsp spec) [#/Vol] 1.46 10*3/uL 0.83-4.51 Work Phone: Basophil percentageon 2021 Basophils/100 WBC (Bld) 0.8 % 0-1 Work Phone: Bilirubin [Mass/Vol] 0.40 mg/dL 0.20-1.00 [facility] Work Phone: Comment on above: For patients on eltr ombopag therapy, use of Dimension [place] TBIL is not recommended. Chloride [Moles/Vol] 110 mmol/L 98-107 [facility] Work Phone: Cholesterol [Mass/Vol] 101 mg/dL <200 Work Phone: Comment on above: <200 mg/dL Desirable 200-240 mg/dL Borderline >240 mg/dL High Risk Eosinophils/100 WBC (Bld) 4.4 % 0-5 Work Phone: Glucose [Mass/Vol] 116 mg/dL 74-106 [facility] Work Phone: Comment on above: Fasting Glucose resu lt from 100 to 125 mg/dL suggests IMPAIRED HOMEOSTASIS per A.D.A. criteria. Neutrophils (Bld) [#/Vol] 4.0 10*3/uL 2.0-7.7 Work Phone: Neutrophils/100 WBC (Bld) 61.5 % 47-70 Work Phone: Potassium [Moles/Vol] 4.1 mmol/L 3.5-5.1 [facility] Work Phone: Protein [Mass/Vol] 7.0 g/dL 6.4-8.2 [facility] Work Phone: Sodium [Moles/Vol] 143 mmol/L 136-145 [facility] Work Phone: Triglyceride [Mass/Vol] 115 mg/dL <199 Work Phone: Comment on above: The drugs N-Acetylcy steine and Metamizole may falsely depress this assay.Serum Triglycerides Reference Interval Normal <150 mg/dL Borderline high 150 - 199 mg/dL High 200 - 499 mg/dL Very High > or = 500 mg/dL WBC (Bld) [#/Vol] 6.4 10*3/uL 4.4-11.0 [facility] Work Phone: [phone] Blood erythrocytes count (nu mber/volume)on 05-31-2022 RBC (Bld) [#/Vol] 4.30 10*6/uL 4.6-6.2 [facility] Work Phone: Blood hemoglobin measurement (mass/volume)on 05-31-2022 Hemoglobin (Bld) [Mass/Vol] 13.7 g/dL 13.0-16.5 Work Phone: Blood lymphocytes/100 leukoc yteson 05-31-2022 Lymphocytes/100 WBC (Bld) 22.7 % 19-41 Work Phone: [phone] Blood monocytes/100 leukocyt eson 05-31-2022 Monocytes/100 WBC (Bld) 10.3 % 0-10 Work Phone: Blood platelet mean volumeon 05-31-2022 Platelet mean volume (Bld) [Entitic vol] 11.4 fL 6.2-12.0 Work Phone: [phone] Determination of erythrocyte mean corpuscular volume (MCV)on 05-31-2022 MCV (RBC) [Entitic vol] 93.3 fL 80-94 Work Phone: [phone] Hematocrit Auto (Bld) [Volum e fraction]on 05-31-2022 Hematocrit (Bld) [Volume fraction] 40.1 % 40-54 Work Phone: Laboratory - Chemistry and C hemistry - challengeon 05-31-2022 ALP [Catalytic activity/Vol] 67 U/L 45-117 Work Phone: [phone] ALT [Catalytic activity/Vol] 13 U/L 16-61 Work Phone: [phone] CO2 [Moles/Vol] 26.0 mmol/L 21.0-32.0 Work Phone: [phone] Globulin (S) [Mass/Vol] 3.4 g/dL 2.2-4.2 Work Phone: [phone] Urea nitrogen/Creatinine [Mass ratio] 21.2 mg/mg 10-20 Work Phone: [phone] Laboratory - Hematology and Cell countson 05-31-2022 Erythrocyte distribution width (RBC) [Entitic vol] 44.7 fL 35.1-43.9 Work Phone: [phone] Erythrocyte distribution width (RBC) [Ratio] 13.1 % 11.6-14.6 Work Phone: [phone] Immature granulocytes/100 WBC (Bld) 0.300 % 0.0-0.9 Work Phone: [phone] Comment on above: IG% - Immature Granu locytes (promyelocytes, myelocytes and metamyelocytes) > 1% indicates that a LEFT SHIFT is Present. MCH (RBC) [Entitic mass] 31.9 pg 27.0-32.0 Work Phone: [phone] Nucleated RBC/100 WBC (Bld) [Ratio] 0 % 0-5 Work Phone: [phone] MCHC Auto (RBC) [Mass/Vol]on 05-31-2022 MCHC (RBC) [Mass/Vol] 34.2 g/dL 32-36 [facility] Work Phone: [phone] Panel Informationon 05-31 Estimated GFR (MDRD) Amer 114 mL/min >60 Work Phone: [phone] Comment on above: GFR Calc Estimated GFR (MDRD) Non-Af Amer 94 mL/min >60 Work Phone: Comment on above: Non- GFR Calc Platelets bldon 05-31-2022 Platelets (Bld) [#/Vol] 175 10*3/uL 150-450 Work Phone: Serum or plasma albumin vijaya urement (mass/volume)on 05-31-2022 Albumin [Mass/Vol] 3.6 g/dL 3.2-5.0 [facility] Work Phone: Serum or plasma albumin/glob ulin mass ratioon 05-31-2022 Albumin/Globulin [Mass ratio] 1.1 {ratio} 0.9-2.4 Work Phone: Serum or plasma calcium vijaya urement (mass/volume)on 05-31-2022 Calcium [Mass/Vol] 9.0 mg/dL 8.5-10.1 [facility] Work Phone: Serum or plasma cholesterol in HDL measurement (mass/volume)on 05-31-2022 Cholesterol in HDL [Mass/Vol] 43 mg/dL >40 Work Phone: Comment on above: The drugs N-Acetylcy steine and Metamizole may falsely depress this assay. Reference Range HDL <40 mg/dL Low HDL Cholesterol HDL >or= 60 mg/dL High HDL Cholesterol Serum or plasma cholesterol in VLDL measurement (mass/volume)on 05-31-2022 Cholesterol in VLDL [Mass/Vol] 23 mg/dL 5-40 Work Phone: [phone] Serum or plasma creatinine m easurement (mass/volume)on 05-31-2022 Creatinine [Mass/Vol] 0.85 mg/dL 0.70-1.30 [facility] Work Phone: Comment on above: The validity of the calculated GFR & GFRAA in patients over 70 years has not been determined. Clinical correlation is essential. Serum or plasma low density lipoprotein (LDL) cholesterol measurement (mass/volume)on 05-31-2022 Cholesterol in LDL [Mass/Vol] 35 mg/dL 0-130 Work Phone: Serum or plasma urea nitroge n measurement (mass/volume)on 05-31-2022 Urea nitrogen [Mass/Vol] 18 mg/dL 7-18 Work Phone: [phone] Thin prep Papanicolaou smear with manual screeningon 05-31-2022 Thin prep Papanicolaou smear with manual screening 19 U/L 15-37 Work Phone: [phone] Thin prep Papanicolaou smear with manual screening 7 5-15 Work Phone: [phone] Whole blood hemoglobin A1c/t otal hemoglobin ratio (mass fraction)on 05-31-2022 HbA1c (Bld) [Mass fraction] 5.4 % 3.8-5.6 Work Phone: Comment on above: Normal < 5.7 % Predi abetic 5.7 - 6.4 % Diabetic >or= 6.5 % Please note range changes. .Auto Diffon 03-02-2022 Basophil, Absolute 0.1 10 3/mcL Normal 0.0-0.2 [facility] ([place]) Comment on above: Performed By: #### B MP, GFR #### [address] [address] Basophils/100 WBC (Bld) 0.6 % Normal 0.0-2.5 Replaced By [facility] ([place]) Comment on above: Performed By: #### B MP, GFR #### [address] [address] Eosinophil, Absolute 0.0 10 3/mcL Normal 0.0-0.4 [facility] ([place]) Comment on above: Performed By: #### B MP, GFR #### [address] [address] Eosinophils/100 WBC (Bld) 0.0 % Normal 0.0-7.0 Replaced By [facility] ([place]) Comment on above: Performed By: #### B MP, GFR #### [address] [address] Lymphocyte, Absolute 0.8 10 3/mcL Normal 0.8-3.9 [facility] ([place]) Comment on above: Performed By: #### B MP, GFR #### [address] [address] Lymphocytes/100 WBC (Bld) 5.2 % Low 10.0-50.0 Replaced By [facility] ([place]) Comment on above: Performed By: #### B MP, GFR #### [address] [address] Monocyte, Absolute 0.8 10 3/mcL Normal 0.2-1.0 [facility] ([place]) Comment on above: Performed By: #### B MP, GFR #### [address] [address] Monocytes/100 WBC (Bld) 4.7 % Normal 1.7-13.0 Replaced By [facility] ([place]) Comment on above: Performed By: #### B MP, GFR #### [address] [address] Neutrophils/100 WBC (Bld) 89.5 % High 37.0-80.0 Replaced By [facility] ([place]) Comment on above: Performed By: #### B MP, GFR #### [address] [address] .GFRon 03-02-2022 GFR 71 ml/min/1.73sqm Normal Replaced By [facility] ([place]) Comment on above: Result Comment: GFR Population mean for , Non- Americans Ages 20-29 = 116 mL/min/1.73 sq.m. Ages 30-39 = 107 mL/min/1.73 sq.m. Ages 40-49 = 99 mL/min/1.73 sq.m. Ages 50-59 = 93 mL/min/1.73 sq.m. Ages 60-69 = 85 mL/min/1.73 sq.m. Ages 70+ = 75 mL/min/1.73 sq.m. Chronic Kidney Disease: Less than 60 mL/min/1.73 square meters End Stage Renal Disease: Less than 15 mL/min/1.73 square meters Performed By: #### B MP, GFR #### [address] [address] GFR Non- 58 ml/min/1.73sqm Normal Replaced By [facility] ([place]) Comment on above: Result Comment: GFR Population mean for , Non- Americans Ages 20-29 = 116 mL/min/1.73 sq.m. Ages 30-39 = 107 mL/min/1.73 sq.m. Ages 40-49 = 99 mL/min/1.73 sq.m. Ages 50-59 = 93 mL/min/1.73 sq.m. Ages 60-69 = 85 mL/min/1.73 sq.m. Ages 70+ = 75 mL/min/1.73 sq.m. Chronic Kidney Disease: Less than 60 mL/min/1.73 square meters End Stage Renal Disease: Less than 15 mL/min/1.73 square meters Performed By: #### B MP, GFR #### [address] [address] .MDWon 03-02-2022 Monocyte Distribution Width Not performed Normal 0.00-20.00 Replaced By [facility] ([place]) Comment on above: Result Comment: MDW testing performed only on adult ER patients between the ages of 18-89 years. Performed By: #### B MP, GFR #### [address] [address] .NEUABSon 03-02-2022 Neutrophil, Absolute 14.3 10 3/mcL High 2.9-6.2 [facility] ([place]) Comment on above: Performed By: #### B MP, GFR #### [address] [address] ABIDon 03-02-2022 Antibody ID Invalid Interpretation Code Replaced By [facility] ([place]) Comment on above: Order Comment: Order ed by Discern Result Comment: Anti -D Anti-C Performed By: #### B MP, GFR #### [address] [address] AUTOCon 03-02-2022 Auto Control Negative Normal Replaced By [facility] ([place]) Comment on above: Order Comment: Order ed by Discern Performed By: #### B MP, GFR #### [address] [address] BMPon 03-02-2022 BUN/Creatinine Ratio 18 ratio Normal 7-27 [facility] ([place]) Comment on above: Performed By: #### B MP, GFR #### [address] [address] Calcium [Mass/Vol] 8.7 mg/dL Normal 8.4-10.2 [facility] ([place]) Comment on above: Performed By: #### B MP, GFR #### [address] [address] Chloride [Moles/Vol] 103 mmol/L Normal 98-107 [facility] ([place]) Comment on above: Performed By: #### B MP, GFR #### [address] [address] CO2 [Moles/Vol] 24 mmol/L Normal 23-31 Replaced By [facility] ([place]) Comment on above: Performed By: #### B MP, GFR #### [address] [address] Creatinine [Mass/Vol] 1.22 mg/dL Normal 0.70-1.30 [facility] ([place]) Comment on above: Performed By: #### B MP, GFR #### [address] [address] Electrolyte Balance 10.0 mEq/L Normal 4.0-15.0 [facility] ([place]) Comment on above: Performed By: #### B MP, GFR #### [address] [address] Glucose [Mass/Vol] 174 mg/dL High 83-110 [facility] ([place]) Comment on above: Performed By: #### B MP, GFR #### [address] [address] Potassium [Moles/Vol] 4.1 mmol/L Normal 3.5-5.1 [facility] ([place]) Comment on above: Performed By: #### B MP, GFR #### [address] [address] Sodium [Moles/Vol] 137 mmol/L Normal 136-145 [facility] ([place]) Comment on above: Performed By: #### B MP, GFR #### [address] [address] Urea nitrogen [Mass/Vol] 22 mg/dL High 7-18 Replaced By [facility] ([place] Comment on above: Performed By: #### B MP, GFR #### [address] [address] CBCon 03-02-2022 Erythrocyte distribution width (RBC) [Ratio] 12.9 % Normal 11.5-14.5 Replaced By [facility] ([place] Comment on above: Performed By: #### B MP, GFR #### [address] [address] Hematocrit (Bld) [Volume fraction] 33.4 % Low 42.0-52.0 Replaced By [facility] ([place]) Comment on above: Performed By: #### B MP, GFR #### [address] [address] Hgb 11.8 G/dL Low 14.0-18.0 Replaced By [facility] ([place]) Comment on above: Performed By: #### B MP, GFR #### [address] [address] MCH (RBC) [Entitic mass] 33.0 pg High 27.0-31.2 Replaced By [facility] ([place]) Comment on above: Performed By: #### B MP, GFR #### [address] [address] MCHC 35.5 G/dL High 31.8-35.4 Replaced By [facility] ([place] Comment on above: Performed By: #### B MP, GFR #### [address] [address] MCV (RBC) [Entitic vol] 93.0 fL Normal 80.0-94.0 Replaced By [facility] ([place]) Comment on above: Performed By: #### B MP, GFR #### [address] [address] Platelet 160 10 3/mcL Normal 130-400 Replaced By [facility] ([place] Comment on above: Performed By: #### B MP, GFR #### [address] [address] Platelet mean volume (Bld) [Entitic vol] 8.5 fL Normal 7.4-10.4 Replaced By [facility] ([place]) Comment on above: Performed By: #### B MP, GFR #### [address] [address] RBC 3.59 10 6/mcL Low 4.04-6.13 Replaced By [facility] ([place]) Comment on above: Performed By: #### B MP, GFR #### [address] [address] WBC 15.9 10 3/mcL High 4.6-10.8 Replaced By [facility] ([place]) Comment on above: Performed By: #### B MP, GFR #### [address] [address] Gel ABOon 03-01-2022 ABO/Rh Interp Negative Invalid Interpretation Code Replaced By [facility] ([place]) Comment on above: Performed By: #### B MP, GFR #### [address] [address] Gel ABSon 03-01-2022 Antibody Screen Gel Positive Normal [facility] ([place]) Comment on above: Performed By: #### B MP, GFR #### [address] [address] XR KNEE 1 OR 2 VIEWS RIGHTon 03-01-2022 XR KNEE 1 OR 2 VIEWS RIGHT ORIGINAL HISTORY: Arthroplasty COMPARISON: CT 11 days previously FINDINGS: There is an arthroplasty in near anatomic alignment. There is no radiographic evidence of loosening or failure of hardware. There is gas in the joint and overlying soft tissues and there are skin kelsy. IMPRESSION: Right knee arthroplasty with immediate postoperative changes. Interpreted by: Kenneth Carr MD Preliminary Report By: Kenneth Carr MD Electronically signed By Kenneth Carr MD Dictated Date: 03/01/2022 1:04:14 PM Prelim Date: 03/01/2022 1:04:54 PM Sign Date: 03/01/2022 1:04:54 PM Ordering Provider: ERNA ROA Normal Replaced By [facility] ([place] AGTYon 02-08-2022 Antigen Type C- Invalid Interpretation Code [facility]) Comment on above: Performed By: #### A GTY ####[place] [address] ABIDon 02-05-2022 Antibody ID Invalid Interpretation Code [facility]) Comment on above: Order Comment: Order ed by Discern Result Comment: Anti -C Anti-D Performed By: #### B MP, GFR #### [address] [address] AUTOCon 02-05-2022 Auto Control Negative Normal [facility]) Comment on above: Order Comment: Order ed by Discern Performed By: #### B MP, GFR #### [address] [address] Gel ABSon 02-05-2022 Antibody Screen Gel Positive Normal [facility] ([place]) Comment on above: Performed By: #### B MP, GFR #### [address] [address] .Auto Diffon 02-04-2022 Basophil, Absolute 0.1 10 3/mcL Normal 0.0-0.2 [facility]) Comment on above: Performed By: #### B MP, GFR #### [address] [address] Basophils/100 WBC (Bld) 0.9 % Normal 0.0-2.5 Replaced By [facility] ([place]) Comment on above: Performed By: #### B MP, GFR #### [address] [address] Eosinophil, Absolute 0.2 10 3/mcL Normal 0.0-0.4 [facility] ([place]) Comment on above: Performed By: #### B MP, GFR #### [address] [address] Eosinophils/100 WBC (Bld) 3.3 % Normal 0.0-7.0 Replaced By [facility] ([place]) Comment on above: Performed By: #### B MP, GFR #### [address] [address] Lymphocyte, Absolute 1.4 10 3/mcL Normal 0.8-3.9 [facility] ([place]) Comment on above: Performed By: #### B MP, GFR #### [address] [address] Lymphocytes/100 WBC (Bld) 19.7 % Normal 10.0-50.0 Replaced By [facility] ([place]) Comment on above: Performed By: #### B MP, GFR #### [address] [address] Monocyte, Absolute 0.7 10 3/mcL Normal 0.2-1.0 [facility] ([place]) Comment on above: Performed By: #### B MP, GFR #### [address] [address] Monocytes/100 WBC (Bld) 9.7 % Normal 1.7-13.0 Replaced By [facility] ([place]) Comment on above: Performed By: #### B MP, GFR #### [address] [address] Neutrophils/100 WBC (Bld) 66.4 % Normal 37.0-80.0 Replaced By [facility] ([place]) Comment on above: Performed By: #### B MP, GFR #### [address] [address] .GFRon 02-04-2022 GFR Non- 109 ml/min/1.73sqm Normal Replaced By [facility] ([place]) Comment on above: Result Comment: GFR Population mean for , Non- Americans Ages 20-29 = 116 mL/min/1.73 sq.m. Ages 30-39 = 107 mL/min/1.73 sq.m. Ages 40-49 = 99 mL/min/1.73 sq.m. Ages 50-59 = 93 mL/min/1.73 sq.m. Ages 60-69 = 85 mL/min/1.73 sq.m. Ages 70+ = 75 mL/min/1.73 sq.m. Chronic Kidney Disease: Less than 60 mL/min/1.73 square meters End Stage Renal Disease: Less than 15 mL/min/1.73 square meters Performed By: #### B MP, GFR #### [address] [address] GFR 132 ml/min/1.73sqm Normal Replaced By [facility] [place] Comment on above: Result Comment: GFR Population mean for , Non- Americans Ages 20-29 = 116 mL/min/1.73 sq.m. Ages 30-39 = 107 mL/min/1.73 sq.m. Ages 40-49 = 99 mL/min/1.73 sq.m. Ages 50-59 = 93 mL/min/1.73 sq.m. Ages 60-69 = 85 mL/min/1.73 sq.m. Ages 70+ = 75 mL/min/1.73 sq.m. Chronic Kidney Disease: Less than 60 mL/min/1.73 square meters End Stage Renal Disease: Less than 15 mL/min/1.73 square meters Performed By: #### B MP, GFR #### [address] [address] .MDWon 02-04-2022 Monocyte Distribution Width Not performed Normal 0.00-20.00 Replaced By [facility] ([place]) Comment on above: Result Comment: MDW testing performed only on adult ER patients between the ages of 18-89 years. Performed By: #### B MP, GFR #### [address] [address] .NEUABSon 02-04-2022 Neutrophil, Absolute 4.7 10 3/mcL Normal 2.9-6.2 [facility] ([place]) Comment on above: Performed By: #### B MP, GFR #### [address] [address] A1Con 02-04-2022 HbA1c (Bld) [Mass fraction] 5.3 % Normal 4.3-6.4 Replaced By [facility] ([place]) Comment on above: Performed By: #### B MP, GFR #### [address] [address] ALB 02-04-2022 Albumin Level 3.9 G/dL Normal 3.4-4.8 Replaced By [facility] ([place]) Comment on above: Performed By: #### B MP, GFR #### [address] [address] BMPon 02-04-2022 BUN/Creatinine Ratio 30 ratio High 7-27 [facility] ([place]) Comment on above: Performed By: #### B MP, GFR #### [address] [address] Calcium [Mass/Vol] 9.0 mg/dL Normal 8.4-10.2 [facility] ([place]) Comment on above: Performed By: #### B MP, GFR #### [address] [address] Chloride [Moles/Vol] 108 mmol/L High 98-107 [facility]) Comment on above: Performed By: #### B MP, GFR #### [address] [address] CO2 [Moles/Vol] 25 mmol/L Normal 23-31 Replaced By [facility] [place] Comment on above: Performed By: #### B MP, GFR #### [address] [address] Creatinine [Mass/Vol] 0.71 mg/dL Normal 0.70-1.30 [facility] ([place]) Comment on above: Performed By: #### B MP, GFR #### [address] [address] Electrolyte Balance 11.0 mEq/L Normal 4.0-15.0 [facility] ([place]) Comment on above: Performed By: #### B MP, GFR #### [address] [address] Glucose [Mass/Vol] 90 mg/dL Normal 83-110 [facility]) Comment on above: Performed By: #### B MP, GFR #### [address] [address] Potassium [Moles/Vol] 4.1 mmol/L Normal 3.5-5.1 [facility] ([place]) Comment on above: Performed By: #### B MP, GFR #### [address] [address] Sodium [Moles/Vol] 144 mmol/L Normal 136-145 [facility] ([place]) Comment on above: Performed By: #### B MP, GFR #### [address] [address] Urea nitrogen [Mass/Vol] 21 mg/dL High 7-18 Replaced By [facility] [place] Comment on above: Performed By: #### B MP, GFR #### [address] [address] CBCon 02-04-2022 Erythrocyte distribution width (RBC) [Ratio] 13.3 % Normal 11.5-14.5 Replaced By [facility] [place] Comment on above: Order Comment: Pre-A dmission Testing Performed By: #### B MP, GFR #### [address] [address] Hematocrit (Bld) [Volume fraction] 40.2 % Low 42.0-52.0 Replaced By [facility] [place] Comment on above: Order Comment: Pre-A dmission Testing Performed By: #### B MP, GFR #### [address] [address] Hgb 14.1 G/dL Normal 14.0-18.0 Replaced By [facility] [place] Comment on above: Order Comment: Pre-A dmission Testing Performed By: #### B MP, GFR #### [address] [address] MCH (RBC) [Entitic mass] 33.1 pg High 27.0-31.2 Replaced By [facility] [place] Comment on above: Order Comment: Pre-A dmission Testing Performed By: #### B MP, GFR #### [address] [address] MCHC 35.0 G/dL Normal 31.8-35.4 Replaced By [facility] [place] Comment on above: Order Comment: Pre-A dmission Testing Performed By: #### B MP, GFR #### [address] [address] MCV (RBC) [Entitic vol] 94.7 fL High 80.0-94.0 Replaced By [facility] [place] Comment on above: Order Comment: Pre-A dmission Testing Performed By: #### B MP, GFR #### [address] [address] Platelet 145 10 3/mcL Normal 130-400 Replaced By [facility] [place] Comment on above: Order Comment: Pre-A dmission Testing Performed By: #### B MP, GFR #### [address] [address] Platelet mean volume (Bld) [Entitic vol] 9.6 fL Normal 7.4-10.4 Replaced By [facility] [place] Comment on above: Order Comment: Pre-A dmission Testing Performed By: #### B MP, GFR #### [address] [address] RBC 4.25 10 6/mcL Normal 4.04-6.13 Replaced By [facility] [place] Comment on above: Order Comment: Pre-A dmission Testing Performed By: #### B MP, GFR #### [address] [address] WBC 7.0 10 3/mcL Normal 4.6-10.8 Replaced By [facility] [place] Comment on above: Order Comment: Pre-A dmission Testing Performed By: #### B MP, GFR #### [address] [address] [address] KNEE W/O CONTRAST RIGHTon 02-04-2022 CT KNEE W/O CONTRAST RIGHT ORIGINAL EXAMINATION: CT OF THE RIGHT KNEE WITHOUT CONTRAST 02/04/2022 12:41 pm TECHNIQUE: CT of the right knee was performed without the administration of intravenous contrast. Multiplanar reformatted images are provided for review. Automated exposure control, iterative reconstruction, and/or weight based adjustment of the mA/kV was utilized to reduce the radiation dose to as low as reasonably achievable. COMPARISON: None. HISTORY ORDERING SYSTEM PROVIDED HISTORY: Reason for Exam: Varus deformity, not elsewhere classified, right knee FINDINGS: No acute fracture or dislocation is evident. Osseous mineralization is within limits. No visible aggressive osseous lesions. There is moderate joint space narrowing of the medial femorotibial compartment with mild subchondral bone plate irregularity at the periphery of the weight-bearing medial femoral condyle. There is mild to moderate lateral femorotibial compartment joint space narrowing with tiny marginal osteophytes. Mild patellofemoral compartment joint space narrowing is noted with tiny marginal osteophytes. There is also a well corticated ossicle projecting lateral to the lateral patellar facet which may reflect an intracapsular body versus remote fracture of an osteophyte. The no significant knee joint effusion. No significant popliteal cyst. Visualized tendons are grossly intact. Ligaments are poorly evaluated on this examination. 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 This lesion measures at least 2.8 cm craniocaudal dimension The provided images of the right hemipelvis and right hip exhibit no acute osseous abnormalities or aggressive osseous lesions. Mild right hip degenerative change. There is enthesopathy involving the right superior and inferior pubic rami. A the visualized intra-abdominal and pelvic contents exhibit no acute abnormalities. Provided images of the right ankle exhibit no acute osseous abnormalities or aggressive osseous lesions. There are well corticated ossicles at the expected region of the anterior inferior tibiofibular ligament and about the medial malleolus which may reflect remote injury. Insertional Achilles enthesopathy and [id number] tendinosis are also present. IMPRESSION: 1. No acute osseous abnormalities or aggressive osseous lesions. 2. 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 3. Additional findings, as above. Interpreted by: Khai Lopez DO Preliminary Report By: Khai Lopez DO Electronically signed By Khai Lopez DO Dictated Date: 02/04/2022 12:45:25 PM Prelim Date: 02/04/2022 12:53:04 PM Sign Date: 02/04/2022 12:53:04 PM Ordering Provider: ERNA Nayak Replaced By [facility] [place] Gel ABOon 02-04-2022 ABO/Rh Interp Negative Invalid Interpretation Code Replaced By [facility] [place]) Comment on above: Performed By: #### B MP, GFR #### [place] [address] [place] [address] LABORATORYOrdered By: Rj Shepherd on 02-04-2022 ABO/Rh Interp Negative Invalid Interpretation Code AO BB SS Antibody Screen Gel Positive ABSC (02/04/22 11:09 AM) Invalid Interpretation Code AO BB SS LABORATORYOrdered By: Marshal Beach on 02-04-2022 Albumin BCP dye [Mass/Vol] 3.9 G/dL Invalid Interpretation Code 3.4 - 4.8 G/dL AO ADM SS Calcium [Mass/Vol] 9.0 mg/dL Invalid Interpretation Code 8.4 - 10.2 mg/dL AO ADM SS Chloride [Moles/Vol] 108 mmol/L Invalid Interpretation Code 98 - 107 mmol/L AO ADM SS CO2 [Moles/Vol] 25 mmol/L Invalid Interpretation Code 23 - 31 mmol/L AO ADM SS Creatinine [Mass/Vol] 0.71 mg/dL Invalid Interpretation Code 0.70 - 1.30 mg/dL AO ADM SS Electrolyte Balance 11.0 mEq/L Invalid Interpretation Code 4.0 - 15.0 mEq/L AO ADM SS Glucose [Mass/Vol] 90 mg/dL Invalid Interpretation Code 83 - 110 mg/dL AO ADM SS Potassium [Moles/Vol] 4.1 mmol/L Invalid Interpretation Code 3.5 - 5.1 mmol/L AO ADM SS Sodium [Moles/Vol] 144 mmol/L Invalid Interpretation Code 136 - 145 mmol/L AO ADM SS Urea nitrogen [Mass/Vol] 21 mg/dL Invalid Interpretation Code 7 - 18 mg/dL AO ADM SS Urea nitrogen/Creatinine [Mass ratio] 30 ratio Invalid Interpretation Code 7 - 27 ratio AO ADM SS LABORATORYOrdered By: Ashley Romano on 02-04-2022 Basophil, Absolute 0.1 103/mcL Invalid Interpretation Code 0.0 - 0.2 10^3/mcL AO Workflow SS Basophils/100 WBC (Bld) 0.9 % Invalid Interpretation Code 0.0 - 2.5 % AO Workflow SS Eosinophil, Absolute 0.2 103/mcL Invalid Interpretation Code 0.0 - 0.4 10^3/mcL AO Workflow SS Eosinophils/100 WBC (Bld) 3.3 % Invalid Interpretation Code 0.0 - 7.0 % AO Workflow SS Erythrocyte distribution width (RBC) [Ratio] 13.3 % Invalid Interpretation Code 11.5 - 14.5 % AO Workflow SS HbA1c (Bld) [Mass fraction] 5.3 % Invalid Interpretation Code 4.3 - 6.4 % AO ADM SS Hematocrit (Bld) [Volume fraction] 40.2 % Invalid Interpretation Code 42.0 - 52.0 % AO Workflow SS Hgb 14.1 G/dL Invalid Interpretation Code 14.0 - 18.0 G/dL AO Workflow SS Lymphocyte, Absolute 1.4 103/mcL Invalid Interpretation Code 0.8 - 3.9 10^3/mcL AO Workflow SS Lymphocytes/100 WBC (Bld) 19.7 % Invalid Interpretation Code 10.0 - 50.0 % AO Workflow SS MCH (RBC) [Entitic mass] 33.1 pg Invalid Interpretation Code 27.0 - 31.2 pg AO Workflow SS MCHC 35.0 G/dL Invalid Interpretation Code 31.8 - 35.4 G/dL AO Workflow SS MCV (RBC) [Entitic vol] 94.7 fL Invalid Interpretation Code 80.0 - 94.0 fL AO Workflow SS Monocyte, Absolute 0.7 103/mcL Invalid Interpretation Code 0.2 - 1.0 10^3/mcL AO Workflow SS Monocytes/100 WBC (Bld) 9.7 % Invalid Interpretation Code 1.7 - 13.0 % AO Workflow SS Neutrophil, Absolute 4.7 103/mcL Invalid Interpretation Code 2.9 - 6.2 10^3/mcL AO Workflow SS Neutrophils/100 WBC (Bld) 66.4 % Invalid Interpretation Code 37.0 - 80.0 % AO Workflow SS Platelet 145 103/mcL Invalid Interpretation Code 130 - 400 10^3/mcL AO Workflow SS Platelet mean volume (Bld) [Entitic vol] 9.6 fL Invalid Interpretation Code 7.4 - 10.4 fL AO Workflow SS RBC 4.25 106/mcL Invalid Interpretation Code 4.04 - 6.13 10^6/mcL AO Workflow SS WBC 7.0 103/mcL Invalid Interpretation Code 4.6 - 10.8 10^3/mcL AO Workflow SS LABORATORYOrdered By: SYSTEM SYSTEM on 02-04-2022 GFR 132 ml/min/1.73sqm Invalid Interpretation Code AO Chemistry S GFR Non- 109 ml/min/1.73sqm Invalid Interpretation Code AO Chemistry S Monocyte distribution width Auto (Bld) [Entitic vol] Not Performed 1 *NA* (02/04/22 11:09 AM) Invalid Interpretation Code 0.00 - 20.00 AO Hematology S Comment on above: Result Comment: MDW testing performed only on adult ER patients between the ages of 18-89 years. XR CHEST 2 VIEWSon 2 XR CHEST 2 VIEWS ORIGINAL EXAMINATION: TWO XRAY VIEWS OF THE CHEST 02/04/2022 12:11 pm COMPARISON: 10/06/2013 HISTORY: ORDERING SYSTEM PROVIDED HISTORY: Reason for Exam: Pre-admission testing No additional history was provided. FINDINGS: The cardiomediastinal silhouette is unchanged. There is no focal consolidation, pleural effusion, vascular congestion, or pneumothorax. Hilar markings appear unchanged. A granuloma projects near the diaphragmatic silhouette on the lateral view, unchanged. Presumed nipple shadow noted at the right base. Mild multilevel degenerative changes are identified in the spine. IMPRESSION: No acute radiographic cardiopulmonary findings. Interpreted by: Irene Varela MD Preliminary Report By: Irene Varela MD Electronically signed By Irene Varela MD Dictated Date: 02/04/2022 1:20:15 PM Prelim Date: 02/04/2022 1:21:28 PM Sign Date: 02/04/2022 1:21:28 PM Ordering Provider: ERNA Nayak Replaced By [facility] [place]) .Auto Diffon 03-31-2021 Basophil, Absolute 0.00 10 3/mcL Normal 0.00-0.19 [facility] ([place]) Comment on above: Performed By: #### G FR, BMP #### [address] [address] #### ANEU, ADIFF, CBC #### [address] [address] Basophils/100 WBC (Bld) 0.1 % Normal 0.0-2.5 Replaced By [facility] ([place]) Comment on above: Performed By: #### G FR, BMP #### [address] [address] #### ANEU, ADIFF, CBC #### [address] [address] Eosinophil, Absolute 0.00 10 3/mcL Normal 0.00-0.40 A [facility] ([place]) Comment on above: Performed By: #### G FR, BMP #### [place] [address] #### ANEU, ADIFF, CBC #### [address] [address] Eosinophils/100 WBC (Bld) 0.0 % Normal 0.0-7.0 Replaced By [facility] ([place]) Comment on above: Performed By: #### G FR, BMP #### [place] [address] #### ANEU, ADIFF, CBC #### [address] [address] Lymphocyte, Absolute 1.00 10 3/mcL Normal 0.77-3.85 A [facility] ([place]) Comment on above: Performed By: #### G FR, BMP #### [place] [address] #### ANEU, ADIFF, CBC #### [address] [address] Lymphocytes/100 WBC (Bld) 7.1 % Low 10.0-50.0 Replaced By [facility] ([place]) Comment on above: Performed By: #### G FR, BMP #### [place] [address] #### ANEU, ADIFF, CBC #### [address] [address] Monocyte, Absolute 1.00 10 3/mcL Normal 0.15-1.00 [facility] ([place]) Comment on above: Performed By: #### G FR, BMP #### [place] [address] #### ANEU, ADIFF, CBC #### [address] [address] Monocytes/100 WBC (Bld) 6.9 % Normal 1.7-13.0 Replaced By [facility] ([place]) Comment on above: Performed By: #### G FR, BMP #### [facility] [address] [address] #### ANEU, ADIFF, CBC #### [facility] [address] [place], [place] [address] Neutrophils/100 WBC (Bld) 85.9 % High 37.0-80.0 Replaced By [facility] ([place]) Comment on above: Performed By: #### G FR, BMP #### [address] [address] #### ANEU, ADIFF, CBC #### [facility] [address] [place], [place] [address] .GFRon 03-31-2021 GFR 90 ml/min/1.73sqm Normal Replaced By [facility] ([place]) Comment on above: Result Comment: GFR Population mean for , Non- Americans Ages 20-29 = 116 mL/min/1.73 sq.m. Ages 30-39 = 107 mL/min/1.73 sq.m. Ages 40-49 = 99 mL/min/1.73 sq.m. Ages 50-59 = 93 mL/min/1.73 sq.m. Ages 60-69 = 85 mL/min/1.73 sq.m. Ages 70+ = 75 mL/min/1.73 sq.m. Chronic Kidney Disease: Less than 60 mL/min/1.73 square meters End Stage Renal Disease: Less than 15 mL/min/1.73 square meters Performed By: #### G FR, BMP ####[facility] [place] [address]#### ANEU, ADIFF, CBC ####[facility] [place], [place] [address] GFR Non- 75 ml/min/1.73sqm Normal Replaced By [facility] ([place]) Comment on above: Result Comment: GFR Population mean for , Non- Americans Ages 20-29 = 116 mL/min/1.73 sq.m. Ages 30-39 = 107 mL/min/1.73 sq.m. Ages 40-49 = 99 mL/min/1.73 sq.m. Ages 50-59 = 93 mL/min/1.73 sq.m. Ages 60-69 = 85 mL/min/1.73 sq.m. Ages 70+ = 75 mL/min/1.73 sq.m. Chronic Kidney Disease: Less than 60 mL/min/1.73 square meters End Stage Renal Disease: Less than 15 mL/min/1.73 square meters Performed By: #### Chiki FR, BMP ####[place] [address]#### HANNA, ADIFF, CBC ####[address] [place], [place] [address] .NEUABSon 03-31-2021 Neutrophil, Absolute 12.60 10 3/mcL High 2.85-6.16 Replaced By [facility] ([place]) Comment on above: Performed By: #### Chiki MOORE, BMP ####[place] [address]#### ANEU, ADIFF, CBC ####[place] [address] [place], [place] [address] BMPon 03-31-2021 BUN/Creatinine Ratio 21 ratio Normal 7-27 [facility] ([place]) Comment on above: Performed By: #### Chiki MOORE, BMP ####[place] [address]#### ANEU, ADIFF, CBC ####[address] [place], [place] [address] Calcium [Mass/Vol] 8.9 mg/dL Normal 8.4-10.2 [facility] ([place]) Comment on above: Performed By: #### Chiki MOORE, BMP ####[place] [address]#### ANEU, ADIFF, CBC ####[address] [place], [place] [address] Chloride [Moles/Vol] 106 mmol/L Normal 98-107 [facility] ([place]) Comment on above: Performed By: #### G FR, BMP ####[address] [address]#### ANEU, ADIFF, CBC ####[address] [place], [place] [address] CO2 [Moles/Vol] 27 mmol/L Normal 23-31 Replaced By [facility] ([place]) Comment on above: Performed By: #### G FR, BMP ####[place] [address]#### ANEU, ADIFF, CBC ####[address] [place], [place] [address] Creatinine [Mass/Vol] 0.99 mg/dL Normal 0.70-1.30 [facility] ([place]) Comment on above: Performed By: #### G FR, BMP ####[place] [address]#### ANEU, ADIFF, CBC ####[facility] [place], [place] [address] Electrolyte Balance 9.0 mEq/L Normal [facility] ([place]) Comment on above: Performed By: #### Chiki MOORE, BMP ####[place] [address]#### ANEU, ADIFF, CBC ####[address] [place], [place] [address] Glucose [Mass/Vol] 164 mg/dL High 83-110 [facility] ([place]) Comment on above: Performed By: #### G FR, BMP ####[address] [address]#### ANEU, ADIFF, CBC ####[facility] [place], [place] [address] Potassium [Moles/Vol] 4.2 mmol/L Normal 3.5-5.1 [facility] ([place]) Comment on above: Performed By: #### G FR, BMP ####[address] [address]#### ANEU, ADIFF, CBC ####[address] [place], [place] [address] Sodium [Moles/Vol] 142 mmol/L Normal 136-145 [facility] ([place]) Comment on above: Performed By: #### Chiki FR, BMP ####[place] [address]#### ANEU, ADIFF, CBC ####[address] [address] Urea nitrogen [Mass/Vol] 21 mg/dL High 7-18 Replaced By [facility] [place] Comment on above: Performed By: #### Chiki FR, BMP ####[place] [address]#### ANEU, ADIFF, CBC ####[place] [id number] CBCon 03-31-2021 Erythrocyte distribution width (RBC) [Ratio] 13.5 % Normal 11.5-14.5 Replaced By [facility] [place] Comment on above: Performed By: #### Chiki MOORE, BMP #### [place] [address] #### ANEU, ADIFF, CBC #### [address] [address] Hematocrit (Bld) [Volume fraction] 37.1 % Low 42.0-52.0 Replaced By [facility] [place] Comment on above: Performed By: #### Chiki FR, BMP #### [place] [address] #### ANEU, ADIFF, CBC #### [address] [address] Hgb 13.2 G/dL Low 14.0-18.0 Replaced By [facility] [place] Comment on above: Performed By: #### Chiki FR, BMP #### [place] [address] #### ANEU, ADIFF, CBC #### [address] [address] MCH (RBC) [Entitic mass] 33.3 pg High 27.0-31.2 Replaced By [facility] [place] Comment on above: Performed By: #### Chiki FR, BMP #### [address] [address] #### ANEU, ADIFF, CBC #### [address] [address] MCHC 35.4 G/dL Normal 31.8-35.4 Replaced By [facility] [place] Comment on above: Performed By: #### G FR, BMP #### [place] [address] #### ANEU, ADIFF, CBC #### [address] [address] MCV (RBC) [Entitic vol] 93.8 fL Normal 80.0-94.0 Replaced By [facility] [place] Comment on above: Performed By: #### G FR, BMP #### [place] [address] #### ANEU, ADIFF, CBC #### [place] [id number] Platelet 155 10 3/mcL Normal 130-400 Replaced By [facility] ([place]) Comment on above: Performed By: #### Chiki FR, BMP #### [place] [address] #### ANEU, ADIFF, CBC #### [address] [address] Platelet mean volume (Bld) [Entitic vol] 9.7 fL Normal 7.4-10.4 Replaced By [facility] [place] Comment on above: Performed By: #### G FR, BMP #### [place] [address] #### ANEU, ADIFF, CBC #### [address] [address] RBC 3.96 10 6/mcL Low 4.04-6.13 Replaced By [facility] ([place] Comment on above: Performed By: #### G FR, BMP #### [place] [address] #### ANEU, ADIFF, CBC #### [place] [id number] WBC 14.70 10 3/mcL High 4.60-10.80 Replaced By [facility] ([place] Comment on above: Performed By: #### Chiki MOORE, BMP #### [facility] [address] [place] [address] #### ANEU, ADIFF, CBC #### [facility] [address] [place], [place] [address] XR KNEE 1 OR 2 VIEWS LEFTon 03-30-2021 XR KNEE 1 OR 2 VIEWS LEFT ORIGINAL EXAMINATION: TWO XRAY VIEWS OF THE LEFT KNEE03/30/2021 10:59 am COMPARISON: None HISTORY: ORDERING SYSTEM PROVIDED HISTORY: Status Post Arthroplasty FINDINGS: A total knee prosthesis is in satisfactory position and alignment. No postoperative complications are identified. IMPRESSION: Satisfactory appearance of postop knee. Interpreted by: Tiesha Beach Preliminary Report By: Tiesha Beach Electronically signed By Tiesha Beach Dictated Date: 03/30/2021 11:45:24 AM Prelim Date: 03/30/2021 11:46:44 AM Sign Date: 03/30/2021 11:46:44 AM Ordering Provider: ERNA Nayak Replaced By [facility] [place] .Auto Diffon 03-19-2021 Basophil, Absolute 0.10 10 3/mcL Normal 0.00-0.19 [facility] ([place]) Comment on above: Performed By: #### Chiki MOORE, BMP ####[address] [address]#### ANEU, CBC, ADIFF ####[facility] [place], [place] [address] Basophils/100 WBC (Bld) 0.8 % Normal 0.0-2.5 Replaced By [facility] ([place]) Comment on above: Performed By: #### Chiki MOORE, BMP ####[address] [address]#### ANEU, CBC, ADIFF ####[facility] [place], [place] [address] Eosinophil, Absolute 0.50 10 3/mcL High 0.00-0.40 [facility] ([place]) Comment on above: Performed By: #### Chiki FR, BMP ####[place] [address]#### ANEU, CBC, ADIFF ####[address] [place], [place] [address] Eosinophils/100 WBC (Bld) 6.8 % Normal 0.0-7.0 Replaced By [facility] ([place] Comment on above: Performed By: #### G FR, BMP ####[place] [address]#### ANEU, CBC, ADIFF ####[address] [place], [place] [address] Lymphocyte, Absolute 1.40 10 3/mcL Normal 0.77-3.85 [facility] ([place]) Comment on above: Performed By: #### G FR, BMP ####[place] [address]#### ANEU, CBC, ADIFF ####[address] [place], [place] [address] Lymphocytes/100 WBC (Bld) 18.5 % Normal 10.0-50.0 Replaced By [facility] ([place]) Comment on above: Performed By: #### G FR, BMP ####[place] [address]#### ANEU, CBC, ADIFF ####[address] [place], [place] [address] Monocyte, Absolute 0.80 10 3/mcL Normal 0.15-1.00 [facility] ([place]) Comment on above: Performed By: #### G FR, BMP ####[place] [address]#### ANEU, CBC, ADIFF ####[address] [place], [place] [address] Monocytes/100 WBC (Bld) 10.2 % Normal 1.7-13.0 Replaced By [facility] ([place]) Comment on above: Performed By: #### G FR, BMP ####[place] [address]#### ANEU, CBC, ADIFF ####[address] [place], [place] [address] Neutrophils/100 WBC (Bld) 63.7 % Normal 37.0-80.0 Replaced By [facility] ([place] Comment on above: Performed By: #### G FR, BMP ####[facility] [place] [address]#### ANEU, CBC, ADIFF ####[address] [place], [place] [address] .GFRon 03-19-2021 GFR Non- 91 ml/min/1.73sqm Normal Replaced By [facility] ([place] Comment on above: Result Comment: GFR Population mean for , Non- Americans Ages 20-29 = 116 mL/min/1.73 sq.m. Ages 30-39 = 107 mL/min/1.73 sq.m. Ages 40-49 = 99 mL/min/1.73 sq.m. Ages 50-59 = 93 mL/min/1.73 sq.m. Ages 60-69 = 85 mL/min/1.73 sq.m. Ages 70+ = 75 mL/min/1.73 sq.m. Chronic Kidney Disease: Less than 60 mL/min/1.73 square meters End Stage Renal Disease: Less than 15 mL/min/1.73 square meters Performed By: #### G FR, BMP ####[facility] [place] [address]#### ANEU, CBC, ADIFF ####[address] [place], [place] [address] GFR 111 ml/min/1.73sqm Normal Replaced By [facility] [place] Comment on above: Result Comment: GFR Population mean for , Non- Americans Ages 20-29 = 116 mL/min/1.73 sq.m. Ages 30-39 = 107 mL/min/1.73 sq.m. Ages 40-49 = 99 mL/min/1.73 sq.m. Ages 50-59 = 93 mL/min/1.73 sq.m. Ages 60-69 = 85 mL/min/1.73 sq.m. Ages 70+ = 75 mL/min/1.73 sq.m. Chronic Kidney Disease: Less than 60 mL/min/1.73 square meters End Stage Renal Disease: Less than 15 mL/min/1.73 square meters Performed By: #### G FR, BMP ####[place] [address]#### ANEU, CBC, ADIFF ####[facility] [place], [place] [address] .NEUABSon 03-19-2021 Neutrophil, Absolute 4.70 10 3/mcL Normal 2.85-6.16 [facility] ([place]) Comment on above: Performed By: #### Chiki FR, BMP ####[place] [address]#### ANEU, CBC, ADIFF ####[address] [place], [place] [address] BMPon 03-19-2021 BUN/Creatinine Ratio 23 ratio Normal 7-27 [facility] ([place]) Comment on above: Performed By: #### Chiki FR, BMP ####[place] [address]#### ANEU, CBC, ADIFF ####[facility] [place], [place] [address] Calcium [Mass/Vol] 8.8 mg/dL Normal 8.4-10.2 [facility] ([place]) Comment on above: Performed By: #### Chiki FR, BMP ####[place] [address]#### ANEU, CBC, ADIFF ####[address] [place], [place] [address] Chloride [Moles/Vol] 108 mmol/L High 98-107 [facility] ([place]) Comment on above: Performed By: #### G FR, BMP ####[place] [address]#### ANEU, CBC, ADIFF ####[facility] [place], [place] [address] CO2 [Moles/Vol] 29 mmol/L Normal 23-31 Replaced By [facility] ([place]) Comment on above: Performed By: #### G FR, BMP ####[address] [address]#### ANEU, CBC, ADIFF ####[address] [place], [place] [address] Creatinine [Mass/Vol] 0.83 mg/dL Normal 0.70-1.30 [facility] ([place]) Comment on above: Performed By: #### G FR, BMP ####[address] [address]#### ANEU, CBC, ADIFF ####[address] [place], [place] [address] Electrolyte Balance 8.0 mEq/L Normal [facility] ([place]) Comment on above: Performed By: #### G FR, BMP ####[place] [address]#### ANEU, CBC, ADIFF ####[address] [place], [place] [address] Glucose [Mass/Vol] 92 mg/dL Normal 83-110 [facility] ([place]) Comment on above: Performed By: #### G FR, BMP ####[place] [address]#### ANEU, CBC, ADIFF ####[address] [place], [place] [address] Potassium [Moles/Vol] 4.3 mmol/L Normal 3.5-5.1 [facility] ([place]) Comment on above: Performed By: #### G FR, BMP ####[place] [address]#### ANEU, CBC, ADIFF ####[address] [place], [place] [address] Sodium [Moles/Vol] 145 mmol/L Normal 136-145 [facility] ([place]) Comment on above: Performed By: #### G FR, BMP ####[place] [address]#### ANEU, CBC, ADIFF ####[address] [place], [place] [address] Urea nitrogen [Mass/Vol] 19 mg/dL High 7-18 Replaced By [facility] ([place]) Comment on above: Performed By: #### G FR, BMP ####[address] [address]#### ANEU, CBC, ADIFF ####[address] [place], [place] [address] CBCon 03-19-2021 Erythrocyte distribution width (RBC) [Ratio] 13.5 % Normal 11.5-14.5 Replaced By [facility] [place]) Comment on above: Order Comment: Pre-A dmission Testing Performed By: #### G FR, BMP ####[place] [address]#### ANEU, CBC, ADIFF ####[address] [place] [address] Hematocrit (Bld) [Volume fraction] 41.8 % Low 42.0-52.0 Replaced By [facility] [place]) Comment on above: Order Comment: Pre-A dmission Testing Performed By: #### G FR, BMP ####[place] [address]#### ANEU, CBC, ADIFF ####[address] [place] [address] Hgb 14.7 G/dL Normal 14.0-18.0 Replaced By [facility] [place]) Comment on above: Order Comment: Pre-A dmission Testing Performed By: #### G FR, BMP ####[place] [address]#### ANEU, CBC, ADIFF ####[address] [place], [place] [address] MCH (RBC) [Entitic mass] 33.3 pg High 27.0-31.2 Replaced By [facility] [place]) Comment on above: Order Comment: Pre-A dmission Testing Performed By: #### G FR, BMP ####[place] [address]#### ANEU, CBC, ADIFF ####[address] [place], [place] [address] MCHC 35.1 G/dL Normal 31.8-35.4 Replaced By [facility] ([place]) Comment on above: Order Comment: Pre-A dmission Testing Performed By: #### G FR, BMP ####[place] [address]#### ANEU, CBC, ADIFF ####[address] [place], [place] [address] MCV (RBC) [Entitic vol] 94.8 fL High 80.0-94.0 Replaced By [facility] [place]) Comment on above: Order Comment: Pre-A dmission Testing Performed By: #### G FR, BMP ####[place] [address]#### ANEU, CBC, ADIFF ####[address] [place] [address] Platelet 163 10 3/mcL Normal 130-400 Replaced By [facility] ([place]) Comment on above: Order Comment: Pre-A dmission Testing Performed By: #### G FR, BMP ####[place] [address]#### ANEU, CBC, ADIFF ####[address] [place] [id number] Platelet mean volume (Bld) [Entitic vol] 10.1 fL Normal 7.4-10.4 Replaced By [facility] [place] Comment on above: Order Comment: Pre-A dmission Testing Performed By: #### G FR, BMP ####[place] [address]#### ANEU, CBC, ADIFF ####[address] [place] [id number] RBC 4.41 10 6/mcL Normal 4.04-6.13 Replaced By [facility] [place]) Comment on above: Order Comment: Pre-A dmission Testing Performed By: #### G FR, BMP ####[place] [address]#### ANEU, CBC, ADIFF ####[address] [place] [id number] WBC 7.40 10 3/mcL Normal 4.60-10.80 Replaced By [facility] ([place]) Comment on above: Order Comment: Pre-A dmission Testing Performed By: #### G FR, BMP ####[place] [id number] [place] [address]#### ANEU, CBC, ADIFF ####[address] [place], [place] [address] CT KNEE W/O CONTRAST LEFTon 03-19-2021 CT KNEE W/O CONTRAST LEFT ORIGINAL EXAMINATION: CT OF THE LEFT KNEE WITHOUT CONTRAST03/19/2021 1:25 pm TECHNIQUE: CT of the left knee was performed without the administration of intravenous contrast. Multiplanar reformatted images are provided for review. Dose modulation, iterative reconstruction, and/or weight based adjustment of the mA/kV was utilized to reduce the radiation dose to as low as reasonably achievable. COMPARISON: None. 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 Degenerative changes in the knee are most pronounced in the medial tibiofemoral compartment. There are corticated ossicles near the distal in C al which may relate to old trauma. No acute fractures seen. No aggressive osseous lesion. Left ankle: No aggressive osseous lesion IMPRESSION: Moderate degenerative changes in the left knee. Chronic corticated ossicles near the distal MCL may relate to old trauma Interpreted by: Khai Yuan MD Preliminary Report By: Khai Yuan MD Electronically signed By Khai Yuan MD Dictated Date: 03/19/2021 2:32:48 PM Prelim Date: 03/19/2021 2:35:11 PM Sign Date: 03/19/2021 2:35:11 PM Ordering Provider: ERNA Nayak Replaced By [facility] ([place]) Vital Signs Date Time Vital Sign Value Performing Clinician Tej vargas 07-07-2023 10:30-0400 Body temperature 99.3 [degF] Dr. Armida Alejandro Work Phone: 07-07-2023 10:30-0400 Diastolic blood pressure 65 mm[Hg] Dr. Armida Alejandro Work Phone: 07-07-2023 10:30-0400 Heart rate 63 /min Dr. Armida Alejandro Work Phone: 07-07-2023 10:30-0400 Respiratory rate 16 /min Dr. Armida Alejandro Work Phone: 07-07-2023 10:30-0400 SaO2% (BldA) [Mass fraction] 99 % Dr. Armida Alejandro Work Phone: 07-07-2023 10:30-0400 Systolic blood pressure 108 mm[Hg] Dr. Armida Alejandro Work Phone: 07-07-2023 09:20-0400 Body height 172.[address] Armida Alejandro Work Phone: 07-07-2023 09:20-0400 Body mass index (BMI) [Ratio] 40.1 kg/m2 Dr. Armida Alejandro Work Phone: 07-07-2023 09:20-0400 Body weight 119.[address] Armida Alejandro Work Phone: 06-28-2023 14:18-0400 Body mass index (BMI) [Ratio] 39.9 kg/m2 Dr. Armida Alejandro Work Phone: 06-28-2023 14:18-0400 Body temperature 97.1 [degF] Dr. Armida Alejandro Work Phone: 06-28-2023 14:18-0400 Body weight 119.[address] Armida Alejandro Work Phone: 06-28-2023 14:18-0400 Diastolic blood pressure 63 mm[Hg] Dr. Armida Alejandro Work Phone: 06-28-2023 14:18-0400 Heart rate 51 /min Dr. Armida Alejandro Work Phone: 06-28-2023 14:18-0400 Respiratory rate 17 /min Dr. Armida Alejandro Work Phone: 06-28-2023 14:18-0400 SaO2% (BldA) [Mass fraction] 99 % Dr. Armida Alejandro Work Phone: 06-28-2023 14:18-0400 Systolic blood pressure 101 mm[Hg] Dr. Armida Alejandro Work Phone: 06-20-2023 09:34-0400 Body temperature 98.3 [degF] Dr. Armida Alejandro Work Phone: 06-20-2023 09:34-0400 Diastolic blood pressure 77 mm[Hg] Dr. Armida Alejandro Work Phone: 06-20-2023 09:34-0400 Heart rate 63 /min Dr. Armida Alejandro Work Phone: 06-20-2023 09:34-0400 Respiratory rate 16 /min Dr. Armida Alejandro Work Phone: 06-20-2023 09:34-0400 SaO2% (BldA) [Mass fraction] 97 % Dr. Armida Alejandro Work Phone: 06-20-2023 09:34-0400 Systolic blood pressure 126 mm[Hg] Dr. Armida Alejandro Work Phone: 06-20-2023 08:24-0400 Body mass index (BMI) [Ratio] 39.2 kg/m2 Dr. Armida Alejandro Work Phone: 06-20-2023 08:24-0400 Body weight [address] Armida Alejandro Work Phone: 02-27-2023 15:42-0400 Body height 172.[address] Armida Alejandro Work Phone: 02-27-2023 15:42-0400 Body mass index (BMI) [Ratio] 42.8 kg/m2 Dr. Armida Alejandro Work Phone: 02-27-2023 15:42-0400 Body weight 127.[address] Armida Alejandro Work Phone: 02-27-2023 15:42-0400 Diastolic blood pressure 67 mm[Hg] Dr. Armida Alejandro Work Phone: 02-27-2023 15:42-0400 Heart rate 64 /min Dr. Armida Alejandro Work Phone: 02-27-2023 15:42-0400 Respiratory rate 20 /min Dr. Armida Alejandro Work Phone: 02-27-2023 15:42-0400 SaO2% (BldA) [Mass fraction] 97 % Dr. Armida Alejandro Work Phone: 02-27-2023 15:42-0400 Systolic blood pressure 110 mm[Hg] Dr. Armida Alejandro Work Phone: 07-20-2022 09:40-0500 Body height 172.[address] Armida Alejandro Work Phone: 07-20-2022 09:40-0500 Body mass index (BMI) [Ratio] 42.5 kg/m2 Dr. Armida Alejandro Work Phone: 07-20-2022 09:40-0500 Body weight [address] Armida Alejandro Work Phone: 07-20-2022 09:40-0500 Diastolic blood pressure 82 mm[Hg] Dr. Armida Alejandro Work Phone: 07-20-2022 09:40-0500 Heart rate 59 /min Dr. Armida Alejandro Work Phone: 07-20-2022 09:40-0500 Respiratory rate 18 /min Dr. Armida Alejandro Work Phone: 07-20-2022 09:40-0500 SaO2% (BldA) [Mass fraction] 97 % Dr. Armida Alejandro Work Phone: 07-20-2022 09:40-0500 Systolic blood pressure 131 mm[Hg] Dr. Armida Alejandro Work Phone: 03-22-2022 05:52-0400 Body height 172.[address] Armida Alejandro Work Phone: Work Phone: 03-22-2022 05:52-0400 Body mass index (BMI) [Ratio] 41.9 kg/m2 Dr. Armida Alejandro Work Phone: Work Phone: 03-22-2022 05:52-0400 Body temperature 98.6 [degF] Dr. Armida Alejandro Work Phone: Work Phone: 03-22-2022 05:52-0400 Body weight 125.[address] Armida Alejandro Work Phone: Work Phone: 03-22-2022 05:52-0400 Diastolic blood pressure 54 mm[Hg] Dr. Armida Alejandro Work Phone: Work Phone: 03-22-2022 05:52-0400 Heart rate 58 /min Dr. Armida Alejandro Work Phone: Work Phone: 03-22-2022 05:52-0400 Respiratory rate 16 /min Dr. Armida Alejandro Work Phone: Work Phone: 03-22-2022 05:52-0400 SaO2% (BldA) [Mass fraction] 97 % Dr. Armida Alejandro Work Phone: Work Phone: 03-22-2022 05:52-0400 Systolic blood pressure 110 mm[Hg] Dr. Armida Alejandro Work Phone: Work Phone: 02-04-2022 10:39-0400 Body height 172.[address] ERNA ROA MD [facility] 02-04-2022 10:39-0400 Body weight 125.[address] ERNA ROA MD [facility] 02-04-2022 10:39-0400 Body weight 41.98 kg/m2 DR ERNA ROA MD [facility] 02-04-2022 10:39-0400 diastolic 78 mm[Hg] DR ERNA ROA MD [facility] 02-04-2022 10:39-0400 Heart rate 55 /min DR ERNA ROA MD [facility] 02-04-2022 10:39-0400 Respiratory rate 20 /min DR ERNA ROA MD [facility] 02-04-2022 10:39-0400 systolic 124 mm[Hg] DR ERNA ROA MD [facility] Encounters Encounter Date Encounter Type Care Provider Facility Start: 08-28-2024 End: 08-28-2024 ambulatory Armida Alejandro Facility: Start: 07-16-2024 End: 07-16-2024 ambulatory Taco Hanson Facility: Start: 03-27-2024 End: 03-27-2024 ambulatory Armida Alejandro Facility: Start: 10-11-2023 End: 10-11-2023 ambulatory Armida Alejandro Facility:[facility] [place] [place] Start: 09-20-2023 End: 09-20-[address] Armida Alejandro Work Phone: Work Phone: Start: 09-20-2023 End: 09-20-[address] Armida Alejandro Work Phone: [place] [facility] Start: 07-26-2023 End: 07-26-[address] Armida Alejandro Work Phone: [facility] Work Phone: Start: 07-07-2023 Non-patient / Non-visit Dr. Amy Alejandro Work Phone: [facility] Start: 07-07-2023 End: 07-07-2023 Admission to same day surgery center Dr. Armida Alejandro Work Phone: -Endoscopy Work Phone: Start: 06-28-2023 End: 06-28-[address] Armida Alejandro Work Phone: [facility] Work Phone: Start: 06-26-2023 End: 06-26-[address] Armida Alejandro Work Phone: [place] [facility] Start: 06-20-2023 Non-patient / Non-visit Dr. Amy Alejandro Work Phone: [facility] Start: 06-20-2023 End: 06-20-2023 Admission to same day surgery center Dr. Amrida Alejandro Work Phone: -Endoscopy Work Phone: Start: 03-22-2023 End: 03-22-[address] Armida Alejandro Work Phone: Work Phone: Start: 03-22-2023 End: 03-22-[address] [facility] Start: 02-27-2023 End: 02-27-[address] Armida Alejandro Work Phone: [facility] Work Phone: Start: 01-31-2023 End: 01-31-2023 ambulatory Work Phone: Start: 01-31-2023 End: 01-31-2023 Patient encounter procedure -Nuclear Medicine, [facility] Start: 01-05-2023 End: 01-05-2023 ambulatory Work Phone: Start: 01-05-2023 End: 01-05-2023 Patient encounter procedure -Ultrasound, [facility] Start: 12-28-2022 End: 12-28-2022 ambulatory Work Phone: Start: 12-28-2022 End: 12-28-2022 Patient encounter procedure -Cat Scan, [facility] Start: 12-27-2022 End: 12-27-2022 ambulatory Work Phone: Start: 12-27-2022 End: 12-27-2022 [facility] Start: 09-27-2022 End: 09-27-[address] Armida Alejandro Work Phone: Work Phone: Start: 09-27-2022 End: 09-27-[address] Armida Alejandro Work Phone: [facility] Start: 07-20-2022 End: 07-20-[address] Armida Alejandro Work Phone: -[facility] Start: 05-31-2022 End: 05-31-[address] Armida Alejandro Work Phone: Work Phone: Start: 05-31-2022 End: 05-31-[address] Armida Alejandro Work Phone: [facility] Start: 03-22-2022 End: 03-22-[address] Armida Alejandro Work Phone: -Pulmonary Medicine [facility] Start: 02-15-2022 End: 02-15-[address] Armida Alejandro Work Phone: -[facility], [facility] Start: 02-04-2022 End: 02-04-[address] ERNA ROA MD [facility] Start: 02-04-2022 End: 02-04-[address] ERNA ROA MD [facility] Start: 01-26-[address] Kathia Alejandro Work Phone: Start: 03-17-[address] Kathia Alejandro Work Phone: Procedures Date Procedure Procedure Detail Performing Clinician Start: 06-20-[address] Armida Alejandro Work Phone: Start: 01-31-2023 Radionuclide imaging of liver and/or biliary tract using radioactive isotope Start: 01-05-2023 Ultrasonography of abdomen Start: 12-28-2022 Computed tomography of abdomen and pelvis with contrast Start: 12-27-2022 X-ray of bilateral ribs, three views without chest x-ray Start: 12-27-[address] Armida Alejandro Work Phone: Start: 02-15-2022 US scan of bladder Dr. 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 Work Phone: [facility] Immunizations Immunization Date Immunization Notes Care Provider Fa cility 12-10-2020 Covid (Pfizer) Dr. Armida last Work Phone: 11-19-2020 Covid (Pfizer) Dr. Armida last Work Phone: 07-11-[address] Armida Alejandro Work Phone: Payers Date Payer Category Payer Self-pay [id number] 2023 Private Health Insurance [id number] 2014 Medicare MEDICARE PART A B [id number] 2004 Unknown [facility] [id number] Unknown [id number] Unknown [id number] Unknown [id number] Unknown [id number] Social History Date Type Detail Facility Start: 01-08-2020 Tobacco smoking status Never smoked tobacco (finding) [facility] Start: 1950 Sex Assigned At Male [facility] Start: 03-22-2022 End: 07-05-2023 Tobacco smoking status NHIS Unknown if ever smoked Start: 10-06-2013 None [facility] Start: 10-06-2013 Spouse/ Signif icant Other Start: 04-08-2020 Non-smoker [facility] Goals Date Patient Goal Desired Activity /State Functional Status Date Assessment Result Facility 02-04-2022 Functional Status Sensory Deficits None [facility] Mental Status Date Assessment Result Facility 07-07-2023 Cognitive function Voice/Name;Touch/Shaki [facility] Work Phone: 06-20-2023 Cognitive function Voice/Name;Touch/Shaki [facility] Work Phone: Evaluation + Plan note Note Date & Type Note Facility Evaluation + Plan note Future Appointments [facility] Evaluation note Note Date & Type Note Facility Evaluation note Diagnosis Onset Date INGRIS (obstructive sleep apnea) chronic Work Phone: Evaluation note Note Date & Type Note Facility Evaluation note Diagnosis Onset Date Atherosclerotic heart diseas e of [place] coronary artery without angina pectoris chronic Essential hypertension chron ic Presence of stent in coronary artery chronic Pure hypercholesterolemia ch ronic Work Phone: Evaluation note Note Date & Type Note Facility Evaluation note No assessment information availa ble Work Phone: Evaluation note Note Date & Type Note Facility Evaluation note Diagnosis Onset Date Personal history of colonic polyps acute Dysphagia acute Dysphagia acute Work Phone: Hospital course Narrative Note Date & Type Note Facility Hospital course Narrative No data available for this section [facility] Hospital Discharge instructions Note Date & Type Note Facility Hospital Discharge instructions No data available for this section [facility] Progress note Note Date & Type Note Facility Progress note No data available for this section [facility] Summary Purpose Family History No Family History Records Found Relationship Condition Age at Onset Recorded Date/T sharonda father Myocardial infarction 72 Coronary artery disease Unknown Advance Directives No Advanced Directives Records Found Advance Directive Response Recorded Date/ Time Advance Directives No October 10, 2014 10:24am Living Will No July 03 9:20am Power of Sheather No July 03, 2020 9:20am Advance Directive Response Recorded Date/ Time Advance Directives No October 10, 2014 9:24am Living Will No July 03 8:20am Power of Sheather No July 03, 2020 8:20am Advance Directive Response Recorded Date/ Time Advance Directives No October 10, 2014 9:24am Living Will No July 05 1:23pm Power of Sheather No July 05, 2023 1:23pm Chief Complaint and Reason for Visit Chief Complaint Retention of urine, unspecified 1 Y FU Reason for Visit INGRIS (obstructive sle ep apnea) Chief Complaint 6 m fu Reason for Visit Atherosclerotic hear t disease of [place] coronary artery without angina pectoris Essential hypertension Presence of stent in coronary artery Pure hypercholesterolemia Chief Complaint RIB PAIN HEMATURIA Chief Complaint RIB PAIN HEMATURIA RUQ PAIN Chief Complaint RIB PAIN HEMATURIA RUQ PAIN Other specified diseases of gallbladder Chief Complaint RIB PAIN HEMATURIA RUQ PAIN Other specified diseases of gallbladder 6 M FU Reason for Visit Atherosclerotic hear t disease of [place] coronary artery without angina pectoris Essential hypertension Presence of stent in coronary artery Pure hypercholesterolemia Chief Complaint RECALL LETTER - EGD EGD 07/07 Reason for Visit Personal history of colonic polyps Dysphagia Dysphagia Additional Source Comments Care Team (unrecognized sect ion and content) Team Status: Active Member Role Status Dates Dr. Armida Lovett MD Family Provider Active Dr. Armida Alejandro MD Primary Care Provider Active Team Status: Inactive Member Role Status Dates Dr. Armida Alejandro MD Primary Care Provider, Referr ing Provider Active Natalee Larson PA, PA Attending Provider Active Team Status: Inactive Member Role Status Dates Dr. Armida Alejandro MD Primary Care Provider, Attend ing Provider Active Team Status: Inactive Member Role Status Dates Dr. Armida Alejandro MD Primary Care Pr ovider, Attending Provider, Referring Provider Active Team Status: Active Member Role Status Dates Dr. Armida Alejandro MD Primary Care Provider, Attend ing Provider Active Team Status: Inactive Member Role Status Dates Dr. Armida Alejandro MD Primary Care Provider, Attend ing Provider Active Armida CHATTERJEE MD Referring Provider Active Team Status: Active Member Role Status Dates Dr. Armida Alejandro MD Primary Care Provider, Referr ing Provider Active Dr. Michael Pride MD Attending Provider, Other Provider Active Team Status: Inactive Member Role Status Dates Dr. Armida Alejandro MD Primary Care Provider, Referr ing Provider Active Dr. Michael Pride MD Attending Provider Active Team Status: Inactive Member Role Status Dates Dr. Amrida Alejandro MD Primary Care Provider Active Dr. Taco Hanson MD Attending Provider Active (unrecognized sect ion and content) No Status Records FoundNo Status Records Found INFORMATION SOURCE (unrecogn ized section and content) DATE CREATED AUTHOR 03/07/2022 [facility] ([place]) DATE CREATED AUTHOR AUTHOR'S GLENDA BALDERRAMA 10/05/2024 [facility] Goals (unrecognized section and content) Goals may be documented in a n alternate section FOR RECORDS PERTAINING TO PATIENTS WHO ARE OR HAVE BEEN ENROLLED IN A CHEMICAL DEPENDENCY/SUBSTANCEABUSE PROGRAM, SOME INFORMATION MAY BE OMITTED. This clinical summary was aggregated from multiple sources. Caution should be exercised in using it in the provision of clinical care. This summary normalizes information from multiple sources, and as a consequence, information in this document may materially change the coding, format and clinical context of patient data. In addition, data may be omitted in some cases. CLINICAL DECISIONS SHOULD BE BASED ON THE PRIMARY CLINICAL RECORDS. [facility] [employer] [facility]. provides no warranty or guarantee of the accuracy or completeness of information in this document.
== END | disposition home or self-care (01) ==
LOC: MTLAB 09:34
PROVIDERS: PCP Family Medicine; Referring Provider Family Medicine; Visit Provider Family Medicine
DX: I10 Essential (primary) hypertension (principal); Z12.5 Encounter for screening for malignant neoplasm of prostate
CPT/HCPCS: 36415; 80053; 80061; 84153; 85025; G0103

== ENCOUNTER → 2025-07-01 | Outpatient (CLI) | payer MEDICARE, SELFPAY ==
[2025-07-01 12:15] LABS: Hematocrit 38.5 % (40-54); Hemoglobin 13.4 g/dL (13.0-16.5); Immature Granulocytes Count 0.030 X10^3/uL (0.0-0.0); Mean Corp Hgb Conc 34.8 g/dL (32-36); Mean Corpuscular Volume 93.0 fL (80-94); Mean Platelet Vol. 11.5 fl (6.2-12.0); NRBC Flagged by Analyzer 0 % (0-5); Platelet Count 183 K/mm3 (150-450); RBC Distribution Width CV 12.9 % (11.6-14.6); RBC Distribution Width SD 44.0 fl (35.1-43.9); Red Blood Count 4.14 M/mm3 (4.6-6.2); White Blood Count 7.5 K/mm3 (4.4-11.0)
[2025-07-01 14:17] LABS: AST(SGOT) 25 U/L (<=37); Alanine Aminotransfer ALT/SGPT 16 U/L (<=46); Albumin, Serum 4.1 g/dL (3.4-4.8); Alkaline Phosphatase 67 U/L (40-129); Anion Gap 11 (5-15); BUN 20 mg/dL (4-19); BUN/Creat Ratio 24.5 RATIO (10-20); Calcium,Total 9.3 mg/dL (7.6-11.0); Carbon Dioxide 22.5 mmol/L (21.0-32.0); Chloride 106 mmol/L (98-108); Cholesterol 96 mg/dL (<=200); Globulin 2.6 g/dL (2.2-4.2); Glucose 98 mg/dL (70-99); Low Density Lipoprotein Calc. 34 mg/dL; Magnesium 1.9 mg/dL (1.5-2.2); Potassium 4.1 mmol/L (3.3-5.1); Triglycerides 76 mg/dL; Very Low Density Lipoprotein 15 mg/dL (5-40); Vitamin B12 521 pg/mL (180-914); cholesterol:hdl ratio screen 2.08
[2025-07-01 14:48] LABS: FOLATES,SERUM (FOLIC ACID) 22.00 ng/mL (4.60-34.80)
== END | disposition home or self-care (01) ==
LOC: MFPLAB 10:09
PROVIDERS: PCP Family Medicine; Visit Provider Family Medicine
DX: I25.10 Atherosclerotic heart disease of native coronary artery without angina pectoris (principal); I10 Essential (primary) hypertension; R43.8 Other disturbances of smell and taste
CPT/HCPCS: 36415; 80053; 80061; 82607; 82746; 83735; 84443; 84590; 84630; 85025

== ENCOUNTER → 2025-07-15 | Outpatient (CLI) | payer MEDICARE, SELFPAY ==
[2025-07-15 13:08] LABS: PSA,Total- Diagnostic 2.75 ng/mL (0.00-4.00)
== END | disposition home or self-care (01) ==
LOC: MTLAB 09:17
PROVIDERS: PCP Family Medicine; Referring Provider Urology; Visit Provider Urology
DX: R97.20 Elevated prostate specific antigen [PSA] (principal)
CPT/HCPCS: 36415; 84153